=== PATIENT | female | born 1950 | race Caucasian/White ===

== ENCOUNTER 2016-07-24 12:58 | Emergency (ER) | payer MEDICARE ==
[~2016-07-24] VITALS: Ht 157.5 cm; Wt 75.3 kg
[~2016-07-24 12:58] MED LIST: ACET325T16 PO; AMLO10TA2 PO; ASPI81TA2 PO; ATOR20TA58 PO; CARI350T PO; CARV12.52 PO; CARV6.252 PO; CLOP75TA27 PO; FURO-69 PO; FURO40TA4 PO; HYDR-2666 PO; HYDR-2762 PO; HYDR-2868 PO; IBUP-1007 PO; INSU100C4 SQ; INSU100I11 SQ; INSU100I27 SQ; INSU100V13 SQ; ISOS30TA4 PO; POTA10TA10 PO; amlodipine PO; cozaar PO
[2016-07-24 13:44] LABS: BASO # 0.1 x10^3/uL (0.0-0.2); BASO % 1 % (0-3); EOS % 2 % (0-3); HEMATOCRIT 41.3 % (36.0-47.0); HEMOGLOBIN 14.1 g/dL (12.0-15.5); LYMPH # 1.6 x10^3/uL (1.0-4.8); LYMPH % 20 % (24-48); MEAN CORPUSCULAR HEMOGLOBIN 31 pg (25-35); MEAN CORPUSCULAR HGB CONC 34 g/dL (31-37); MEAN CORPUSCULAR VOLUME 92 fL (79-100); MONO % 7 % (0-9); NEUT % 71 % (31-73); PLATELET COUNT 217 x10^3/uL (140-400); RED BLOOD COUNT 4.51 x10^6/uL (3.50-5.40); RED CELL DISTRIBUTION WIDTH 13.3 % (11.5-14.5); WHITE BLOOD COUNT 8.3 x10^3/uL (4.0-11.0)
[2016-07-24 13:59] LABS: CALCIUM 9.4 mg/dL (8.5-10.1); CREATININE 1.2 mg/dL (0.6-1.0); GFR 45.1; POTASSIUM 4.3 mmol/L (3.5-5.1)
--- NOTE | 2016-07-24 14:15 | PHYS DOC ---
Past Medical History Past Medical History: CHF, CVA, Diabetes-Type II, Diverticulitis, High Cholesterol, Hypertension, TIA, Other Past Surgical History: Appendectomy, Cholecystectomy, Hysterectomy, Pacemaker, Other Additional Past Surgical Histo: exp lap, diverticulits surgery Alcohol Use: None Drug Use: None Adult General Chief Complaint Chief Complaint: OTHER COMPLAINTS [facility] HPI Patient is a 65 year old female who presents with for evaluation of atraumatic right neck pain that is constant and intermittent worsens. This pain has been present for weeks. She had an episode of worsening pain in her PCPs office associated with nausea, lightheadedness, and full body numbness. No LOC or chest pain. She had an EKG performed showing elevation in V2 and was sent to the ED for further eval. She now only has right neck pain. States it has calmed down back to her baseline pain. She denies headache, dizziness, numbness, tingling, weakness, vision changes, n/v, f/c, chest pain, dyspnea, cough, abd pain, leg pain or swelling. Review of Systems Review of Systems Constitutional: Denies fever or chills [] Eyes: Denies change in visual acuity, redness, or eye pain [] HENT: Denies nasal congestion or sore throat [] Respiratory: Denies cough or shortness of breath [] Cardiovascular: No additional information not addressed in HPI [] GI: Denies abdominal pain, nausea, vomiting, bloody stools or diarrhea [] : Denies dysuria or hematuria [] Musculoskeletal: Denies back pain or joint pain [] Integument: Denies rash or skin lesions [] Neurologic: Denies headache, focal weakness or sensory changes [] Endocrine: Denies polyuria or polydipsia [] Current Medications Current Medications Current Medications Medications (Trade) Dose Ordered Sig/Aleksandra Start Time Stop Time Status Last Admin Dose Admin Diazepam (Valium) 2 mg 1X ONCE 07/24/16 14:30 07/24/16 14:31 DC 07/24/16 14:21 2 MG Info (Do NOT chart on this entry -- for MONITORING) 1 each PRN DAILY PRN 07/24/16 14:45 07/24/16 19:13 DC Iohexol (Omnipaque 300 Mg/ml) 60 ml 1X ONCE 07/24/16 14:30 07/24/16 14:32 DC 07/24/16 14:30 60 ML Allergies Allergies Allergies Coded Allergies Type Severity Reaction Last Updated Verified morphine Allergy Intermediate SWELLING 09/16/15 Yes codeine Adverse Reaction Intermediate 07/20/16 Yes promethazine Adverse Reaction Intermediate CONFUSION 09/16/15 Yes Physical Exam Physical Exam Constitutional: Well developed, well nourished, no acute distress, non-toxic appearance. [] HENT: Normocephalic, atraumatic, bilateral external ears normal, oropharynx moist, no oral exudates, nose normal. [] Eyes: PERRLA, EOMI, conjunctiva normal, no discharge. [] Neck: Normal range of motion, no midline spinal tenderness, supple, no stridor. Has tenderness to right trapezius muscle with palpable spasm; no visual abnormality [] Cardiovascular:Heart rate regular rhythm [] Lungs & Thorax: Bilateral breath sounds clear to auscultation [] Abdomen: Bowel sounds normal, soft, no tenderness. [] Skin: Warm, dry, no erythema, no rash. [] Back: No tenderness, no CVA tenderness. [] Extremities: No tenderness, ROM intact, no edema. [] Neurologic: Alert and oriented X 3, normal motor function, normal sensory function, no focal deficits noted, cranial nerves II through XII intact. [] Psychologic: Affect normal, judgement normal, mood normal. [] Current Patient Data Vital Signs Vital Signs Date Time Temp Pulse Resp B/P Pulse Ox O2 Delivery O2 Flow Rate FiO2 07/24/16 16:22 65 15 194/83 Room Air 07/24/16 15:29 97.7 92 97.7 Lab Values Laboratory Tests Test 07/24/16 13:30 White Blood Count 8.3x10^3/uL (4.0-11.0) Red Blood Count 4.51x10^6/uL (3.50-5.40) Hemoglobin 14.1g/dL (12.0-15.5) Hematocrit 41.3% (36.0-47.0) Mean Corpuscular Volume 92fL (79-100) Mean Corpuscular Hemoglobin 31pg (25-35) Mean Corpuscular Hemoglobin Concent 34g/dL (31-37) Red Cell Distribution Width 13.3% (11.5-14.5) Platelet Count 217x10^3/uL (140-400) Neutrophils (%) (Auto) 71% (31-73) Lymphocytes (%) (Auto) 20% (24-48) L Monocytes (%) (Auto) 7% (0-9) Eosinophils (%) (Auto) 2% (0-3) Basophils (%) (Auto) 1% (0-3) Neutrophils # (Auto) 5.9x10^3uL (1.8-7.7) Lymphocytes # (Auto) 1.6x10^3/uL (1.0-4.8) Monocytes # (Auto) 0.6x10^3/uL (0.0-1.1) Eosinophils # (Auto) 0.2x10^3/uL (0.0-0.7) Basophils # (Auto) 0.1x10^3/uL (0.0-0.2) Sodium Level 146mmol/L (136-145) H Potassium Level 4.3mmol/L (3.5-5.1) Chloride Level 107mmol/L (98-107) Carbon Dioxide Level 31mmol/L (21-32) Anion Gap 8 (6-14) Blood Urea Nitrogen 26mg/dL (7-20) H Creatinine 1.2mg/dL (0.6-1.0) H Estimated GFR (Cockcroft-Gault) 45.1 Glucose Level 111mg/dL (70-99) H Calcium Level 9.4mg/dL (8.5-10.1) Troponin I Quantitative < 0.017ng/mL (0.000-0.055) PH-Jqe-N-Type Natriuretic Peptide 1207pg/mL (0-124) H Laboratory Tests 07/24/16 13:30 Laboratory Tests 07/24/16 13:30 EKG EKG Outside EKG as interpreted by me showing slight elevation in lead V2, otherwise nonacute, similar to prior EKGs EKG as interpreted by me as ventricularly paced, rate 58, no ischemic changes, similar to prior Radiology/Procedures Radiology/Procedures Head and neck CT with IV contrast IMPRESSION: 1. Mild scattered atherosclerotic changes as described above. 2. Mild calcific plaquing at both carotid bifurcations without evidence of significant stenosis. 2. No significant intracranial arterial abnormality is detected. DICTATED and SIGNED BY: VINEET BROWN MD DATE: 07/24/16 1551 Course & Med Decision Making Course & Med Decision Making Pertinent Labs and Imaging studies reviewed. (See chart for details) Workup is unremarkable. She continues to feel well. Suspect vasovagal event associated with severe muscle spasm, but offered admission for presyncopal episode for further workup. She would like to go home and follow up with her PCP. Return precautions given. She understands and agrees with plan. Dragon Disclaimer Dragon Disclaimer This electronic medical record was generated, in whole or in part, using a voice recognition dictation system. Departure Departure Impression: Primary Impression: Neck pain Disposition: HOME, SELF-CARE Condition: STABLE Referrals: LUI LUNDBERG (PCP) Patient Instructions: Musculoskeletal Pain Additional Instructions: Take cyclobenzaprine as needed for muscle spasm. Do not drink, drive or operate heavy machinery after taking cyclobenzaprine as it may make you sleepy. Follow- up with your primary care doctor. Return for any concerns. Scripts Cyclobenzaprine Hcl 5 Mg Tablet1 Tab PO TID PRN MUSCLE SPASMS #10 TAB Prov:Julisa CHILEL MD 07/24/16 Julisa CHILEL MD Jul 24, 2016 14:15
[2016-07-24] MEDS ORDERED: DIAZEPAM 10 MG/2 ML DISP.SYRIN. IV ONE (14:30)
[2016-07-24] MEDS ORDERED: IOHEXOL 300 MG/ML 75 ML VIAL IV ONE (14:30)
[2016-07-24] MEDS ORDERED: CONTRAST GIVEN MC PRN (14:45)
--- NOTE | 2016-07-24 14:57 | EKG ---
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
--- NOTE | 2016-07-24 16:05 | RAD ---
CTA of the head and neck with contrast, 07/24/2016: History: Neck pain, presyncope Multidetector CT imaging was performed following an IV bolus injection of iodinated contrast material. Multiplanar reconstructions were produced including 3-D volume rendered reconstructions of the major arteries. There is mild calcific plaquing involving the aortic arch without evidence of high-grade stenosis. The proximal, common carotid arteries are tortuous bilaterally. There is mild atherosclerotic plaquing at both carotid bifurcations with only minimal narrowing of the proximal internal carotid arteries. Both internal carotid arteries in the neck are widely patent up to the level of the inaja of [place]. There is only minimal calcific plaquing involving the cavernous segments. The anterior cerebral and middle cerebral arteries as well as their major branches are unremarkable. There is a prominent posterior communicating artery on the right. No aneurysm is evident. There is calcific plaquing at the origins of both vertebral arteries with only mild associated luminal narrowing. Both vertebral arteries in the neck are widely patent up to their junction with the basilar artery. There is minimal calcific plaquing involving the distal right vertebral artery. The basilar artery is unremarkable. The posterior cerebral arteries and their major branches show no abnormality. IMPRESSION: 1. Mild scattered atherosclerotic changes as described above. 2. Mild calcific plaquing at both carotid bifurcations without evidence of significant stenosis. 2. No significant intracranial arterial abnormality is detected. Note: Stenosis calculations for CT, MRA and conventional angiography are based upon determination of the distal ICA diameter in accordance with the NASCET methodology. Stenosis calculations for Doppler studies are derived from validated velocity criteria which are known to correlate with NASCET methodology of determining stenosis.
[2016-07-24 16:22] VITALS: BP 194/83
[2016-07-24] MEDS ORDERED: CYCL5TAB PO (16:29)
== END 2016-07-24 17:05 | disposition home or self-care (01) ==
LOC: ER 12:58
DX: M54.2 Cervicalgia (principal); M62.838 Other muscle spasm; R11.0 Nausea; R42 Dizziness and giddiness; R20.0 Anesthesia of skin; I11.0 Hypertensive heart disease with heart failure; I50.9 Heart failure, unspecified; E78.00 Pure hypercholesterolemia, unspecified; E11.9 Type 2 diabetes mellitus without complications; Z86.73 Personal history of transient ischemic attack (TIA), and cerebral infarction without residual deficits; Z88.8 Allergy status to other drugs, medicaments and biological substances; Z88.5 Allergy status to narcotic agent; Z96.89 Presence of other specified functional implants
CPT/HCPCS: 36415; 70496; 70498; 80048; 83880; 84484; 85027; 93005; 96374; 99285; J3360; Q9967

== ENCOUNTER → 2016-07-31 | Outpatient (CLI) | payer MEDICARE ==
[2016-07-24 16:22] VITALS: BP 194/83
[~2016-07-31] MED LIST changes: +CYCL5TAB PO
[2016-07-31 16:13] LABS: PROTHROMBIN TIME PATIENT 12.6 SEC (11.7-14.0)
[2016-07-31 16:47] LABS: ALBUMIN 3.4 g/dL (3.4-5.0); ALBUMIN/GLOBULIN RATIO 0.8 (1.0-1.7); CALCIUM 9.3 mg/dL (8.5-10.1); CREATININE 1.6 mg/dL (0.6-1.0); GFR 32.3; POTASSIUM 4.7 mmol/L (3.5-5.1); TOTAL BILIRUBIN 0.8 mg/dL (0.2-1.0); TOTAL PROTEIN 7.8 g/dL (6.4-8.2)
== END | disposition home or self-care (01) ==
LOC: SURGPAT 14:19
PROVIDERS: ATTEND Neurological Surgery
DX: M48.06 Spinal stenosis, lumbar region (principal); M43.16 Spondylolisthesis, lumbar region
CPT/HCPCS: 36415; 80053; 85610; 85730; 87641

== ENCOUNTER → 2017-03-06 | Outpatient (CLI) | payer MEDICARE ==
[~2017-03-06] VITALS: Ht 157.5 cm; Wt 81.6 kg
[2017-03-06] VITALS (20 sets, daily range): BP systolic 117–234; BP diastolic 65–112
[~2017-03-06] MED LIST changes: +ASPI-630 PO; -ASPI81TA2 PO; -CLOP75TA27 PO; +CLOP75TA57 PO; +CONTRAST GIVEN MC PRN; +FLUMAZENIL 0.5 MG/5 ML VIAL. IV ONE; +GELATIN SPONGE SIZE 12-7MM SPONGE. ONE; -HYDR-2666 PO; +HYDR-2758 PO; +IOHEXOL 300 MG/ML 75 ML VIAL IV ONE; +LIDOCAINE 1% / SOD BICARB 8.4% 20 ML VIAL. IJ ONE; +MIDAZOLAM HCL/PF 2 MG/2 ML VIAL. ONE; +NALOXONE 0.4 MG/ML VIAL. ONE; -POTA10TA10 PO; +POTA10TA12 PO; +fentaNYL PF VIAL 100 MCG/2 ML VIAL ONE
[2017-03-06 09:22] LABS: BASO # 0.1 x10^3/uL (0.0-0.2); BASO % 1 % (0-3); EOS % 5 % (0-3); HEMOGLOBIN 15.1 g/dL (12.0-15.5); LYMPH # 1.6 x10^3/uL (1.0-4.8); LYMPH % 24 % (24-48); MEAN CORPUSCULAR HEMOGLOBIN 30 pg (25-35); MEAN CORPUSCULAR HGB CONC 34 g/dL (31-37); MEAN CORPUSCULAR VOLUME 91 fL (79-100); MONO % 6 % (0-9); NEUT % 64 % (31-73); PLATELET COUNT 234 x10^3/uL (140-400); RED BLOOD COUNT 4.98 x10^6/uL (3.50-5.40); RED CELL DISTRIBUTION WIDTH 13.5 % (11.5-14.5); WHITE BLOOD COUNT 6.8 x10^3/uL (4.0-11.0)
[2017-03-06 09:43] LABS: INR 0.9 (0.8-1.1); PROTHROMBIN TIME PATIENT 11.8 SEC (11.7-14.0)
[2017-03-06] MEDS: amLODIPine BESYLATE 10 MG TABLET PO STA (09:52)
[2017-03-06] MEDS: LISINOPRIL 20 MG TABLET PO STA (09:52)
[2017-03-06] MEDS: CARVEDILOL 12.5 MG TABLET. PO STA (09:53)
[2017-03-06] MEDS: MIDAZOLAM HCL/PF 2 MG/2 ML VIAL. IV ONE (12:09)
[2017-03-06] MEDS: LIDOCAINE 1% / SOD BICARB 8.4% 20 ML VIAL. IJ ONE (12:09)
[2017-03-06] MEDS: fentaNYL PF VIAL 100 MCG/2 ML VIAL IV ONE (12:10)
--- NOTE | 2017-03-06 13:09 | RAD ---
CT-guided renal biopsy 03/06/2017 Indication: Nephrotic syndrome Discussion: The risks and benefits of the procedure were discussed the patient. Informed consent was obtained. The patient was brought to the CT scanner and placed in the prone position. Timeout procedure was performed. Due to inability to obtain routine AV access, a 4 Guinean vascular sheath was placed into the right brachial vein under direct ultrasound guidance. This was used for IV access during the case. CT imaging redemonstrates essentially normal renal anatomy. The inferior pole the left kidney was targeted for biopsy. 1% lidocaine without epinephrine was monitored for local anesthesia. Under intermittent CT guidance a 17-gauge guiding needle was advanced into the posterior inferior left renal cortex. 18-gauge core biopsy samples were obtained and divided amongst formalin and Leonel solution. Some bleeding was noted at the hub of the guiding needle following biopsy. Therefore Gelfoam embolization of the biopsy tract was performed. No further bleeding was identified. Repeat imaging was performed for removal of the guiding needle demonstrating no significant hematoma. Guiding needle was removed. Following a delay, repeat imaging was performed again demonstrating no significant retroperitoneal hematoma or other evidence of immediate complication. The patient remained hemodynamically stable throughout the procedure. The procedure was performed under conscious sedation including continuous cardiopulmonary monitoring via dedicated sedation nurse. Sedation time: 45 minutes. Impression: Successful CT-guided biopsy of the inferior pole, left kidney One or more of the following individualized dose reduction techniques were utilized for this examination: 1. Automated exposure control 2. Adjustment of the mA and/or kV according to patient size 3. Use of iterative reconstruction technique
--- NOTE | 2017-03-06 15:44 | RAD ---
Indication chronic renal disease. Assess for potential neoplasm. Axial images through the abdomen and pelvis were obtained. Approximately 60 cc of Omnipaque 300 was administered intravenously. No oral contrast was administered. Note is made of a biopsy to the left kidney several hours prior to this exam. No recent CT imaging of the abdomen is available. Note is made of a prior CT exam of the abdomen 07/13/2003. The lung bases are clear. The liver and spleen appear unremarkable. No pancreatic abnormality is seen. There are no adrenal masses. There is a left renal cyst measuring approximately 2 cm in greatest dimension. No solid masses seen associated with either kidney. Postbiopsy changes are noted about the left kidney. No significant central or retroperitoneal adenopathy in the abdomen is seen. In the pelvis occasional diverticula are seen associated with the large bowel. These are most numerous in the sigmoid colon. Active inflammation is not seen. There are some degenerative changes in the lumbar spine. IMPRESSION: No acute or significant finding seen in the abdomen or pelvis
--- NOTE | 2017-03-08 16:27 | PATHOLOGY ---
PATHOLOGY REPORT * * * * * * * * FINAL DIAGNOSIS: Percutaneous renal biopsy (gross examination only): - Specimen submitted to [email or web address] for evaluation. REPORT ELECTRONICALLY SIGNED BY: Munir Ray M.D. DATE/TIME: 03/08/2017 16:25 * * * * * * * * GROSS PATHOLOGY: A. Received fresh labeled Michelle Dunn and renal biopsy is a 1.2 x 0.1 cm presley tissue core, placed in formalin and forwarded to [facility] for further analysis. B. Received fresh labeled Michelle Dunn, and renal biopsy is a 1.2 x 0.1 cm red tissue core, placed in Leonel's solution and forwarded to [facility] for further analysis. (BRIANA; 03/06/2017) INITIAL CPT CODE(S): A; 69517 Professional services performed [place] [place] [address] Technical services performed by [facility] at [address] [place] [address], [place] [address]. SPECIMEN(S) RECEIVED: A.Percutaneous renal biopsy CLINICAL HISTORY: Nephrotic syndrome with morphologic changes PATIENT: VIRGIL DUNN /AGE: 4 1950 (Age: 66) PATIENT #: [id number] ALT CASE #: SPECIMEN COLLECTION DATE: 03/06/2017 SPECIMEN RECEIVED DATE: 03/06/2017 [facility] - [address] [place] [address] - PHONE: [phone] * * * END OF REPORT * * *
== END | disposition home or self-care (01) ==
LOC: CT 08:47
PROVIDERS: ATTEND Internal Medicine Nephrology
DX: I13.0 Hypertensive heart and chronic kidney disease with heart failure and stage 1 through stage 4 chronic kidney disease, or unspecified chronic kidney disease (principal); N18.9 Chronic kidney disease, unspecified; I50.9 Heart failure, unspecified; N04.9 Nephrotic syndrome with unspecified morphologic changes; E11.9 Type 2 diabetes mellitus without complications; Z95.5 Presence of coronary angioplasty implant and graft
CPT/HCPCS: 36415; 50200; 74177; 77012; 85025; 85610; J2250; J3010; Q9967; 99152; 99153; J2310; J3490

== ENCOUNTER → 2017-07-05 | Outpatient (CLI) | payer MEDICARE | END | disposition home or self-care (01) | LOC: KCIC CT 12:31 | DX: I67.82 Cerebral ischemia (principal); G31.89 Other specified degenerative diseases of nervous system; Z86.73 Personal history of transient ischemic attack (TIA), and cerebral infarction without residual deficits | CPT/HCPCS: 70450 ==

== ENCOUNTER → 2017-12-24 | Day surgery (SDC) | payer MEDICARE ==
[~2017-12-24] MED LIST changes: -ACET325T16 PO; -AMLO10TA2 PO; -ASPI-630 PO; -ATOR20TA58 PO; +BENZOCAINE ONE 20% MUCOSAL SPRAY.; -CARI350T PO; -CARV12.52 PO; -CARV6.252 PO; -CLOP75TA57 PO; -CONTRAST GIVEN MC PRN; -CYCL5TAB PO; -FLUMAZENIL 0.5 MG/5 ML VIAL. IV ONE; -FURO-69 PO; -FURO40TA4 PO; -GELATIN SPONGE SIZE 12-7MM SPONGE. ONE; -HYDR-2758 PO; -HYDR-2762 PO; -HYDR-2868 PO; -IBUP-1007 PO; -INSU100C4 SQ; -INSU100I11 SQ; -INSU100I27 SQ; -INSU100V13 SQ; -IOHEXOL 300 MG/ML 75 ML VIAL IV ONE; -ISOS30TA4 PO; -LIDOCAINE 1% / SOD BICARB 8.4% 20 ML VIAL. IJ ONE; +LIDOCAINE 1% PF 2 ML VIAL. ID; +LIDOCAINE 2% TOPICAL JELLY 5GM TUBE. TP; +LIDOCAINE 2% VISCOUS 15 ML SOLUTION.; -MIDAZOLAM HCL/PF 2 MG/2 ML VIAL. ONE; +MORPHINE SULFATE 2 MG/ML DISP.SYRIN. IV; -NALOXONE 0.4 MG/ML VIAL. ONE; +ONDANSETRON PF 4 MG/2 ML VIAL. IV; -POTA10TA12 PO; +PROCHLORPERAZINE 10 MG/2 ML VIAL. IV; +PROPOFOL 20 ML IV; -amlodipine PO; -cozaar PO; +fentaNYL PF VIAL 100 MCG/2 ML VIAL IV; -fentaNYL PF VIAL 100 MCG/2 ML VIAL ONE
[2017-12-24 11:50] LABS: POC GLUCOSE 128 mg/dL (70-99)
[2017-12-24] MEDS: IV RINGERS,LACTATED 1000ML 1,000 ML IV (12:05)
[2017-12-24] MEDS: LIDOCAINE 2% TOPICAL JELLY 5GM TUBE. TP (13:27)
[2017-12-24] MEDS: BENZOCAINE ONE 20% MUCOSAL SPRAY. MM (13:27)
[2017-12-24] MEDS: LIDOCAINE 2% VISCOUS 15 ML SOLUTION. SWSW (13:27)
== END | disposition home or self-care (01) ==
LOC: SURG 11:11
DX: I08.1 Rheumatic disorders of both mitral and tricuspid valves (principal); I13.0 Hypertensive heart and chronic kidney disease with heart failure and stage 1 through stage 4 chronic kidney disease, or unspecified chronic kidney disease; E11.22 Type 2 diabetes mellitus with diabetic chronic kidney disease; N18.3 Chronic kidney disease, stage 3 (moderate); K21.9 Gastro-esophageal reflux disease without esophagitis; E11.42 Type 2 diabetes mellitus with diabetic polyneuropathy; Z95.810 Presence of automatic (implantable) cardiac defibrillator; E78.00 Pure hypercholesterolemia, unspecified; Z79.01 Long term (current) use of anticoagulants; Z90.49 Acquired absence of other specified parts of digestive tract; E66.9 Obesity, unspecified; Z68.29 Body mass index [BMI] 29.0-29.9, adult; Z90.710 Acquired absence of both cervix and uterus; Z87.440 Personal history of urinary (tract) infections; M19.90 Unspecified osteoarthritis, unspecified site; Z98.890 Other specified postprocedural states; Z86.73 Personal history of transient ischemic attack (TIA), and cerebral infarction without residual deficits; Z86.19 Personal history of other infectious and parasitic diseases; Z80.0 Family history of malignant neoplasm of digestive organs; Z80.1 Family history of malignant neoplasm of trachea, bronchus and lung; Z83.6 Family history of other diseases of the respiratory system; Z83.3 Family history of diabetes mellitus; Z88.5 Allergy status to narcotic agent; Z88.8 Allergy status to other drugs, medicaments and biological substances; Z79.82 Long term (current) use of aspirin; Z79.899 Other long term (current) drug therapy; Z79.4 Long term (current) use of insulin; Z80.3 Family history of malignant neoplasm of breast; E44.1 Mild protein-calorie malnutrition
CPT/HCPCS: 76376; 82962; 93312; 93320; 93325; J2704

== ENCOUNTER 2018-08-24 17:50 | Inpatient (IN) | payer MEDICARE ==
[~2018-08-24] VITALS: Ht 157.5 cm; Wt 75.1 kg
[~2018-08-24 17:50] MED LIST changes: +ACET325T16 PO; +AMLO10TA8 PO; +ASPI-630 PO; +ATOR20TA58 PO; -BENZOCAINE ONE 20% MUCOSAL SPRAY.; +CARI350T PO; +CARV12.511 PO; +CARV6.2511 PO; +CLOP75TA57 PO; +CYCL5TAB PO; +FURO-69 PO; +FURO40TA4 PO; +FURO80TA72 PO; +HYDR-2761 PO; +HYDR-2765 PO; +HYDR-2868 PO; +HYDR-2869 PO; +HYDR100T24 PO; +IBUP-1007 PO; +INSU100C4 SQ; +INSU100I11 SQ; +INSU100I27 SQ; +INSU100V13 SQ; +ISOS30TA4 PO; -LIDOCAINE 1% PF 2 ML VIAL. ID; -LIDOCAINE 2% TOPICAL JELLY 5GM TUBE. TP; -LIDOCAINE 2% VISCOUS 15 ML SOLUTION.; +LISI-130 PO; -MORPHINE SULFATE 2 MG/ML DISP.SYRIN. IV; -ONDANSETRON PF 4 MG/2 ML VIAL. IV; +POTA10TA12 PO; -PROCHLORPERAZINE 10 MG/2 ML VIAL. IV; -PROPOFOL 20 ML IV; +SPIR25TA5 PO; +amlodipine PO; +cozaar PO; -fentaNYL PF VIAL 100 MCG/2 ML VIAL IV
[2018-08-24 19:42] VITALS: BP 149/80
[2018-08-24] MEDS ORDERED: FUROSEMIDE 40 MG/4 ML VIAL. IVP ONE (20:15)
[2018-08-24 20:17] LABS: BASE EXCESS ABG -7 mmol/L (-3-3); HCO3 ABG 22 mmol/L (21-28); PO2 ABG 162 mmHg (65-108); SAT O2 ABG 99 % (92-99)
[2018-08-24] MEDS ORDERED: ALBUTEROL SULFATE 2.5 MG/3 ML NEBU. NEB PRN (20:30)
[2018-08-24] MEDS ORDERED: DEXTROSE 50% 25 GM / 50ML DISP.SYRIN. IV PRN (20:30)
[2018-08-24] MEDS ORDERED: ONDANSETRON PF 4 MG/2 ML VIAL. IV PRN (20:30)
[2018-08-24] MEDS ORDERED: LORazepam 0.5 MG TABLET PO PRN (20:30)
[2018-08-24] MEDS: MILRINONE 20MG/100ML PREMIX 100 ML IV PRN (20:36)
[2018-08-24] MEDS ORDERED: cefTRIAXone IV Push 1 GM VIAL. IVP SCH (21:00)
[2018-08-24 21:02] LABS: FIO2 ABG 100; PCO2 ABG 60 mmHg (35-46)
[2018-08-24] MEDS: AZITHROMYCIN 250 MG TABLET. PO SCH (21:58)
[2018-08-24] MEDS: LACTOBACILLUS RHAMNOSUS GG 1 CAPSULE. PO SCH (21:58)
[2018-08-24] MEDS: ATORVASTATIN CALCIUM 10 MG TABLET. PO SCH (21:58)
[2018-08-24] MEDS: NYSTATIN TOPICAL POWDER 15GM BOTTLE. TP SCH (22:11)
[2018-08-24 22:32] VITALS: BP 162/71
[2018-08-25 03:02] VITALS: BP 156/70
[2018-08-25] MEDS: MILRINONE 20MG/100ML PREMIX 100 ML IV PRN ×2 (05:42→16:39)
[2018-08-25 07:35] VITALS: BP 168/68
[2018-08-25] MEDS ORDERED: CARVEDILOL 3.125 MG TABLET. PO SCH (08:00)
[2018-08-25] MEDS: IPRATRPIUM/ALBUTEROL 0.5/2.5MG 3 ML NEBU. NEB SCH ×4 (08:40→19:31)
[2018-08-25 08:55] LABS: BASO % 1 % (0-3); EOS # 0.1 x10^3/uL (0.0-0.7); EOS % 2 % (0-3); HEMATOCRIT 26.9 % (36.0-47.0); HEMOGLOBIN 8.7 g/dL (12.0-15.5); LYMPH # 0.6 x10^3/uL (1.0-4.8); LYMPH % 7 % (24-48); MEAN CORPUSCULAR HEMOGLOBIN 30 pg (25-35); MEAN CORPUSCULAR HGB CONC 33 g/dL (31-37); MEAN CORPUSCULAR VOLUME 92 fL (79-100); MONO # 0.6 x10^3/uL (0.0-1.1); MONO % 7 % (0-9); NEUT % 84 % (31-73); PLATELET COUNT 186 x10^3/uL (140-400); RED BLOOD COUNT 2.93 x10^6/uL (3.50-5.40); RED CELL DISTRIBUTION WIDTH 15.1 % (11.5-14.5); WHITE BLOOD COUNT 8.4 x10^3/uL (4.0-11.0)
[2018-08-25] MEDS ORDERED: ATOR10TA60 PO (09:12)
[2018-08-25] MEDS ORDERED: ALBU2.5V5 NEB (09:12)
[2018-08-25] MEDS ORDERED: AZIT500T PO (09:13)
[2018-08-25] MEDS ORDERED: CARV3.12 PO (09:14)
[2018-08-25] MEDS ORDERED: IPRA3AMP29 NEB (09:16)
[2018-08-25 09:21] LABS: BASE EXCESS ABG -5 mmol/L (-3-3); HCO3 ABG 21 mmol/L (21-28); PCO2 ABG 39 mmHg (35-46); PO2 ABG 69 mmHg (65-108); SAT O2 ABG 95 % (92-99)
[2018-08-25 09:22] LABS: FIO2 ABG 35%
[2018-08-25] MEDS ORDERED: AMLO10TA8 PO (09:22)
[2018-08-25] MEDS ORDERED: NYST15PO9 TP (09:22)
[2018-08-25] MEDS ORDERED: LACT1CAP19 PO (09:22)
[2018-08-25] MEDS ORDERED: LORA0.5T PO (09:22)
[2018-08-25] MEDS ORDERED: ISOS30TA4 PO (09:22)
[2018-08-25] MEDS ORDERED: HYDR100T24 PO (09:22)
[2018-08-25] MEDS ORDERED: GUAI600T47 PO (09:22)
[2018-08-25] MEDS ORDERED: SERT50TA PO (09:22)
[2018-08-25 09:35] LABS: ALBUMIN 2.4 g/dL (3.4-5.0); ALBUMIN/GLOBULIN RATIO 0.8 (1.0-1.7); CALCIUM 8.9 mg/dL (8.5-10.1); CREATININE 3.1 mg/dL (0.6-1.0); POTASSIUM 4.4 mmol/L (3.5-5.1); TOTAL BILIRUBIN 0.3 mg/dL (0.2-1.0); TOTAL PROTEIN 5.3 g/dL (6.4-8.2)
[2018-08-25] MEDS: ISOSORBIDE MONONITRATE ER 30 MG TAB.ER.24H PO SCH (09:49)
[2018-08-25] MEDS: LACTOBACILLUS RHAMNOSUS GG 1 CAPSULE. PO SCH ×2 (09:49→21:00)
[2018-08-25] MEDS: FUROSEMIDE 40 MG/4 ML VIAL. IVP SCH ×2 (09:49→14:09)
[2018-08-25] MEDS: SERTRALINE 50 MG TABLET. PO SCH (09:50)
[2018-08-25] MEDS: amLODIPine BESYLATE 10 MG TABLET PO SCH (09:50)
[2018-08-25] MEDS: CLOPIDOGREL BISULFATE 75 MG TABLET PO SCH (09:51)
--- NOTE | 2018-08-25 09:54 | PDOC ---
PROGRESS NOTES Subjective Subjective Please see recent consultation note from [facility]. Patient initially admitted for community-acquired pneumonia and acute on chronic systolic heart failure. Transfer to [facility] for progressive respiratory failure. Patient continues to complain of dyspnea and is presently on BiPAP. Objective Objective Vital Signs Date Time Temp Pulse Resp B/P (MAP) Pulse Ox O2 Delivery O2 Flow Rate FiO2 08/25/18 08:40 95 BiPAP/CPAP 08/25/18 07:35 98.7 104 24 168/68 (101) 98.7 08/24/18 19:42 6.0 Intake and Output 08/25/18 06:59 Intake Total 0 ml Output Total 200 ml Balance -200 ml Intake Oral 0 ml Output Urine Total 200 ml Physical Exam Abdomen: Soft, No tenderness Heart: Regular rate Extremities: Other (1+edema) General: mild distress, Other (on BiPAP) HEENT: Atraumatic Lungs: Other (bilateral basal crepitations) Psych/Mental Status: Mood NL Assessment Assessment 1. Acute respiratory failure secondary to combination of pneumonia and acute on chronic systolic heart failure. Patient had inadequate diuresis with intravenous Lasix. Started on milrinone infusion for inotropic support overnight. 2. NICM s/p biventricular ICD/STRATIGRAPHER-D implantation. Recent device check showed normal function. 2-D echo showed LVEF 30-35% 3. Hypertension: Blood pressure elevated. Increase Coreg dose for better control. 4. CKD stage IV: Nephrology consult 5. diabetes mellitus - per PCP Comment Review of Relevant I have reviewed the following items octavio (where applicable) has been applied. Labs Laboratory Tests Test 08/24/18 20:04 08/25/18 07:43 08/25/18 08:20 08/25/18 09:15 O2 Saturation 99 % (92-99) 95 % (92-99) Arterial Blood pH 7.18 (7.35-7.45) 7.35 (7.35-7.45) Arterial Blood pCO2 at Patient Temp 60 mmHg (35-46) 39 mmHg (35-46) Arterial Blood pO2 at Patient Temp 162 mmHg (65-108) 69 mmHg (65-108) Arterial Blood HCO3 22 mmol/L (21-28) 21 mmol/L (21-28) Arterial Blood Base Excess -7 mmol/L (-3-3) -5 mmol/L (-3-3) FiO2 100 35% Glucose (Fingerstick) 132 mg/dL (70-99) White Blood Count 8.4 x10^3/uL (4.0-11.0) Red Blood Count 2.93 x10^6/uL (3.50-5.40) Hemoglobin 8.7 g/dL (12.0-15.5) Hematocrit 26.9 % (36.0-47.0) Mean Corpuscular Volume 92 fL (79-100) Mean Corpuscular Hemoglobin 30 pg (25-35) Mean Corpuscular Hemoglobin Concent 33 g/dL (31-37) Red Cell Distribution Width 15.1 % (11.5-14.5) Platelet Count 186 x10^3/uL (140-400) Neutrophils (%) (Auto) 84 % (31-73) Lymphocytes (%) (Auto) 7 % (24-48) Monocytes (%) (Auto) 7 % (0-9) Eosinophils (%) (Auto) 2 % (0-3) Basophils (%) (Auto) 1 % (0-3) Neutrophils # (Auto) 7.0 x10^3uL (1.8-7.7) Lymphocytes # (Auto) 0.6 x10^3/uL (1.0-4.8) Monocytes # (Auto) 0.6 x10^3/uL (0.0-1.1) Eosinophils # (Auto) 0.1 x10^3/uL (0.0-0.7) Basophils # (Auto) 0.0 x10^3/uL (0.0-0.2) Sodium Level 144 mmol/L (136-145) Potassium Level 4.4 mmol/L (3.5-5.1) Chloride Level 110 mmol/L (98-107) Carbon Dioxide Level 22 mmol/L (21-32) Anion Gap 12 (6-14) Blood Urea Nitrogen 38 mg/dL (7-20) Creatinine 3.1 mg/dL (0.6-1.0) Estimated GFR (Cockcroft-Gault) 15.0 BUN/Creatinine Ratio 12 (6-20) Glucose Level 154 mg/dL (70-99) Calcium Level 8.9 mg/dL (8.5-10.1) Total Bilirubin 0.3 mg/dL (0.2-1.0) Aspartate Amino Transf (AST/SGOT) 17 U/L (15-37) Alanine Aminotransferase (ALT/SGPT) 14 U/L (14-59) Alkaline Phosphatase 127 U/L (46-116) BT-Twr-[id number]-Type Natriuretic Peptide > 18231 pg/mL (0-124) Total Protein 5.3 g/dL (6.4-8.2) Albumin 2.4 g/dL (3.4-5.0) Albumin/Globulin Ratio 0.8 (1.0-1.7) Medications Current Medications Albuterol Sulfate (Ventolin Neb Soln) 2.5 mg PRN Q4HRS PRN NEB SHORTNESS OF BREATH; Start 08/24/18 at 20:30 Albuterol/ Ipratropium (Duoneb) 3 ml RTQID NEB Last administered on 08/25/18at 08:40; Start 08/25/18 at 08:00 Amlodipine Besylate (Norvasc) 10 mg DAILY PO ; Start 08/25/18 at 09:00 Atorvastatin Calcium (Lipitor) 10 mg QHS PO Last administered on 08/24/18at 21: 58; Start 08/24/18 at 21:00 Azithromycin (Zithromax) 500 mg QHS PO Last administered on 08/24/18at 21:58; Start 08/24/18 at 21:00 Carvedilol (Coreg) 3.125 mg BIDWMEALS PO ; Start 08/25/18 at 08:00 Ceftriaxone Sodium (Rocephin) 1 gm Q24H IVP Last administered on 08/24/18at 22: 03; Start 08/24/18 at 21:00 Clopidogrel Bisulfate (Plavix) 75 mg DAILYWBKFT PO ; Start 08/25/18 at 08:00 Dextrose (Dextrose 50%-Water Syringe) 12.5 gm PRN Q15MIN PRN IV SEE COMMENTS; Start 08/24/18 at 20:30 Furosemide (Lasix) 40 mg 1X ONCE IVP Last administered on 08/24/18at 20:46; Start 08/24/18 at 20:15; Stop 08/24/18 at 20:16; Status DC Furosemide (Lasix) 40 mg BID92 IVP ; Start 08/25/18 at 09:00 Guaifenesin (Mucinex) 600 mg BID PO Last administered on 08/24/18 21:58; Start 08/24/18 at 21:00 Hydralazine HCl (Apresoline) 100 mg TID PO Last administered on 08/24/18at 22:02 ; Start 08/24/18 at 21:00 Isosorbide Mononitrate (Imdur) 30 mg DAILY PO ; Start 08/25/18 at 09:00 Lactobacillus Rhamnosus (Culturelle) 1 cap BID PO Last administered on at 21:58; Start 08/24/18 at 21:00 Lorazepam (Ativan) 0.5 mg PRN Q8HRS PRN PO ANXIETY / AGITATION; Start 08/24/18 at 20:30 Milrinone Lactate/ Dextrose 100 ml @ 0 mls/hr CONT PRN IV SEE I/O RECORD Last administered on 08/25/18at 05:42; Start 08/24/18 at 20:15 Nystatin (Nystop) 1 tejas BID TP Last administered on 08/24/18at 22:11; Start at 21:00 Ondansetron HCl (Zofran) 4 mg PRN Q4HRS PRN IV NAUSEA/VOMITING; Start 08/24/18 at 20:30 Sertraline HCl (Zoloft) 50 mg DAILY PO ; Start 08/25/18 at 09:00 Vitals/I & O Vital Sign - Last 24 Hours 08/24/18 08/24/18 08/24/18 08/24/18 19:42 20:15 22:02 22:32 Temp 98.0 97.6 98.0 97.6 Pulse 93 95 Resp 26 18 B/P (MAP) 149/80 (103) 124/59 162/71 (101) Pulse Ox 90 99 94 O2 Delivery Nasal Cannula BiPAP/CPAP BiPAP/CPAP O2 Flow Rate 6.0 08/24/18 08/24/18 08/25/18 08/25/18 23:00 23:22 01:41 03:02 Temp 97.7 97.7 Pulse 103 Resp 24 B/P (MAP) 156/70 (98) Pulse Ox 99 92 95 O2 Delivery Bi-pap BiPAP/CPAP BiPAP/CPAP BiPAP/CPAP 08/25/18 08/25/18 08/25/18 03:39 07:35 08:40 Temp 98.7 98.7 Pulse 104 Resp 24 B/P (MAP) 168/68 (101) Pulse Ox 96 94 95 O2 Delivery BiPAP/CPAP BiPAP/CPAP BiPAP/CPAP Intake and Output 08/24/18 08/24/18 08/25/18 14:59 22:59 06:59 Intake Total 0 ml Output Total 200 ml Balance -200 ml ИВАН ARTHUR MD Aug 25, 2018 09:54
[2018-08-25] MEDS: NYSTATIN TOPICAL POWDER 15GM BOTTLE. TP SCH ×2 (10:05→22:18)
--- NOTE | 2018-08-25 10:31 | RAD ---
CHEST AP ONLY Clinical Indication: WORSENING SHORTNESS OF BREATH Comparison: 01/03/2018 two-view chest x-ray exam. Findings: Triple lead left-sided ICD is present. Limited pulmonary inflation. The cardiomediastinal silhouette is normal. Retrocardiac left basilar consolidation and small pleural effusion noted. Very small right pleural effusion may present. There is no pneumothorax. No acute bone abnormality. IMPRESSION: Left basilar consolidation and pleural effusion. Small right pleural effusion. These findings are new in the interval. Electronically signed by: Ethan Anderson MD (08/25/2018 10:28 AM) [facility]
[2018-08-25 11:01] VITALS: BP 178/69
--- NOTE | 2018-08-25 11:10 | HP ---
ADMIT DATE: 08/25/2018 HISTORY OF PRESENT ILLNESS: The patient is a 67-year-old female patient who was admitted originally to [facility] on 08/21/2018 with increasing shortness of breath that has started 2 days prior to admission associated with cough that is mostly dry. She also noted that her left foot and lower leg is swollen more than the right. She denied any chest pain. She does not believe that she has any fever at home. She has no history of lung disease before. She was evaluated in the Emergency Room, has had lab work, which showed that her white cell count was normal. Her chemistry showed that she has chronic kidney disease. The BUN 38, creatinine 2.4. Her chest x-ray showed that the patient has mild cardiomegaly with bibasilar opacities, seems to have developed consolidation, although atelectasis may have similar appearance. She has small left-sided pleural effusion, but no pneumothorax and she was admitted with community-acquired pneumonia and possible congestive heart failure exacerbation. She was treated with the ceftriaxone and Zithromax and was admitted to [facility]. She was seen in consultation by Cardiology team as apparently she is well known to the Cardiology team, Dr. Angeles, he made some adjustments to her medication including starting her on Imdur and IV Lasix and he actually planned to transfer her to [facility] if the changes that she made not result in any improvement and therefore she was transferred to [facility]. She was started on milrinone drip. She did have an echocardiogram done there showed that she has left ventricular systolic function, it is moderately impaired, ejection fraction is 30-35% and there is a pacemaker lead in the right atrium and right ventricle. There is mild mitral regurgitation, trace tricuspid regurgitation. There is a trace circumferential pericardial effusion. PAST MEDICAL HISTORY: Significant for hypertension, hyperlipidemia, sick sinus syndrome, status post permanent pacemaker, type 2 diabetes mellitus, chronic kidney disease. She has history of hepatitis C that was treated 2 years ago. She has also left middle cerebral artery territory infarct with right-sided hemiplegia, aphasia and dysphagia. She has generalized osteoarthritis. PAST SURGICAL HISTORY: Significant for permanent pacemaker placement, colonoscopy, esophagogastroduodenoscopy, bilateral cataract extraction, tonsillectomy, cholecystectomy, appendectomy, total abdominal hysterectomy, and bilateral salpingo-oophorectomy. ALLERGIES: She is allergic to SULFA DRUGS, CODEINE, MORPHINE and PROMETHAZINE. MEDICATIONS: She was transferred to [facility] to continue on following medications: Flexeril 5 mg 3 times a day, Plavix 75 mg once a day, atorvastatin 20 mg at bedtime, hydralazine 50 mg in the morning and 100 mg at bedtime, carvedilol 25 mg twice a day, spironolactone 25 mg daily, aspirin 81 mg once a day, hydrocodone/APAP 5/325 one tablet every 6 hours. She is also on NovoLog insulin 10 units before meals and Levemir 26 units at bedtime. FAMILY HISTORY: She has one full sister who at age of 46 because of congestive heart failure and alcoholism. Her father at the age of 42 because of emphysema. Mother at the age of 42 because of breast cancer. SOCIAL HISTORY: She is , has 2 daughters, one of her daughters at the age of 46 because of what seemed to be over an overdose. She does not smoke, drink alcohol or recreational drugs. 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 Upon arrival, she was short of breath and her blood gases showed that her pH was 7.18, pCO2 of 60 and pO2 162. Her bicarbonate was 22 on FiO2 of 100%. She has had lab work done and the results, which were still pending at the time of this dictation. PHYSICAL EXAMINATION: GENERAL: When I examined her, she was resting, slightly propped up in bed, clearly tachypneic, pale, but no jaundice, cyanosis, or thyromegaly. No jugular venous distension. No lower limb edema. VITAL SIGNS: Her heart rate was 104, blood pressure 168/68, temperature was 98.7, respiratory rate 24, and oxygen saturation was 95% on BiPAP machine. HEAD: Showed normocephalic, atraumatic. NECK: Supple. HEART: Showed normal first and second heart sounds. No gallop, rub or murmur. CHEST: Shows central trachea, equal bilateral expansion, air entry, vesicular sounds. No crepitation or rhonchi. ABDOMEN: Distended, soft, nontender. NEUROLOGIC: She is awake, alert, responding appropriately. All cranial nerves intact. She has residual right-sided weakness. SUMMARY: In summary, this is a 67-year-old female patient who was originally admitted with community-acquired pneumonia. She has also acute on chronic systolic congestive heart failure as well as she has chronic kidney disease, hypertension, hyperlipidemia, sick sinus syndrome, status post permanent pacemaker, type 2 diabetes. She also has her left middle cerebral artery territory infarct with right-sided hemiplegia, aphasia and dysphagia. The nursing staff stated that she was choking on her medication yesterday. PLAN: My plan is to consult the Cardiology, Nephrology as well as the correctional facility nurse. We will also consult the speech therapist. I will repeat her blood gases this morning and continue with milrinone drip as recommended by the coloring room worker. RICK LUGO MD DR: MITZY/ishmael JOB#: [id number] / [id number]
[2018-08-25] MEDS ORDERED: PIP/TAZO PER PHARMACY MC PRN (13:00)
--- NOTE | 2018-08-25 13:03 | PDOC ---
PULMONARY PROGRESS NOTES Vitals Vital Signs Date Time Temp Pulse Resp B/P (MAP) Pulse Ox O2 Delivery O2 Flow Rate FiO2 08/25/18 11:53 95 Nasal Cannula 4.0 08/25/18 11:01 98.8 108 36 178/69 (105) 98.8 Lungs: Clear Labs Laboratory Tests Test 08/24/18 20:04 08/25/18 07:43 08/25/18 08:20 08/25/18 09:15 O2 Saturation 99 % (92-99) 95 % (92-99) Arterial Blood pH 7.18 (7.35-7.45) 7.35 (7.35-7.45) Arterial Blood pCO2 at Patient Temp 60 mmHg (35-46) 39 mmHg (35-46) Arterial Blood pO2 at Patient Temp 162 mmHg (65-108) 69 mmHg (65-108) Arterial Blood HCO3 22 mmol/L (21-28) 21 mmol/L (21-28) Arterial Blood Base Excess -7 mmol/L (-3-3) -5 mmol/L (-3-3) FiO2 100 35% Glucose (Fingerstick) 132 mg/dL (70-99) White Blood Count 8.4 x10^3/uL (4.0-11.0) Red Blood Count 2.93 x10^6/uL (3.50-5.40) Hemoglobin 8.7 g/dL (12.0-15.5) Hematocrit 26.9 % (36.0-47.0) Mean Corpuscular Volume 92 fL (79-100) Mean Corpuscular Hemoglobin 30 pg (25-35) Mean Corpuscular Hemoglobin Concent 33 g/dL (31-37) Red Cell Distribution Width 15.1 % (11.5-14.5) Platelet Count 186 x10^3/uL (140-400) Neutrophils (%) (Auto) 84 % (31-73) Lymphocytes (%) (Auto) 7 % (24-48) Monocytes (%) (Auto) 7 % (0-9) Eosinophils (%) (Auto) 2 % (0-3) Basophils (%) (Auto) 1 % (0-3) Neutrophils # (Auto) 7.0 x10^3uL (1.8-7.7) Lymphocytes # (Auto) 0.6 x10^3/uL (1.0-4.8) Monocytes # (Auto) 0.6 x10^3/uL (0.0-1.1) Eosinophils # (Auto) 0.1 x10^3/uL (0.0-0.7) Basophils # (Auto) 0.0 x10^3/uL (0.0-0.2) Sodium Level 144 mmol/L (136-145) Potassium Level 4.4 mmol/L (3.5-5.1) Chloride Level 110 mmol/L (98-107) Carbon Dioxide Level 22 mmol/L (21-32) Anion Gap 12 (6-14) Blood Urea Nitrogen 38 mg/dL (7-20) Creatinine 3.1 mg/dL (0.6-1.0) Estimated GFR (Cockcroft-Gault) 15.0 BUN/Creatinine Ratio 12 (6-20) Glucose Level 154 mg/dL (70-99) Calcium Level 8.9 mg/dL (8.5-10.1) Total Bilirubin 0.3 mg/dL (0.2-1.0) Aspartate Amino Transf (AST/SGOT) 17 U/L (15-37) Alanine Aminotransferase (ALT/SGPT) 14 U/L (14-59) Alkaline Phosphatase 127 U/L (46-116) GC-Gnp-F-Type Natriuretic Peptide > 44586 pg/mL (0-124) Total Protein 5.3 g/dL (6.4-8.2) Albumin 2.4 g/dL (3.4-5.0) Albumin/Globulin Ratio 0.8 (1.0-1.7) Test 08/25/18 12:12 Glucose (Fingerstick) 143 mg/dL (70-99) Laboratory Tests Test 08/24/18 20:04 08/25/18 07:43 08/25/18 08:20 08/25/18 09:15 O2 Saturation 99 % (92-99) 95 % (92-99) Arterial Blood pH 7.18 (7.35-7.45) 7.35 (7.35-7.45) Arterial Blood pCO2 at Patient Temp 60 mmHg (35-46) 39 mmHg (35-46) Arterial Blood pO2 at Patient Temp 162 mmHg (65-108) 69 mmHg (65-108) Arterial Blood HCO3 22 mmol/L (21-28) 21 mmol/L (21-28) Arterial Blood Base Excess -7 mmol/L (-3-3) -5 mmol/L (-3-3) FiO2 100 35% Glucose (Fingerstick) 132 mg/dL (70-99) White Blood Count 8.4 x10^3/uL (4.0-11.0) Red Blood Count 2.93 x10^6/uL (3.50-5.40) Hemoglobin 8.7 g/dL (12.0-15.5) Hematocrit 26.9 % (36.0-47.0) Mean Corpuscular Volume 92 fL (79-100) Mean Corpuscular Hemoglobin 30 pg (25-35) Mean Corpuscular Hemoglobin Concent 33 g/dL (31-37) Red Cell Distribution Width 15.1 % (11.5-14.5) Platelet Count 186 x10^3/uL (140-400) Neutrophils (%) (Auto) 84 % (31-73) Lymphocytes (%) (Auto) 7 % (24-48) Monocytes (%) (Auto) 7 % (0-9) Eosinophils (%) (Auto) 2 % (0-3) Basophils (%) (Auto) 1 % (0-3) Neutrophils # (Auto) 7.0 x10^3uL (1.8-7.7) Lymphocytes # (Auto) 0.6 x10^3/uL (1.0-4.8) Monocytes # (Auto) 0.6 x10^3/uL (0.0-1.1) Eosinophils # (Auto) 0.1 x10^3/uL (0.0-0.7) Basophils # (Auto) 0.0 x10^3/uL (0.0-0.2) Sodium Level 144 mmol/L (136-145) Potassium Level 4.4 mmol/L (3.5-5.1) Chloride Level 110 mmol/L (98-107) Carbon Dioxide Level 22 mmol/L (21-32) Anion Gap 12 (6-14) Blood Urea Nitrogen 38 mg/dL (7-20) Creatinine 3.1 mg/dL (0.6-1.0) Estimated GFR (Cockcroft-Gault) 15.0 BUN/Creatinine Ratio 12 (6-20) Glucose Level 154 mg/dL (70-99) Calcium Level 8.9 mg/dL (8.5-10.1) Total Bilirubin 0.3 mg/dL (0.2-1.0) Aspartate Amino Transf (AST/SGOT) 17 U/L (15-37) Alanine Aminotransferase (ALT/SGPT) 14 U/L (14-59) Alkaline Phosphatase 127 U/L (46-116) WQ-Shi-Z-Type Natriuretic Peptide > 41103 pg/mL (0-124) Total Protein 5.3 g/dL (6.4-8.2) Albumin 2.4 g/dL (3.4-5.0) Albumin/Globulin Ratio 0.8 (1.0-1.7) Test 08/25/18 12:12 Glucose (Fingerstick) 143 mg/dL (70-99) Medications Active Scripts Medications Dose Route/Sig Max Daily Dose Days Date Category Hydralazine Hcl 100 Mg Tablet 1 Tab PO TID 08/25/18 Reported Mucinex (Guaifenesin) 600 Mg Tablet.er 1 Tab PO BID 08/25/18 Reported Amlodipine Besylate 10 Mg Tablet 10 Mg PO DAILY 08/25/18 Reported Zoloft (Sertraline Hcl) 50 Mg Tablet 1 Tab PO DAILY 08/25/18 Reported Nystatin 15 Gm Powder 1 Betzy TP BID 08/25/18 Reported Lorazepam 0.5 Mg Tablet 1 Tab PO TID PRN PRN 08/25/18 Reported Culturelle (Lactobacillus Rhamnosus Gg) 1 Each Cap.sprink 1 Each PO BID 08/25/18 Reported Isosorbide Mononitrate Er (Isosorbide Mononitrate) 30 Mg Tab.er.24h 1 Tab PO DAILY 08/25/18 Reported Duoneb 0.5-3(2.5) Mg/3 Ml (Albuterol/Ipratropium) 3 Ml Ampul.neb 3 Ml NEB QID 08/25/18 Reported Coreg (Carvedilol) 3.125 Mg Tablet 3.125 Mg PO BIDWMEALS 08/25/18 Reported Zithromax (Azithromycin) 500 Mg Tablet 1 Tab PO DAILY 08/25/18 Reported Atorvastatin Calcium 10 Mg Tablet 10 Mg PO HS 08/25/18 Reported Albuterol Sulfate Neb Soln (Albuterol Sulfate) 2.5 Mg/3 Ml Vial.neb 1 Vial NEB PRN Q4HRS 08/25/18 Reported Levemir (Insulin Detemir) 100 Unit/1 Ml Vial 26 Unit SQ HS 07/20/16 Reported Novolog (Insulin Aspart) 100 Unit/1 Ml Cartridge 10 Unit SQ TIDAC 07/20/16 Reported Plavix (Clopidogrel Bisulfate) 75 Mg Tablet 75 Mg PO DAILY 09/15/15 Reported Impression . NOTE DICTATED ACUTE HYPERCAPNIA RESP FAILURE AGREE WITH CURRENT RX CHANGE ANTIBX TO ZOSYN ABG NOTED SPOKE WITH COLLEEN BANEGAS MD Aug 25, 2018 13:03
[2018-08-25] MEDS: CARVEDILOL 6.25 MG TABLET. PO SCH (13:09)
[2018-08-25] MEDS: METOPROLOL TARTRATE 5 MG/5 ML VIAL. IVP SCH ×2 (14:09→17:59)
[2018-08-25] MEDS: PIPERACILLIN/TAZOBACTAM 2.25 GM in IV NORMAL SALINE 50ML 50 ML IV SCH ×2 (14:10→17:59)
[2018-08-25] MEDS: HEPARIN for SUB-Q USE 5,000 UNIT/ML VIAL. SQ SCH ×2 (14:17→22:20)
[2018-08-25 15:14] VITALS: BP 154/67
[2018-08-25 19:40] VITALS: BP 151/67
[2018-08-25] MEDS: ATORVASTATIN CALCIUM 10 MG TABLET. PO SCH (21:00)
[2018-08-25] MEDS: AZITHROMYCIN 250 MG TABLET. PO SCH (21:00)
[2018-08-25 23:10] VITALS: BP 139/63
[2018-08-26] VITALS (42 sets, daily range): BP systolic 98–217; BP diastolic 53–94
[2018-08-26] MEDS: PIPERACILLIN/TAZOBACTAM 2.25 GM in IV NORMAL SALINE 50ML 50 ML IV SCH ×4 (02:29→18:11)
[2018-08-26] MEDS: METOPROLOL TARTRATE 5 MG/5 ML VIAL. IVP SCH ×4 (02:30→18:14)
[2018-08-26 04:54] LABS: HEMATOCRIT 27.1 % (36.0-47.0); HEMOGLOBIN 8.8 g/dL (12.0-15.5); RED BLOOD COUNT 2.96 x10^6/uL (3.50-5.40); RED CELL DISTRIBUTION WIDTH 15.3 % (11.5-14.5); WHITE BLOOD COUNT 8.5 x10^3/uL (4.0-11.0)
[2018-08-26 05:48] LABS: ALBUMIN 2.5 g/dL (3.4-5.0); ALBUMIN/GLOBULIN RATIO 0.7 (1.0-1.7); CALCIUM 9.3 mg/dL (8.5-10.1); CREATININE 3.5 mg/dL (0.6-1.0); POTASSIUM 4.1 mmol/L (3.5-5.1); TOTAL BILIRUBIN 0.4 mg/dL (0.2-1.0)
[2018-08-26] MEDS: HEPARIN for SUB-Q USE 5,000 UNIT/ML VIAL. SQ SCH ×2 (05:59→14:23)
[2018-08-26] MEDS: MILRINONE 20MG/100ML PREMIX 100 ML IV PRN (06:15)
[2018-08-26] MEDS: IPRATRPIUM/ALBUTEROL 0.5/2.5MG 3 ML NEBU. NEB SCH ×4 (07:33→19:21)
[2018-08-26] MEDS: CLOPIDOGREL BISULFATE 75 MG TABLET PO SCH (08:00)
[2018-08-26] MEDS: CARVEDILOL 6.25 MG TABLET. PO SCH ×2 (08:00→17:00)
--- NOTE | 2018-08-26 08:20 | CONS ---
DATE OF CONSULTATION: 08/25/2018 ATTENDING PHYSICIAN: Dr. Ramachandran. REASON FOR CONSULTATION: The patient is seen in pulmonary consultation at the request of Dr. Ramachandran for hypercapnic respiratory failure. HISTORY OF PRESENT ILLNESS: The patient is a 67-year-old that never smoked, no history of asthma, presented to the Emergency Department on 08/21/2018 at [facility] with increasing shortness of breath, left lower extremity edema. No chest pain. No pressure. The patient was ultimately transferred to [facility]. Yesterday, she had an arterial blood gas of pH of 7.18, paCO2 of 60, pO2 of 162. She was placed on BiPAP. Repeat arterial blood gas, pH of 7.32, paCO2 of 39, paO2 of 69. The patient has multiple comorbidities including cardiomyopathy with ejection fraction 30-35%. She has had previous biventricular ICD implantation. She is currently being treated with milrinone for inotropic support. She has been seen by Cardiology and treated for both acute on chronic systolic heart failure. She has had a chest x-ray, which revealed consolidation of the left lower lobe. I was asked to see her in consultation. The patient is also having some difficulty swallowing. She failed her dysphagia study. She is currently on Zithromax and ceftriaxone. She denies hemoptysis. No nausea, vomiting or diarrhea. PAST MEDICAL HISTORY: 1. Cardiomyopathy with ejection fraction of 30-35%, previous biventricular ICD placement. 2. Hyperlipidemia. 3. Type 2 diabetes. 4. Chronic kidney disease. 5. Hepatitis C. She was treated 2 years ago. 6. Previous infarct of left middle cerebral artery with right-sided hemiplegia, aphasia and dysphagia. 7. Generalized osteoarthritis. PAST SURGICAL HISTORY: Status post pacemaker implantation. She has had previous EGD, bilateral cataract extraction, tonsillectomy, cholecystectomy, appendectomy, total abdominal oophorectomy. ALLERGIES: LISTED TO CODEINE, MORPHINE AND PROMETHAZINE. REVIEW OF SYSTEMS: As indicated above, otherwise, a 10-point system was reviewed and negative. CURRENT MEDICATIONS: List was reviewed. PHYSICAL EXAMINATION: VITAL SIGNS: The patient was in no significant respiratory distress, currently on noninvasive ventilation with BiPAP. O2 saturation greater than 92%. HEENT: Eyes, the sclerae were nonicteric. NECK: Jugular venous distention was not elevated. No lymphadenopathy. CHEST: Full expansion. LUNGS: Adequate airflow with diminished breath sounds in the left base. CARDIOVASCULAR: Regular rate and rhythm with S1, S2. No S3. ABDOMEN: Soft, nontender, nondistended. EXTREMITIES: No clubbing, cyanosis, 1+ edema. NEUROLOGIC: The patient was awake, alert, following commands. A detailed neuro exam was not performed. LABORATORY DATA: Reviewed as indicated above. Chest x-ray as indicated above. IMPRESSION: 1. Acute hypercapnic hypoxemic respiratory failure. 2. Abnormal x-ray compatible with pneumonia, left lower lobe consolidation. 3. Acute on chronic systolic heart failure. 4. Previous history of cerebrovascular accident with dysphagia with right-sided hemiplegia and aphasia, improved. 5. Type 2 diabetes. 6. Obesity. 7. Hepatitis C, treated 2 years ago. PLAN: 1. Continue diuresis. 2. Continue BiPAP. 3. N.p.o. 4. May need nutritional support with Dobhoff tube placement. 5. Diurese. 6. Monitor BUN and creatinine. 7. Continue Rocephin and Zithromax. I do appreciate the privilege in sharing in the patient's care. COLLEEN QUIROS MD DR: VITO/ishmael JOB#: [id number] / [id number]
[2018-08-26] MEDS: LACTOBACILLUS RHAMNOSUS GG 1 CAPSULE. PO SCH ×2 (08:54→21:00)
[2018-08-26] MEDS: ISOSORBIDE MONONITRATE ER 30 MG TAB.ER.24H PO SCH (08:55)
[2018-08-26] MEDS: SERTRALINE 50 MG TABLET. PO SCH (08:55)
[2018-08-26] MEDS: amLODIPine BESYLATE 10 MG TABLET PO SCH (08:55)
--- NOTE | 2018-08-26 09:00 | PDOC ---
PULMONARY PROGRESS NOTES Subjective PT ON BIPAP NOT BETTER Vitals Vital Signs Date Time Temp Pulse Resp B/P (MAP) Pulse Ox O2 Delivery O2 Flow Rate FiO2 08/26/18 07:32 96 BiPAP/CPAP 08/26/18 07:19 98.5 101 22 158/69 (98) 98.5 08/25/18 11:53 4.0 ROS: No Nausea, No Chest Pain, No Abdominal Pain, No Increase Cough General: Alert Lungs: Crackles Cardiovascular: S1, S2 Abdomen: Soft Neuro Exam: Alert Extremities: Other (EDEMA) Skin: Warm Labs Laboratory Tests Test 08/24/18 20:04 08/25/18 07:43 08/25/18 08:20 08/25/18 09:15 O2 Saturation 99 % (92-99) 95 % (92-99) Arterial Blood pH 7.18 (7.35-7.45) 7.35 (7.35-7.45) Arterial Blood pCO2 at Patient Temp 60 mmHg (35-46) 39 mmHg (35-46) Arterial Blood pO2 at Patient Temp 162 mmHg (65-108) 69 mmHg (65-108) Arterial Blood HCO3 22 mmol/L (21-28) 21 mmol/L (21-28) Arterial Blood Base Excess -7 mmol/L (-3-3) -5 mmol/L (-3-3) FiO2 100 35% Glucose (Fingerstick) 132 mg/dL (70-99) White Blood Count 8.4 x10^3/uL (4.0-11.0) Red Blood Count 2.93 x10^6/uL (3.50-5.40) Hemoglobin 8.7 g/dL (12.0-15.5) Hematocrit 26.9 % (36.0-47.0) Mean Corpuscular Volume 92 fL (79-100) Mean Corpuscular Hemoglobin 30 pg (25-35) Mean Corpuscular Hemoglobin Concent 33 g/dL (31-37) Red Cell Distribution Width 15.1 % (11.5-14.5) Platelet Count 186 x10^3/uL (140-400) Neutrophils (%) (Auto) 84 % (31-73) Lymphocytes (%) (Auto) 7 % (24-48) Monocytes (%) (Auto) 7 % (0-9) Eosinophils (%) (Auto) 2 % (0-3) Basophils (%) (Auto) 1 % (0-3) Neutrophils # (Auto) 7.0 x10^3uL (1.8-7.7) Lymphocytes # (Auto) 0.6 x10^3/uL (1.0-4.8) Monocytes # (Auto) 0.6 x10^3/uL (0.0-1.1) Eosinophils # (Auto) 0.1 x10^3/uL (0.0-0.7) Basophils # (Auto) 0.0 x10^3/uL (0.0-0.2) Sodium Level 144 mmol/L (136-145) Potassium Level 4.4 mmol/L (3.5-5.1) Chloride Level 110 mmol/L (98-107) Carbon Dioxide Level 22 mmol/L (21-32) Anion Gap 12 (6-14) Blood Urea Nitrogen 38 mg/dL (7-20) Creatinine 3.1 mg/dL (0.6-1.0) Estimated GFR (Cockcroft-Gault) 15.0 BUN/Creatinine Ratio 12 (6-20) Glucose Level 154 mg/dL (70-99) Calcium Level 8.9 mg/dL (8.5-10.1) Total Bilirubin 0.3 mg/dL (0.2-1.0) Aspartate Amino Transf (AST/SGOT) 17 U/L (15-37) Alanine Aminotransferase (ALT/SGPT) 14 U/L (14-59) Alkaline Phosphatase 127 U/L (46-116) GI-Bvo-N-Type Natriuretic Peptide > 89622 pg/mL (0-124) Total Protein 5.3 g/dL (6.4-8.2) Albumin 2.4 g/dL (3.4-5.0) Albumin/Globulin Ratio 0.8 (1.0-1.7) Test 08/25/18 12:12 08/25/18 20:50 08/26/18 03:50 Glucose (Fingerstick) 143 mg/dL (70-99) 119 mg/dL (70-99) White Blood Count 8.5 x10^3/uL (4.0-11.0) Red Blood Count 2.96 x10^6/uL (3.50-5.40) Hemoglobin 8.8 g/dL (12.0-15.5) Hematocrit 27.1 % (36.0-47.0) Mean Corpuscular Volume 92 fL (79-100) Mean Corpuscular Hemoglobin 30 pg (25-35) Mean Corpuscular Hemoglobin Concent 33 g/dL (31-37) Red Cell Distribution Width 15.3 % (11.5-14.5) Platelet Count 198 x10^3/uL (140-400) Sodium Level 144 mmol/L (136-145) Potassium Level 4.1 mmol/L (3.5-5.1) Chloride Level 110 mmol/L (98-107) Carbon Dioxide Level 21 mmol/L (21-32) Anion Gap 13 (6-14) Blood Urea Nitrogen 42 mg/dL (7-20) Creatinine 3.5 mg/dL (0.6-1.0) Estimated GFR (Cockcroft-Gault) 13.0 BUN/Creatinine Ratio 12 (6-20) Glucose Level 136 mg/dL (70-99) Calcium Level 9.3 mg/dL (8.5-10.1) Total Bilirubin 0.4 mg/dL (0.2-1.0) Aspartate Amino Transf (AST/SGOT) 20 U/L (15-37) Alanine Aminotransferase (ALT/SGPT) 17 U/L (14-59) Alkaline Phosphatase 120 U/L (46-116) Total Protein 6.0 g/dL (6.4-8.2) Albumin 2.5 g/dL (3.4-5.0) Albumin/Globulin Ratio 0.7 (1.0-1.7) Laboratory Tests Test 08/25/18 09:15 08/25/18 12:12 08/25/18 20:50 08/26/18 03:50 O2 Saturation 95 % (92-99) Arterial Blood pH 7.35 (7.35-7.45) Arterial Blood pCO2 at Patient Temp 39 mmHg (35-46) Arterial Blood pO2 at Patient Temp 69 mmHg (65-108) Arterial Blood HCO3 21 mmol/L (21-28) Arterial Blood Base Excess -5 mmol/L (-3-3) FiO2 35% Glucose (Fingerstick) 143 mg/dL (70-99) 119 mg/dL (70-99) White Blood Count 8.5 x10^3/uL (4.0-11.0) Red Blood Count 2.96 x10^6/uL (3.50-5.40) Hemoglobin 8.8 g/dL (12.0-15.5) Hematocrit 27.1 % (36.0-47.0) Mean Corpuscular Volume 92 fL (79-100) Mean Corpuscular Hemoglobin 30 pg (25-35) Mean Corpuscular Hemoglobin Concent 33 g/dL (31-37) Red Cell Distribution Width 15.3 % (11.5-14.5) Platelet Count 198 x10^3/uL (140-400) Sodium Level 144 mmol/L (136-145) Potassium Level 4.1 mmol/L (3.5-5.1) Chloride Level 110 mmol/L (98-107) Carbon Dioxide Level 21 mmol/L (21-32) Anion Gap 13 (6-14) Blood Urea Nitrogen 42 mg/dL (7-20) Creatinine 3.5 mg/dL (0.6-1.0) Estimated GFR (Cockcroft-Gault) 13.0 BUN/Creatinine Ratio 12 (6-20) Glucose Level 136 mg/dL (70-99) Calcium Level 9.3 mg/dL (8.5-10.1) Total Bilirubin 0.4 mg/dL (0.2-1.0) Aspartate Amino Transf (AST/SGOT) 20 U/L (15-37) Alanine Aminotransferase (ALT/SGPT) 17 U/L (14-59) Alkaline Phosphatase 120 U/L (46-116) Total Protein 6.0 g/dL (6.4-8.2) Albumin 2.5 g/dL (3.4-5.0) Albumin/Globulin Ratio 0.7 (1.0-1.7) Medications Active Scripts Medications Dose Route/Sig Max Daily Dose Days Date Category Hydralazine Hcl 100 Mg Tablet 1 Tab PO TID 08/25/18 Reported Mucinex (Guaifenesin) 600 Mg Tablet.er 1 Tab PO BID 08/25/18 Reported Amlodipine Besylate 10 Mg Tablet 10 Mg PO DAILY 08/25/18 Reported Zoloft (Sertraline Hcl) 50 Mg Tablet 1 Tab PO DAILY 08/25/18 Reported Nystatin 15 Gm Powder 1 Betzy TP BID 08/25/18 Reported Lorazepam 0.5 Mg Tablet 1 Tab PO TID PRN PRN 08/25/18 Reported Culturelle (Lactobacillus Rhamnosus Gg) 1 Each Cap.sprink 1 Each PO BID 08/25/18 Reported Isosorbide Mononitrate Er (Isosorbide Mononitrate) 30 Mg Tab.er.24h 1 Tab PO DAILY 08/25/18 Reported Duoneb 0.5-3(2.5) Mg/3 Ml (Albuterol/Ipratropium) 3 Ml Ampul.neb 3 Ml NEB QID 08/25/18 Reported Coreg (Carvedilol) 3.125 Mg Tablet 3.125 Mg PO BIDWMEALS 08/25/18 Reported Zithromax (Azithromycin) 500 Mg Tablet 1 Tab PO DAILY 08/25/18 Reported Atorvastatin Calcium 10 Mg Tablet 10 Mg PO HS 08/25/18 Reported Albuterol Sulfate Neb Soln (Albuterol Sulfate) 2.5 Mg/3 Ml Vial.neb 1 Vial NEB PRN Q4HRS 08/25/18 Reported Levemir (Insulin Detemir) 100 Unit/1 Ml Vial 26 Unit SQ HS 07/20/16 Reported Novolog (Insulin Aspart) 100 Unit/1 Ml Cartridge 10 Unit SQ TIDAC 07/20/16 Reported Plavix (Clopidogrel Bisulfate) 75 Mg Tablet 75 Mg PO DAILY 09/15/15 Reported Impression . IMPRESSION: 1. Acute hypercapnic hypoxemic respiratory failure. 2. Abnormal x-ray compatible with pneumonia, left lower lobe consolidation. 3. Acute on chronic systolic heart failure. 4. Previous history of cerebrovascular accident with dysphagia with right- sided hemiplegia and aphasia, improved. 5. Type 2 diabetes. 6. Obesity. 7. Hepatitis C, treated 2 years ago. Plan . BIPAP NPO FOR NOW MAY NEED DOBHOFF CONTINUE ANTIBX COLLEEN QUIROS MD Aug 26, 2018 09:00
[2018-08-26] MEDS: FUROSEMIDE 40 MG/4 ML VIAL. IVP SCH (09:14)
--- NOTE | 2018-08-26 09:41 | PDOC ---
[facility] OFFICE COORDINATOR 08/26/18 0941: CARDIO Progress Notes Date and Time Date of Service 08/26/18 Time of Evaluation 0926 Subjective Subjective: Other (dyspneic- requiring BiPAP) Vitals Vitals Vital Signs Date Time Temp Pulse Resp B/P (MAP) Pulse Ox O2 Delivery O2 Flow Rate FiO2 08/26/18 09:24 95 BiPAP/CPAP 08/26/18 07:19 98.5 101 22 158/69 (98) 98.5 08/25/18 11:53 4.0 Weight Weight [ ] Input and Output Intake and Output Intake and Output 08/26/18 06:59 Intake Total 0 ml Output Total 450 ml Balance -450 ml Intake Oral 0 ml Output Urine Total 450 ml Laboratory Labs Laboratory Tests Test 08/25/18 12:12 08/25/18 17:10 08/25/18 20:50 08/26/18 03:50 Glucose (Fingerstick) 143 mg/dL (70-99) 150 mg/dL (70-99) 119 mg/dL (70-99) White Blood Count 8.5 x10^3/uL (4.0-11.0) Red Blood Count 2.96 x10^6/uL (3.50-5.40) Hemoglobin 8.8 g/dL (12.0-15.5) Hematocrit 27.1 % (36.0-47.0) Mean Corpuscular Volume 92 fL (79-100) Mean Corpuscular Hemoglobin 30 pg (25-35) Mean Corpuscular Hemoglobin Concent 33 g/dL (31-37) Red Cell Distribution Width 15.3 % (11.5-14.5) Platelet Count 198 x10^3/uL (140-400) Sodium Level 144 mmol/L (136-145) Potassium Level 4.1 mmol/L (3.5-5.1) Chloride Level 110 mmol/L (98-107) Carbon Dioxide Level 21 mmol/L (21-32) Anion Gap 13 (6-14) Blood Urea Nitrogen 42 mg/dL (7-20) Creatinine 3.5 mg/dL (0.6-1.0) Estimated GFR (Cockcroft-Gault) 13.0 BUN/Creatinine Ratio 12 (6-20) Glucose Level 136 mg/dL (70-99) Calcium Level 9.3 mg/dL (8.5-10.1) Total Bilirubin 0.4 mg/dL (0.2-1.0) Aspartate Amino Transf (AST/SGOT) 20 U/L (15-37) Alanine Aminotransferase (ALT/SGPT) 17 U/L (14-59) Alkaline Phosphatase 120 U/L (46-116) Total Protein 6.0 g/dL (6.4-8.2) Albumin 2.5 g/dL (3.4-5.0) Albumin/Globulin Ratio 0.7 (1.0-1.7) Test 08/26/18 07:00 Glucose (Fingerstick) 133 mg/dL (70-99) Physical Exam HEENT: Neck Supple W Full Motion LUNGS: Other (diminished bases) Heart: S1S2, RRR (v-paced) Extremities: Other (1+ bilateral LE edema ) Neurology: alert, follow commands Assessment Assessment 1. Acute respiratory failure. multifactorial in the setting of PNA and a/c HF. requiring BiPAP 2. Acute on chronic systolic heart failure; on milrinone. UOP marginal. CR continue to trend ^. Now 3.5- baseline near 2.0 2. NICM s/p Bi-V ICD/PRIVATE INQUIRY AGENT-D; LVEF 30-35% 3. Hypertension; labile. Oral pills held as patient on BiPAP 4. OLMAN on CKD; nephrology consulted 5. DM, II Recommendations Hold lasix with worsening RF No TRAE/ARB with OLMAN Hydralazine IV while unable to take PO. Follow renal recs Ongoing treatment on PNA EDWARDO PEARSON MD 08/27/18 0821: CARDIO Progress Notes Plan Plan Late entry for 08/26/2018. Patient seen and examined. Agree with above nurse practitioner note. Continues to have respiratory distress. Aggressive diuresis and milrinone support has not improved her respiratory status. Continues to have worsening renal function. We'll plan for a right heart catheterization on 08/27/2018 to determine her volume status. MARY BETH KINGSTON APRN Aug 26, 2018 09:41 EDWARDO PEARSON MD Aug 27, 2018 08:21
--- NOTE | 2018-08-26 10:07 | CONS ---
DATE OF CONSULTATION: REQUESTING PHYSICIAN: Hospitalist. REASON FOR CONSULTATION: Renal failure. HISTORY OF PRESENT ILLNESS: This is a 67-year-old female transferred to [facility]. She is admitted with a community-acquired infectious pneumonitis. The patient's history is also known for type 2 diabetes mellitus, hypertension, and chronic kidney disease. Due to increased level of azotemia, Nephrology evaluation was requested. 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 ALLERGIES: SULFA, CODEINE, MORPHINE and PROMETHAZINE. MEDICATIONS: Reviewed per medication list. FAMILY HISTORY: Noncontributory for renal disease. SOCIAL HISTORY: The patient is , has 2 daughters. Does not smoke, does not drink. REVIEW OF SYSTEMS: No headaches. The patient is unable to provide information. PHYSICAL EXAMINATION: GENERAL: The patient is somnolent, awakens, moans. HEENT: Face mask in place, sallow complexion. NECK: No increased JVD. No thyromegaly, mass, or adenopathy. LUNGS: Have decreased breath sound at bases. CARDIAC: Without S3 or rub. ABDOMEN: Obese. Bowel sounds are present. Nontender. EXTREMITIES: A 1+ bilateral lower extremity edema. NEUROLOGIC: Somnolent. LABORATORY DATA: White count of 8.4, hemoglobin 8.7, and hematocrit 26.9. Sodium 144, potassium 4.4, chloride 110, CO2 22, BUN 38, creatinine 3.1, and GFR is 15. IMPRESSION: 1. Chronic kidney disease, stage IV, now with acute exacerbation in setting of infectious pneumonitis. 2. Diabetes mellitus. RECOMMENDATIONS: 1. Treatment of pneumonia. 2. Fluid balance. 3. We will follow with you. BINDU IRELAND MD DR: PURA/ishmael JOB#: [id number] / [id number]
[2018-08-26] MEDS ORDERED: IV 1/2 NORMAL SALINE 1,000 ML IV SCH (10:30)
--- NOTE | 2018-08-26 12:25 | NUR ---
SS following for discharge planning. SS reviewed pt chart. Pt is from home with spouse and is currently requiring BIPAP. SS requested PT/OT orders. No discharge needs noted at this time. SS will await PT/OT evaluations and recommendations and will continue to follow for discharge planning.
[2018-08-26] MEDS ORDERED: NITROGLYCERIN PREMIX 250 ML IV ONE (12:30)
[2018-08-26] MEDS: NYSTATIN TOPICAL POWDER 15GM BOTTLE. TP SCH ×2 (12:54→21:00)
--- NOTE | 2018-08-26 14:03 | PDOC ---
Renal-Progress Notes Subjective Notes Notes SOB AND NEEDING BIPAP History of Present Illness Hx of present illness NOT ANY BETTER Vitals Vitals Vital Signs Date Time Temp Pulse Resp B/P (MAP) Pulse Ox O2 Delivery O2 Flow Rate FiO2 08/26/18 12:25 98 183/72 08/26/18 11:22 94 BiPAP/CPAP 08/26/18 10:51 98.2 22 98.2 08/25/18 11:53 4.0 Weight Weight [ ] I.O. Intake and Output Intake and Output 08/26/18 07:00 Intake Total 0 ml Output Total 450 ml Balance -450 ml Intake Oral 0 ml Output Urine Total 450 ml Labs Labs Laboratory Tests Test 08/25/18 17:10 08/25/18 20:50 08/26/18 03:50 08/26/18 07:00 Glucose (Fingerstick) 150 mg/dL (70-99) 119 mg/dL (70-99) 133 mg/dL (70-99) White Blood Count 8.5 x10^3/uL (4.0-11.0) Red Blood Count 2.96 x10^6/uL (3.50-5.40) Hemoglobin 8.8 g/dL (12.0-15.5) Hematocrit 27.1 % (36.0-47.0) Mean Corpuscular Volume 92 fL (79-100) Mean Corpuscular Hemoglobin 30 pg (25-35) Mean Corpuscular Hemoglobin Concent 33 g/dL (31-37) Red Cell Distribution Width 15.3 % (11.5-14.5) Platelet Count 198 x10^3/uL (140-400) Sodium Level 144 mmol/L (136-145) Potassium Level 4.1 mmol/L (3.5-5.1) Chloride Level 110 mmol/L (98-107) Carbon Dioxide Level 21 mmol/L (21-32) Anion Gap 13 (6-14) Blood Urea Nitrogen 42 mg/dL (7-20) Creatinine 3.5 mg/dL (0.6-1.0) Estimated GFR (Cockcroft-Gault) 13.0 BUN/Creatinine Ratio 12 (6-20) Glucose Level 136 mg/dL (70-99) Calcium Level 9.3 mg/dL (8.5-10.1) Total Bilirubin 0.4 mg/dL (0.2-1.0) Aspartate Amino Transf (AST/SGOT) 20 U/L (15-37) Alanine Aminotransferase (ALT/SGPT) 17 U/L (14-59) Alkaline Phosphatase 120 U/L (46-116) Total Protein 6.0 g/dL (6.4-8.2) Albumin 2.5 g/dL (3.4-5.0) Albumin/Globulin Ratio 0.7 (1.0-1.7) Test 08/26/18 11:47 Glucose (Fingerstick) 122 mg/dL (70-99) Review of Systems Constitutional: yes: weakness, alert, oriented Ears/Nose/Throat: Yes: no symptom reported Eyes: Yes: no symptom reported Cardiovascular: Yes no symptom reported Gastrointestional: Yes: no symptom reported Genitourinary: Yes: no symptom reported Musculoskeletal: Yes: muscle stiffness Skin: Yes no symptom reported Psychiatric/Neurological: Yes: no symptom reported Endocrine: Yes: no symptom reported Physical Exam General Appearance: mild distress Skin: warm Respiratory: decreased breath sounds Heart: S1S2 Abdomen: soft, bowel sounds present Genitourinary: bladder flat Neurology: alert, oriented Musculoskeletal: Osteoarthritis Assessment Assessment IMP OLMAN WITH CR UP TO 3.5 CKD STAGE 4 WITH CR OF ABOUT 2.0 AT BASELINE ACUTE HYPERCAPNIC HYPOXIC RESP FAILURE CM WITH AN EF OF ABOUT 30%-SYSTOLIC COMPONENT CHF ANEMIA OF CKD DM II HX ?PNEUMONIA PLAN DIURESE WHEN ABLE HOLD IVF'S MAY NEED INOTROPES CHECK IRON AND IF NEEDED EPOGEN UPDATED D/W CARDIOLOGY SAMIRA LYLES MD Aug 26, 2018 14:03
[2018-08-26] MEDS ORDERED: hydrALAZINE 20 MG/ML VIAL. IVP PRN (17:30)
[2018-08-26] MEDS: AZITHROMYCIN 250 MG TABLET. PO SCH (21:00)
[2018-08-26] MEDS: ATORVASTATIN CALCIUM 10 MG TABLET. PO SCH (21:00)
[2018-08-27] VITALS (45 sets, daily range): BP systolic 148–203; BP diastolic 66–140
[2018-08-27] MEDS: PIPERACILLIN/TAZOBACTAM 2.25 GM in IV NORMAL SALINE 50ML 50 ML IV SCH ×4 (00:56→17:40)
[2018-08-27] MEDS: METOPROLOL TARTRATE 5 MG/5 ML VIAL. IVP SCH ×5 (01:05→22:54)
[2018-08-27] MEDS: HEPARIN for SUB-Q USE 5,000 UNIT/ML VIAL. SQ SCH ×4 (01:09→22:53)
--- NOTE | 2018-08-27 01:11 | PN ---
DATE: 08/26/2018 SUBJECTIVE: The patient is resting flat in bed, on BiPAP machine, maintaining adequate saturations at 97% on FiO2 of 35%. She is n.p.o. as she has failed her video swallowing evaluation yesterday. She continued to be on milrinone. OBJECTIVE: GENERAL: When I examined her, she was pale, but not jaundiced or cyanosed from thyromegaly. No jugular venous distention. No lower limb edema. VITAL SIGNS: Her heart rate was 101, blood pressure was 158/69, temperature was 98.5, respiratory rate was 22 and oxygen saturation was 96% on BiPAP machine with an FiO2 of 35%. HEENT: Examination of the head, eyes, ears, nose and throat showed normocephalic, atraumatic. NECK: Supple. HEART: Showed normal first and second heart sounds. No gallop, rub or murmur. CHEST: Shows central trachea, equal bilateral expansion, air entry, vesicular sounds. I cannot really appreciate any crepitation or rhonchi anteriorly. ABDOMEN: Soft, nontender. NEUROLOGIC: She was sleepy, but arousable. All cranial nerves intact. She did have residual right-sided hemiplegia. Her intake was incompletely recorded, output was 200. LABORATORY DATA: Her lab work as of this morning showed her white cell count to be 8500, hemoglobin 8.8, hematocrit 27, MCV 92 and platelet count of 198,000. Her chemistry showed a serum sodium 144, potassium 4.1, chloride 110, bicarbonate 21, anion gap of 13, BUN 42, creatinine 3.5, estimated GFR was 13 mL per minute, her glucose was 136 and calcium was 9.3. Total bilirubin, AST and ALT were normal. Alkaline phosphatase slightly elevated. Her total protein was 6. Albumin 2.5. ASSESSMENT: 1. Acute respiratory failure secondary to combination of community-acquired pneumonia and tumcn-hj-ddwzzca systolic congestive heart failure. The patient was treated with IV Rocephin and Zithromax as well as IV Lasix. She continued to be short of breath. 2. The patient is known to have nonischemic cardiomyopathy, status post biventricular ICD implantation. Apparently, the device is functioning well. Her most recent echocardiogram showed left ventricular ejection fraction of 35%. 3. Hypertension, seems to be suboptimally controlled. She is on IV hydralazine, IV furosemide twice a day. 4. Nzahj-qi-deasuis kidney injury. Creatinine has risen from 3.1 to 3.5. 5. Type 2 diabetes mellitus, seems to be reasonably controlled. 6. She has obviously left middle cerebral artery territory infarct, right-sided hemiplegia, aphasia and dysphagia. The patient failed her video swallowing evaluation. She is now n.p.o. 7. She has severe protein-calorie malnutrition. Her serum albumin is only 2.5 g/dL. 8. Normochromic normocytic anemia. PLAN: Plan is to continue to keep the patient n.p.o., continue with IV antibiotic. Continue with nebulized treatment, IV hydralazine to control the blood pressure. I have already consulted the pile driver operator, wireline operator and sterile technician. The patient might obviously have a discussion with her regarding feeding tube placement and also hemodialysis as her kidney function is worsening. RICK LUGO MD DR: MITZY/ishmael JOB#: [id number] / [id number]
[2018-08-27 04:08] LABS: HEMATOCRIT 27.6 % (36.0-47.0); RED CELL DISTRIBUTION WIDTH 15.2 % (11.5-14.5); WHITE BLOOD COUNT 5.7 x10^3/uL (4.0-11.0)
[2018-08-27 04:22] LABS: CALCIUM 9.2 mg/dL (8.5-10.1); CREATININE 3.8 mg/dL (0.6-1.0); GFR 11.8; POTASSIUM 4.1 mmol/L (3.5-5.1)
[2018-08-27] MEDS: IPRATRPIUM/ALBUTEROL 0.5/2.5MG 3 ML NEBU. NEB SCH ×4 (07:30→20:00)
[2018-08-27] MEDS: NYSTATIN TOPICAL POWDER 15GM BOTTLE. TP SCH (08:00)
[2018-08-27] MEDS: CLOPIDOGREL BISULFATE 75 MG TABLET PO SCH (08:00)
[2018-08-27] MEDS: CARVEDILOL 6.25 MG TABLET. PO SCH ×2 (08:00→17:00)
[2018-08-27] MEDS: SERTRALINE 50 MG TABLET. PO SCH (09:00)
[2018-08-27] MEDS: LACTOBACILLUS RHAMNOSUS GG 1 CAPSULE. PO SCH ×2 (09:00→21:00)
[2018-08-27] MEDS: amLODIPine BESYLATE 10 MG TABLET PO SCH (09:00)
[2018-08-27] MEDS: ISOSORBIDE MONONITRATE ER 30 MG TAB.ER.24H PO SCH (09:00)
[2018-08-27] MEDS: fentaNYL PF VIAL 100 MCG/2 ML VIAL IV PRN ×2 (09:37→17:42)
--- NOTE | 2018-08-27 09:43 | PDOC ---
PULMONARY PROGRESS NOTES Subjective less soa/ using bipap qhs Vitals Vital Signs Date Time Temp Pulse Resp B/P (MAP) Pulse Ox O2 Delivery O2 Flow Rate FiO2 08/27/18 07:33 97 BiPAP/CPAP 08/27/18 06:40 81 167/78 (107) 08/27/18 03:30 98.6 22 98.6 ROS: No Nausea, No Chest Pain, No Abdominal Pain, No Increase Cough General: Alert, No acute distress Lungs: Other (decrease bs) Cardiovascular: S1, S2 Abdomen: Soft Neuro Exam: Alert Extremities: No Edema Skin: Warm Labs Laboratory Tests Test 08/25/18 12:12 08/25/18 17:10 08/25/18 20:50 08/26/18 03:50 Glucose (Fingerstick) 143 mg/dL (70-99) 150 mg/dL (70-99) 119 mg/dL (70-99) White Blood Count 8.5 x10^3/uL (4.0-11.0) Red Blood Count 2.96 x10^6/uL (3.50-5.40) Hemoglobin 8.8 g/dL (12.0-15.5) Hematocrit 27.1 % (36.0-47.0) Mean Corpuscular Volume 92 fL (79-100) Mean Corpuscular Hemoglobin 30 pg (25-35) Mean Corpuscular Hemoglobin Concent 33 g/dL (31-37) Red Cell Distribution Width 15.3 % (11.5-14.5) Platelet Count 198 x10^3/uL (140-400) Sodium Level 144 mmol/L (136-145) Potassium Level 4.1 mmol/L (3.5-5.1) Chloride Level 110 mmol/L (98-107) Carbon Dioxide Level 21 mmol/L (21-32) Anion Gap 13 (6-14) Blood Urea Nitrogen 42 mg/dL (7-20) Creatinine 3.5 mg/dL (0.6-1.0) Estimated GFR (Cockcroft-Gault) 13.0 BUN/Creatinine Ratio 12 (6-20) Glucose Level 136 mg/dL (70-99) Calcium Level 9.3 mg/dL (8.5-10.1) Total Bilirubin 0.4 mg/dL (0.2-1.0) Aspartate Amino Transf (AST/SGOT) 20 U/L (15-37) Alanine Aminotransferase (ALT/SGPT) 17 U/L (14-59) Alkaline Phosphatase 120 U/L (46-116) Total Protein 6.0 g/dL (6.4-8.2) Albumin 2.5 g/dL (3.4-5.0) Albumin/Globulin Ratio 0.7 (1.0-1.7) Test 08/26/18 07:00 08/26/18 11:47 08/26/18 17:06 08/26/18 20:54 Glucose (Fingerstick) 133 mg/dL (70-99) 122 mg/dL (70-99) 106 mg/dL (70-99) 87 mg/dL (70-99) Test 08/27/18 03:30 08/27/18 07:44 White Blood Count 5.7 x10^3/uL (4.0-11.0) Red Blood Count 3.00 x10^6/uL (3.50-5.40) Hemoglobin 9.0 g/dL (12.0-15.5) Hematocrit 27.6 % (36.0-47.0) Mean Corpuscular Volume 92 fL (79-100) Mean Corpuscular Hemoglobin 30 pg (25-35) Mean Corpuscular Hemoglobin Concent 33 g/dL (31-37) Red Cell Distribution Width 15.2 % (11.5-14.5) Platelet Count 164 x10^3/uL (140-400) Sodium Level 147 mmol/L (136-145) Potassium Level 4.1 mmol/L (3.5-5.1) Chloride Level 112 mmol/L (98-107) Carbon Dioxide Level 20 mmol/L (21-32) Anion Gap 15 (6-14) Blood Urea Nitrogen 42 mg/dL (7-20) Creatinine 3.8 mg/dL (0.6-1.0) Estimated GFR (Cockcroft-Gault) 11.8 Glucose Level 106 mg/dL (70-99) Calcium Level 9.2 mg/dL (8.5-10.1) Iron Level 18 ug/dL (50-170) Total Iron Binding Capacity 152 ug/dL (250-450) Iron Saturation 12 % (15-34) Glucose (Fingerstick) 100 mg/dL (70-99) Laboratory Tests Test 08/26/18 11:47 08/26/18 17:06 08/26/18 20:54 08/27/18 03:30 Glucose (Fingerstick) 122 mg/dL (70-99) 106 mg/dL (70-99) 87 mg/dL (70-99) White Blood Count 5.7 x10^3/uL (4.0-11.0) Red Blood Count 3.00 x10^6/uL (3.50-5.40) Hemoglobin 9.0 g/dL (12.0-15.5) Hematocrit 27.6 % (36.0-47.0) Mean Corpuscular Volume 92 fL (79-100) Mean Corpuscular Hemoglobin 30 pg (25-35) Mean Corpuscular Hemoglobin Concent 33 g/dL (31-37) Red Cell Distribution Width 15.2 % (11.5-14.5) Platelet Count 164 x10^3/uL (140-400) Sodium Level 147 mmol/L (136-145) Potassium Level 4.1 mmol/L (3.5-5.1) Chloride Level 112 mmol/L (98-107) Carbon Dioxide Level 20 mmol/L (21-32) Anion Gap 15 (6-14) Blood Urea Nitrogen 42 mg/dL (7-20) Creatinine 3.8 mg/dL (0.6-1.0) Estimated GFR (Cockcroft-Gault) 11.8 Glucose Level 106 mg/dL (70-99) Calcium Level 9.2 mg/dL (8.5-10.1) Iron Level 18 ug/dL (50-170) Total Iron Binding Capacity 152 ug/dL (250-450) Iron Saturation 12 % (15-34) Test 08/27/18 07:44 Glucose (Fingerstick) 100 mg/dL (70-99) Medications Active Scripts Medications Dose Route/Sig Max Daily Dose Days Date Category Hydralazine Hcl 100 Mg Tablet 1 Tab PO TID 08/25/18 Reported Mucinex (Guaifenesin) 600 Mg Tablet.er 1 Tab PO BID 08/25/18 Reported Amlodipine Besylate 10 Mg Tablet 10 Mg PO DAILY 08/25/18 Reported Zoloft (Sertraline Hcl) 50 Mg Tablet 1 Tab PO DAILY 08/25/18 Reported Nystatin 15 Gm Powder 1 Betzy TP BID 08/25/18 Reported Lorazepam 0.5 Mg Tablet 1 Tab PO TID PRN PRN 08/25/18 Reported Culturelle (Lactobacillus Rhamnosus Gg) 1 Each Cap.sprink 1 Each PO BID 08/25/18 Reported Isosorbide Mononitrate Er (Isosorbide Mononitrate) 30 Mg Tab.er.24h 1 Tab PO DAILY 08/25/18 Reported Duoneb 0.5-3(2.5) Mg/3 Ml (Albuterol/Ipratropium) 3 Ml Ampul.neb 3 Ml NEB QID 08/25/18 Reported Coreg (Carvedilol) 3.125 Mg Tablet 3.125 Mg PO BIDWMEALS 08/25/18 Reported Zithromax (Azithromycin) 500 Mg Tablet 1 Tab PO DAILY 08/25/18 Reported Atorvastatin Calcium 10 Mg Tablet 10 Mg PO HS 08/25/18 Reported Albuterol Sulfate Neb Soln (Albuterol Sulfate) 2.5 Mg/3 Ml Vial.neb 1 Vial NEB PRN Q4HRS 08/25/18 Reported Levemir (Insulin Detemir) 100 Unit/1 Ml Vial 26 Unit SQ HS 07/20/16 Reported Novolog (Insulin Aspart) 100 Unit/1 Ml Cartridge 10 Unit SQ TIDAC 07/20/16 Reported Plavix (Clopidogrel Bisulfate) 75 Mg Tablet 75 Mg PO DAILY 09/15/15 Reported Comments CXR CHF Impression . I 1. Acute hypercapnic/ hypoxemic respiratory failure due to CHF 2. Abnormal x-ray compatible with CHF/ cannot exclude pneumonia 3. Acute on chronic systolic heart failure. EF 30% 4. Previous history of cerebrovascular accident with dysphagia with right- sided hemiplegia and aphasia, improved. 5. Type 2 diabetes. 6. Obesity. 7. Hepatitis C, treated 2 years ago. 8. CKD Plan . BIPAP QHS RIGHT HEART CATH TODAY TO ASSESS VOLUME STATUS NPO FOR NOW MAY NEED DOBHOFF CONTINUE ANTIBX NON SMOKER/ NEBS MONITOR RENAL FUNCTION TD ANDRES MD Aug 27, 2018 09:43
--- NOTE | 2018-08-27 12:09 | PDOC ---
IRAJ CHOI SENIOR BOOKKEEPER 08/27/18 1209: CARDIO Progress Notes Date and Time Date of Service 08/27/2018 Time of Evaluation 1130 Subjective Subjective: No Chest Pain, No Palpitations, Other (still has SOA. ) Vitals Vitals Vital Signs Date Time Temp Pulse Resp B/P (MAP) Pulse Ox O2 Delivery O2 Flow Rate FiO2 08/27/18 11:36 Nasal Cannula 5.0 08/27/18 11:00 98.0 97 18 192/82 (118) 90 98.0 Weight Weight [ ] Input and Output Intake and Output Intake and Output 08/27/18 06:59 Intake Total 50 ml Output Total 900 ml Balance -850 ml Intake Oral 0 ml IV Total 50 ml Output Urine Total 900 ml # Bowel Movements 1 Laboratory Labs Laboratory Tests Test 08/26/18 17:06 08/26/18 20:54 08/27/18 03:30 08/27/18 07:44 Glucose (Fingerstick) 106 mg/dL (70-99) 87 mg/dL (70-99) 100 mg/dL (70-99) White Blood Count 5.7 x10^3/uL (4.0-11.0) Red Blood Count 3.00 x10^6/uL (3.50-5.40) Hemoglobin 9.0 g/dL (12.0-15.5) Hematocrit 27.6 % (36.0-47.0) Mean Corpuscular Volume 92 fL (79-100) Mean Corpuscular Hemoglobin 30 pg (25-35) Mean Corpuscular Hemoglobin Concent 33 g/dL (31-37) Red Cell Distribution Width 15.2 % (11.5-14.5) Platelet Count 164 x10^3/uL (140-400) Sodium Level 147 mmol/L (136-145) Potassium Level 4.1 mmol/L (3.5-5.1) Chloride Level 112 mmol/L (98-107) Carbon Dioxide Level 20 mmol/L (21-32) Anion Gap 15 (6-14) Blood Urea Nitrogen 42 mg/dL (7-20) Creatinine 3.8 mg/dL (0.6-1.0) Estimated GFR (Cockcroft-Gault) 11.8 Glucose Level 106 mg/dL (70-99) Calcium Level 9.2 mg/dL (8.5-10.1) Iron Level 18 ug/dL (50-170) Total Iron Binding Capacity 152 ug/dL (250-450) Iron Saturation 12 % (15-34) Test 08/27/18 11:57 Glucose (Fingerstick) 99 mg/dL (70-99) Review of Systems Constitutional: yes: weakness, alert, oriented Ears/Nose/Throat: Yes: no symptom reported Eyes: Yes: no symptom reported Cardiovascular: Yes no symptom reported Gastrointestional: Yes: no symptom reported Genitourinary: Yes: no symptom reported Musculoskeletal: Yes: muscle stiffness Skin: Yes no symptom reported Psychiatric/Neurological: Yes: no symptom reported Endocrine: Yes: no symptom reported Physical Exam HEENT: Neck Supple W Full Motion LUNGS: Other (basilar crackles) Heart: S1S2, RRR (v-paced) Abdomen: Soft N/T Extremities: Other (Trace bilateral LE edema ) Neurology: alert, oriented, follow commands Assessment Assessment 1. Acute respiratory failure. multifactorial in the setting of PNA, CHF. renal failure 2. Acute on chronic systolic heart failure; on milrinone. UOP marginal. CR continue to trend ^. Now 3.5- baseline near 2.0 2. 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 Hypertension; labile 4. OLMAN on CKD4; renal function worsening, nephrology following 5. DM, II Recommendations 1. Temporary HD due today for HD 2. Will note BP post HD and reeval needs. Meantime will DC NTG drip. Start on NTG paste. IV lopressor as pt failed swallow study. 3. Hold TRAE/ARB 4. Hydralazine IV PRN 5. Bipap PRN. 6. RHC on hold. EDWARDO PEARSON MD 08/27/18 1335: CARDIO Progress Notes Plan Plan Pt. seen and examined. Agree with above. Discussed with Dr. Granado. Plan for HD today. Cancel RHC. Supportive care. Will follow along IRAJ CHOI SENIOR BOOKKEEPER Aug 27, 2018 12:09 EDWARDO PEARSON MD Aug 27, 2018 13:35
[2018-08-27] MEDS: NITROGLYCERIN OINT 1 GM PACKET. TP SCH ×2 (12:27→17:41)
--- NOTE | 2018-08-27 12:56 | PDOC ---
Renal-Progress Notes Subjective Notes Notes STILL HAS SOB AND NOW SOME ANXIETY WELL History of Present Illness Hx of present illness OVERALL NOT GETTING ANY BETTER Vitals Vitals Vital Signs Date Time Temp Pulse Resp B/P (MAP) Pulse Ox O2 Delivery O2 Flow Rate FiO2 08/27/18 12:31 91 180/81 08/27/18 11:36 Nasal Cannula 5.0 08/27/18 11:00 98.0 18 90 98.0 Weight Weight [ ] I.O. Intake and Output Intake and Output 08/27/18 07:00 Intake Total 50 ml Output Total 900 ml Balance -850 ml Intake Oral 0 ml IV Total 50 ml Output Urine Total 900 ml # Bowel Movements 1 Labs Labs Laboratory Tests Test 08/26/18 17:06 08/26/18 20:54 08/27/18 03:30 08/27/18 07:44 Glucose (Fingerstick) 106 mg/dL (70-99) 87 mg/dL (70-99) 100 mg/dL (70-99) White Blood Count 5.7 x10^3/uL (4.0-11.0) Red Blood Count 3.00 x10^6/uL (3.50-5.40) Hemoglobin 9.0 g/dL (12.0-15.5) Hematocrit 27.6 % (36.0-47.0) Mean Corpuscular Volume 92 fL (79-100) Mean Corpuscular Hemoglobin 30 pg (25-35) Mean Corpuscular Hemoglobin Concent 33 g/dL (31-37) Red Cell Distribution Width 15.2 % (11.5-14.5) Platelet Count 164 x10^3/uL (140-400) Sodium Level 147 mmol/L (136-145) Potassium Level 4.1 mmol/L (3.5-5.1) Chloride Level 112 mmol/L (98-107) Carbon Dioxide Level 20 mmol/L (21-32) Anion Gap 15 (6-14) Blood Urea Nitrogen 42 mg/dL (7-20) Creatinine 3.8 mg/dL (0.6-1.0) Estimated GFR (Cockcroft-Gault) 11.8 Glucose Level 106 mg/dL (70-99) Calcium Level 9.2 mg/dL (8.5-10.1) Iron Level 18 ug/dL (50-170) Total Iron Binding Capacity 152 ug/dL (250-450) Iron Saturation 12 % (15-34) Test 08/27/18 11:57 Glucose (Fingerstick) 99 mg/dL (70-99) Review of Systems Constitutional: yes: weakness, alert, oriented Ears/Nose/Throat: Yes: no symptom reported Eyes: Yes: no symptom reported Pulmonary: Yes dyspnea Cardiovascular: Yes no symptom reported Gastrointestional: Yes: no symptom reported Genitourinary: Yes: no symptom reported Musculoskeletal: Yes: muscle stiffness Skin: Yes no symptom reported Psychiatric/Neurological: Yes: depressed, anxiety Endocrine: Yes: no symptom reported Physical Exam General Appearance: mild distress Skin: warm, dry, no edema Respiratory: decreased breath sounds Heart: S1S2, RRR Abdomen: soft, bowel sounds present Genitourinary: bladder flat Extremities: pulses present, no edema, atrophy Neurology: alert, oriented, follow commands Musculoskeletal: Osteoarthritis Assessment Assessment IMP OLMAN WITH CR UP TO 3.8-ATN AND POSSIBLE ESRD CKD STAGE 4 WITH CR OF ABOUT 2.0 AT BASELINE ACUTE HYPERCAPNIC HYPOXIC RESP FAILURE CM WITH AN EF OF ABOUT 30%-SYSTOLIC COMPONENT CHF ANEMIA OF CKD FE DEFICIENCY DM II HX ?PNEUMONIA PLAN RENAL FXN WORSE - NOT DIURESING WELL AND NOT TOLERATING IVF'S AT THIS POINT WILL NEED TO START HD AND REDUCE AFTER LOAD WILL HAVE IR PLACE TEMP HD CATHETER AND INITIATE HD MAY NEED INOTROPES START VENOFER AND ARANESP CHECK PO4 UPDATED PT AND FAMILY AGREEABLE TO STARTING HD D/W CARDIOLOGY SAMIRA LYLES MD Aug 27, 2018 12:56
--- NOTE | 2018-08-27 12:58 | NUR ---
SS following up with discharge planning. PT/OT recommending assisted unit. SS met with pt and discussed assisted unit and discharge planning. Pt reported that she has been to [facility] in [place] in the past. Pt reported that she had a stroke approximately one year ago and spent time in [facility] and [facility]. SS discussed rehab options in [place] with pt. Pt reported that she has a friend that works at [facility] in [place] and would prefer to go there for rehab. demand planner, Irma Rose, phoned and faxed referral to [facility] in [place], ; fax [phone]. SS notified pt's spouse and pt's RN.
[2018-08-27] MEDS ORDERED: IRON SUCROSE COMPLEX 500 MG in IV NORMAL SALINE 250ML 250 ML IV ONE (13:00)
[2018-08-27] MEDS ORDERED: LIDOCAINE WITH 8.4% SOD BICARB 3 ML DISP.SYRIN. ONE (15:08)
[2018-08-27] MEDS ORDERED: LIDOCAINE WITH 8.4% SOD BICARB 3 ML DISP.SYRIN. INJ ONE (15:30)
[2018-08-27] MEDS: hydrALAZINE 20 MG/ML VIAL. IVP PRN ×2 (15:32→20:31)
--- NOTE | 2018-08-27 15:40 | NUR ---
Patient went to have temporary dialysis catheter placed around 1540 & was back at around 1620. Per MARYCHUY Hancock in IR patient tolerated procedure well.
[2018-08-27] MEDS ORDERED: LIDOCAINE WITH 8.4% SOD BICARB 3 ML DISP.SYRIN. IJ ONE (16:00)
--- NOTE | 2018-08-27 16:09 | NUR ---
Pt tolerated procedure well. Pt rested well while on bipap. Report called to Petty on 2N.
--- NOTE | 2018-08-27 20:32 | NUR ---
Early this morning around 0800 patient taken off bipap & placed on 5L NC O2. Patient O2 sat running in low 90's with 5L NC. However, around 1530 while changing patient, she got worked up & desated to low 80's so bipap was put back on. Patient's O2 came back up to 90's once bipap was back on.
[2018-08-27] MEDS: ATORVASTATIN CALCIUM 10 MG TABLET. PO SCH (21:00)
[2018-08-27] MEDS ORDERED: DARBEPOETIN ALFA 60 MCG/0.3 ML DISP.SYRIN. SQ SCH (21:00)
[2018-08-27] MEDS: AZITHROMYCIN 250 MG TABLET. PO SCH (21:00)
[2018-08-27] MEDS ORDERED: NITROGLYCERIN PREMIX 250 ML IV ONE (22:00)
[2018-08-27] MEDS ORDERED: NITROGLYCERIN OINT 1 GM PACKET. TP ONE (23:30)
[2018-08-28] VITALS (8 sets, daily range): BP systolic 128–189; BP diastolic 67–97
--- NOTE | 2018-08-28 00:15 | PN ---
DATE: 08/27/2018 SUBJECTIVE: The patient is resting, slightly propped up in bed, in no apparent respiratory distress. She is awake, alert, complaining of dry mouth. Her blood pressure is high. She is now maintaining her oxygen saturation at 95% on 3 liters oxygen by nasal cannula. She denied any chest pain, feeling generally better. PHYSICAL EXAMINATION: GENERAL: When I examined her, she was pale. No jaundice, cyanosis or thyromegaly. No jugular venous distention. No limb edema. VITAL SIGNS: Her heart rate was 81, blood pressure was 167/78, temperature was 98.6 and respiratory rate was 22 and oxygen saturation was 96%. HEAD, EYES, EARS, NOSE AND THROAT: Normocephalic and atraumatic. NECK: Supple. HEART: Showed normal first and second heart sounds. No gallop, rub or murmur. CHEST: Clear to auscultation. No crepitation or rhonchi. ABDOMEN: Distended, soft and nontender. NEUROLOGICAL: She is definitely more awake, alert, responding appropriately. All cranial nerves intact. She has right-sided hemiparesis. Her intake was incompletely recorded, output was 450. LABORATORY DATA: Lab work showed a white cell count 5700; hemoglobin 9; hematocrit 27; MCV of 92 and platelet count of 164,000. Her serum sodium is up to 147, potassium 4.1, chloride 119, bicarbonate 20, anion gap of 15, BUN 42, creatinine 3.8. Estimated GFR was 11.8. Blood sugar was 106. Calcium was 9.2. Serum iron, TIBC, iron saturation. ASSESSMENT: 1. Acute respiratory failure secondary to combination of community-acquired pneumonia and [id number] systolic congestive heart failure. She is on IV Rocephin and Zithromax. 2. The patient is known to have nonischemic cardiomyopathy, status post biventricular implantable cardioverter-defibrillator implantation device is functioning well. Her most recent echocardiogram showed ejection fraction 35%. She is currently on milrinone drip. 3. Hypertension, seems to be suboptimally controlled. She is on IV hydralazine and IV furosemide twice a day. 4. [id number] kidney injury. Creatinine has risen further to 3.8. 5. Type 2 diabetes mellitus, seems to be easily controlled, left middle cerebral artery territory infarct, right-sided hemiplegia, aphasia and dysphagia. The patient has failed her speech and swallowing evaluation. She is now n.p.o. 6. Severe protein-calorie malnutrition with serum albumin is only 2.5 g/dL. 7. Normochromic normocytic anemia. PLAN: To apparently the patient is scheduled for right-sided catheterization. I will consult the physical and occupational therapist as well as speech therapist to evaluate her again. RICK LUGO MD DR: MITZY/ishmael JOB#: [id number] / [id number]
[2018-08-28] MEDS: hydrALAZINE 20 MG/ML VIAL. IVP PRN ×3 (01:01→21:04)
[2018-08-28] MEDS: PIPERACILLIN/TAZOBACTAM 2.25 GM in IV NORMAL SALINE 50ML 50 ML IV SCH ×4 (01:03→21:03)
[2018-08-28] MEDS: NITROGLYCERIN OINT 1 GM PACKET. TP SCH ×5 (01:03→23:32)
[2018-08-28] MEDS: NYSTATIN TOPICAL POWDER 15GM BOTTLE. TP SCH ×3 (01:04→21:04)
[2018-08-28] MEDS: fentaNYL PF VIAL 100 MCG/2 ML VIAL IV PRN ×3 (04:01→23:33)
[2018-08-28] MEDS: METOPROLOL TARTRATE 5 MG/5 ML VIAL. IVP SCH ×4 (05:37→23:33)
[2018-08-28] MEDS: HEPARIN for SUB-Q USE 5,000 UNIT/ML VIAL. SQ SCH ×3 (05:39→21:05)
[2018-08-28 07:59] LABS: HEMOGLOBIN 9.7 g/dL (12.0-15.5); RED BLOOD COUNT 3.26 x10^6/uL (3.50-5.40); RED CELL DISTRIBUTION WIDTH 15.3 % (11.5-14.5); WHITE BLOOD COUNT 5.9 x10^3/uL (4.0-11.0)
[2018-08-28] MEDS: CARVEDILOL 6.25 MG TABLET. PO SCH ×2 (08:00→16:35)
[2018-08-28] MEDS: CLOPIDOGREL BISULFATE 75 MG TABLET PO SCH (08:00)
[2018-08-28 08:16] LABS: CALCIUM 9.4 mg/dL (8.5-10.1); CREATININE 3.7 mg/dL (0.6-1.0); GFR 12.2; POTASSIUM 3.9 mmol/L (3.5-5.1)
[2018-08-28] MEDS: IPRATRPIUM/ALBUTEROL 0.5/2.5MG 3 ML NEBU. NEB SCH ×4 (08:25→20:24)
[2018-08-28] MEDS: ISOSORBIDE MONONITRATE ER 30 MG TAB.ER.24H PO SCH (09:00)
[2018-08-28] MEDS: SERTRALINE 50 MG TABLET. PO SCH (09:00)
[2018-08-28] MEDS: amLODIPine BESYLATE 10 MG TABLET PO SCH (09:00)
[2018-08-28] MEDS: LACTOBACILLUS RHAMNOSUS GG 1 CAPSULE. PO SCH ×2 (09:00→21:00)
--- NOTE | 2018-08-28 11:01 | PDOC ---
PULMONARY PROGRESS NOTES Subjective less soa/ using bipap qhs dysphagia persist Vitals Vital Signs Date Time Temp Pulse Resp B/P (MAP) Pulse Ox O2 Delivery O2 Flow Rate FiO2 08/28/18 09:00 91 189/81 08/28/18 08:25 94 BiPAP/CPAP 08/28/18 08:00 5.0 08/28/18 07:00 97.9 18 97.9 ROS: No Nausea, No Chest Pain, No Abdominal Pain, No Increase Cough General: Alert, No acute distress Lungs: Other (decrease bs) Cardiovascular: S1, S2 Abdomen: Soft Neuro Exam: Alert Extremities: No Edema Skin: Warm Labs Laboratory Tests Test 08/26/18 11:47 08/26/18 17:06 08/26/18 20:54 08/27/18 03:30 Glucose (Fingerstick) 122 mg/dL (70-99) 106 mg/dL (70-99) 87 mg/dL (70-99) White Blood Count 5.7 x10^3/uL (4.0-11.0) Red Blood Count 3.00 x10^6/uL (3.50-5.40) Hemoglobin 9.0 g/dL (12.0-15.5) Hematocrit 27.6 % (36.0-47.0) Mean Corpuscular Volume 92 fL (79-100) Mean Corpuscular Hemoglobin 30 pg (25-35) Mean Corpuscular Hemoglobin Concent 33 g/dL (31-37) Red Cell Distribution Width 15.2 % (11.5-14.5) Platelet Count 164 x10^3/uL (140-400) Sodium Level 147 mmol/L (136-145) Potassium Level 4.1 mmol/L (3.5-5.1) Chloride Level 112 mmol/L (98-107) Carbon Dioxide Level 20 mmol/L (21-32) Anion Gap 15 (6-14) Blood Urea Nitrogen 42 mg/dL (7-20) Creatinine 3.8 mg/dL (0.6-1.0) Estimated GFR (Cockcroft-Gault) 11.8 Glucose Level 106 mg/dL (70-99) Calcium Level 9.2 mg/dL (8.5-10.1) Iron Level 18 ug/dL (50-170) Total Iron Binding Capacity 152 ug/dL (250-450) Iron Saturation 12 % (15-34) Test 08/27/18 07:44 08/27/18 11:57 08/27/18 16:46 08/27/18 21:29 Glucose (Fingerstick) 100 mg/dL (70-99) 99 mg/dL (70-99) 97 mg/dL (70-99) 93 mg/dL (70-99) Test 08/28/18 07:50 08/28/18 07:53 White Blood Count 5.9 x10^3/uL (4.0-11.0) Red Blood Count 3.26 x10^6/uL (3.50-5.40) Hemoglobin 9.7 g/dL (12.0-15.5) Hematocrit 30.0 % (36.0-47.0) Mean Corpuscular Volume 92 fL (79-100) Mean Corpuscular Hemoglobin 30 pg (25-35) Mean Corpuscular Hemoglobin Concent 32 g/dL (31-37) Red Cell Distribution Width 15.3 % (11.5-14.5) Platelet Count 168 x10^3/uL (140-400) Sodium Level 150 mmol/L (136-145) Potassium Level 3.9 mmol/L (3.5-5.1) Chloride Level 115 mmol/L (98-107) Carbon Dioxide Level 19 mmol/L (21-32) Anion Gap 16 (6-14) Blood Urea Nitrogen 46 mg/dL (7-20) Creatinine 3.7 mg/dL (0.6-1.0) Estimated GFR (Cockcroft-Gault) 12.2 Glucose Level 97 mg/dL (70-99) Calcium Level 9.4 mg/dL (8.5-10.1) Glucose (Fingerstick) 76 mg/dL (70-99) Laboratory Tests Test 08/27/18 11:57 08/27/18 16:46 08/27/18 21:29 08/28/18 07:50 Glucose (Fingerstick) 99 mg/dL (70-99) 97 mg/dL (70-99) 93 mg/dL (70-99) White Blood Count 5.9 x10^3/uL (4.0-11.0) Red Blood Count 3.26 x10^6/uL (3.50-5.40) Hemoglobin 9.7 g/dL (12.0-15.5) Hematocrit 30.0 % (36.0-47.0) Mean Corpuscular Volume 92 fL (79-100) Mean Corpuscular Hemoglobin 30 pg (25-35) Mean Corpuscular Hemoglobin Concent 32 g/dL (31-37) Red Cell Distribution Width 15.3 % (11.5-14.5) Platelet Count 168 x10^3/uL (140-400) Sodium Level 150 mmol/L (136-145) Potassium Level 3.9 mmol/L (3.5-5.1) Chloride Level 115 mmol/L (98-107) Carbon Dioxide Level 19 mmol/L (21-32) Anion Gap 16 (6-14) Blood Urea Nitrogen 46 mg/dL (7-20) Creatinine 3.7 mg/dL (0.6-1.0) Estimated GFR (Cockcroft-Gault) 12.2 Glucose Level 97 mg/dL (70-99) Calcium Level 9.4 mg/dL (8.5-10.1) Test 08/28/18 07:53 Glucose (Fingerstick) 76 mg/dL (70-99) Medications Active Scripts Medications Dose Route/Sig Max Daily Dose Days Date Category Hydralazine Hcl 100 Mg Tablet 1 Tab PO TID 08/25/18 Reported Mucinex (Guaifenesin) 600 Mg Tablet.er 1 Tab PO BID 08/25/18 Reported Amlodipine Besylate 10 Mg Tablet 10 Mg PO DAILY 08/25/18 Reported Zoloft (Sertraline Hcl) 50 Mg Tablet 1 Tab PO DAILY 08/25/18 Reported Nystatin 15 Gm Powder 1 Betzy TP BID 08/25/18 Reported Lorazepam 0.5 Mg Tablet 1 Tab PO TID PRN PRN 08/25/18 Reported Culturelle (Lactobacillus Rhamnosus Gg) 1 Each Cap.sprink 1 Each PO BID 08/25/18 Reported Isosorbide Mononitrate Er (Isosorbide Mononitrate) 30 Mg Tab.er.24h 1 Tab PO DAILY 08/25/18 Reported Duoneb 0.5-3(2.5) Mg/3 Ml (Albuterol/Ipratropium) 3 Ml Ampul.neb 3 Ml NEB QID 08/25/18 Reported Coreg (Carvedilol) 3.125 Mg Tablet 3.125 Mg PO BIDWMEALS 08/25/18 Reported Zithromax (Azithromycin) 500 Mg Tablet 1 Tab PO DAILY 08/25/18 Reported Atorvastatin Calcium 10 Mg Tablet 10 Mg PO HS 08/25/18 Reported Albuterol Sulfate Neb Soln (Albuterol Sulfate) 2.5 Mg/3 Ml Vial.neb 1 Vial NEB PRN Q4HRS 08/25/18 Reported Levemir (Insulin Detemir) 100 Unit/1 Ml Vial 26 Unit SQ HS 07/20/16 Reported Novolog (Insulin Aspart) 100 Unit/1 Ml Cartridge 10 Unit SQ TIDAC 07/20/16 Reported Plavix (Clopidogrel Bisulfate) 75 Mg Tablet 75 Mg PO DAILY 09/15/15 Reported Comments CXR CHF Impression . I 1. Acute hypercapnic/ hypoxemic respiratory failure due to CHF 2. Abnormal x-ray compatible with CHF/ cannot exclude pneumonia 3. Acute on chronic systolic heart failure. EF 30% 4. Previous history of cerebrovascular accident with dysphagia with right- sided hemiplegia and aphasia, improved. 5. Type 2 diabetes. 6. Obesity. 7. Hepatitis C, treated 2 years ago. 8. CKD Plan . BIPAP QHS RIGHT HEART CATH CANCELLED HD INITIATED NPO FOR NOW/ VS IN AM CONTINUE ANTIBX NON SMOKER/ NEBS MONITOR RENAL FUNCTION REPEAT CXR POST UF TD ANDRES MD Aug 28, 2018 11:01
[2018-08-28] MEDS ORDERED: IV NORMAL SALINE 1000ML BAG 1,000 ML IV PRN ×2 (12:02)
--- NOTE | 2018-08-28 12:06 | PDOC ---
IRAJ CHOI BASEBALL HAND SEWER 08/28/18 1206: CARDIO Progress Notes Date and Time Date of Service 08/28/2018 Time of Evaluation 1205 Subjective Subjective: No Chest Pain, No Palpitations, Other (still has SOA but better than yesterday ) Vitals Vitals Vital Signs Date Time Temp Pulse Resp B/P (MAP) Pulse Ox O2 Delivery O2 Flow Rate FiO2 08/28/18 12:01 91 189/81 08/28/18 08:25 94 BiPAP/CPAP 08/28/18 08:00 5.0 08/28/18 07:00 97.9 18 97.9 Weight Weight [ ] Input and Output Intake and Output Intake and Output 08/28/18 06:59 Intake Total 0 ml Output Total 950 ml Balance -950 ml Intake Oral 0 ml Output Urine Total 950 ml # Bowel Movements 3 Laboratory Labs Laboratory Tests Test 08/27/18 16:46 08/27/18 21:29 08/28/18 07:50 08/28/18 07:53 Glucose (Fingerstick) 97 mg/dL (70-99) 93 mg/dL (70-99) 76 mg/dL (70-99) White Blood Count 5.9 x10^3/uL (4.0-11.0) Red Blood Count 3.26 x10^6/uL (3.50-5.40) Hemoglobin 9.7 g/dL (12.0-15.5) Hematocrit 30.0 % (36.0-47.0) Mean Corpuscular Volume 92 fL (79-100) Mean Corpuscular Hemoglobin 30 pg (25-35) Mean Corpuscular Hemoglobin Concent 32 g/dL (31-37) Red Cell Distribution Width 15.3 % (11.5-14.5) Platelet Count 168 x10^3/uL (140-400) Sodium Level 150 mmol/L (136-145) Potassium Level 3.9 mmol/L (3.5-5.1) Chloride Level 115 mmol/L (98-107) Carbon Dioxide Level 19 mmol/L (21-32) Anion Gap 16 (6-14) Blood Urea Nitrogen 46 mg/dL (7-20) Creatinine 3.7 mg/dL (0.6-1.0) Estimated GFR (Cockcroft-Gault) 12.2 Glucose Level 97 mg/dL (70-99) Calcium Level 9.4 mg/dL (8.5-10.1) Review of Systems Constitutional: yes: weakness, alert, oriented Ears/Nose/Throat: Yes: no symptom reported Eyes: Yes: no symptom reported Pulmonary: Yes dyspnea Cardiovascular: Yes no symptom reported Gastrointestional: Yes: no symptom reported Genitourinary: Yes: no symptom reported Musculoskeletal: Yes: muscle stiffness Skin: Yes no symptom reported Psychiatric/Neurological: Yes: depressed, anxiety Endocrine: Yes: no symptom reported Physical Exam HEENT: Neck Supple W Full Motion Chest: Symmetric LUNGS: Other (basilar crackles) Heart: S1S2, RRR (v-paced) Abdomen: Soft N/T Extremities: Other (Trace bilateral LE edema ) Neurology: alert, oriented, follow commands Assessment Assessment 1. Acute respiratory failure. multifactorial in the setting of PNA, CHF. renal failure 2. Acute on chronic systolic heart failure; on milrinone. UOP marginal. CR continue to trend ^. Now 3.5- baseline near 2.0 2. NICM s/p Bi-V ICD/DIGITAL ADVERTISING ANALYST-D; LVEF 30-35% 3. Hypertension; remains labile 4. OLMAN on CKD4 5. DM, II/HLP Recommendations 1. HD repeat today 2. Will note BP post HD . remains NPO. continue with NTG paste and place on clonidine TTS2 for now.Poor response to hydralazineIV. Labetolol IV PRN. 3. Hold TRAE/ARB 4. Bipap PRN. 5. supportive care. EDWARDO PEARSON MD 08/28/18 1816: CARDIO Progress Notes Plan Plan Pt. seen and examined. Agree with above. No improvement in BP. Has had HD. Able to remove fluid. Supportive care. Needs continued diuresis. Will plan for initiation of nicardipine. Thanks. IRAJ CHOI BASEBALL HAND SEWER Aug 28, 2018 12:06 EDWARDO PEARSON MD Aug 28, 2018 18:16
[2018-08-28] MEDS ORDERED: DIALYSIS PATIENT. MC PRN ×2 (12:15)
[2018-08-28] MEDS ORDERED: ALBUMIN HUMAN 25% 200 ML IV PRN (12:15)
[2018-08-28] MEDS ORDERED: 0.9 % SODIUM CHLORIDE 10 ML DISP.SYRIN. IV PRN ×2 (12:15)
[2018-08-28] MEDS ORDERED: cloNIDine TTS-2 1 PATCH PATCH TD ONE (12:15)
--- NOTE | 2018-08-28 12:22 | PDOC ---
Renal-Progress Notes Subjective Notes Notes STILL HAS SOME SOB History of Present Illness Hx of present illness STABLE OVERALL BUT NOT MUCH IMPROVED Vitals Vitals Vital Signs Date Time Temp Pulse Resp B/P (MAP) Pulse Ox O2 Delivery O2 Flow Rate FiO2 08/28/18 12:01 91 189/81 08/28/18 11:00 98.9 22 93 Nasal Cannula 5.0 98.9 Weight Weight [ ] I.O. Intake and Output Intake and Output 08/28/18 07:00 Intake Total 0 ml Output Total 950 ml Balance -950 ml Intake Oral 0 ml Output Urine Total 950 ml # Bowel Movements 3 Labs Labs Laboratory Tests Test 08/27/18 16:46 08/27/18 21:29 08/28/18 07:50 08/28/18 07:53 Glucose (Fingerstick) 97 mg/dL (70-99) 93 mg/dL (70-99) 76 mg/dL (70-99) White Blood Count 5.9 x10^3/uL (4.0-11.0) Red Blood Count 3.26 x10^6/uL (3.50-5.40) Hemoglobin 9.7 g/dL (12.0-15.5) Hematocrit 30.0 % (36.0-47.0) Mean Corpuscular Volume 92 fL (79-100) Mean Corpuscular Hemoglobin 30 pg (25-35) Mean Corpuscular Hemoglobin Concent 32 g/dL (31-37) Red Cell Distribution Width 15.3 % (11.5-14.5) Platelet Count 168 x10^3/uL (140-400) Sodium Level 150 mmol/L (136-145) Potassium Level 3.9 mmol/L (3.5-5.1) Chloride Level 115 mmol/L (98-107) Carbon Dioxide Level 19 mmol/L (21-32) Anion Gap 16 (6-14) Blood Urea Nitrogen 46 mg/dL (7-20) Creatinine 3.7 mg/dL (0.6-1.0) Estimated GFR (Cockcroft-Gault) 12.2 Glucose Level 97 mg/dL (70-99) Calcium Level 9.4 mg/dL (8.5-10.1) Test 08/28/18 10:46 Glucose (Fingerstick) 102 mg/dL (70-99) Review of Systems Constitutional: yes: weakness, alert, oriented Ears/Nose/Throat: Yes: no symptom reported Eyes: Yes: no symptom reported Pulmonary: Yes dyspnea Cardiovascular: Yes no symptom reported Gastrointestional: Yes: no symptom reported Genitourinary: Yes: no symptom reported Musculoskeletal: Yes: muscle stiffness Skin: Yes no symptom reported Psychiatric/Neurological: Yes: depressed, anxiety Endocrine: Yes: no symptom reported Physical Exam General Appearance: mild distress Skin: warm, dry, no edema Respiratory: decreased breath sounds Heart: S1S2, RRR Abdomen: soft, bowel sounds present Genitourinary: bladder flat Extremities: pulses present, no edema, atrophy Neurology: alert, oriented, follow commands Musculoskeletal: Osteoarthritis Assessment Assessment IMP OLMAN WITH CR UP TO 3.8-ATN AND POSSIBLE ESRD CKD STAGE 4 WITH CR OF ABOUT 2.0 AT BASELINE ACUTE HYPERCAPNIC HYPOXIC RESP FAILURE CM WITH AN EF OF ABOUT 30%-SYSTOLIC COMPONENT CHF ANEMIA OF CKD FE DEFICIENCY DM II HX [id number] VOLUME DEPENDENT ?PNEUMONIA S/P TEMP HD CATHETER PLAN RENAL FXN WORSE - NOT DIURESING WELL AND NOT TOLERATING IVF'S AT THIS POINT WILL NEED TO START HD AND REDUCE AFTER LOAD WILL HAVE IR PLACE TEMP HD CATHETER AND INITIATE HD MAY NEED INOTROPES STARTED VENAKHIL AND CHARLY CHECK PO4 TRIAL OF TRAE-I UPDATED HD TODAY UF ABOUT 2.0 LITERS D/W CARDIOLOGY SAMIRA LYLES MD Aug 28, 2018 12:22
--- NOTE | 2018-08-28 13:14 | RAD ---
Procedure: Ultrasound and fluoro guided placement of right internal jugular temporary dialysis catheter 08/28/2018 1:09 PM Clinical Indication: Renal failure, place temp hd catheter Discussion: The risks and benefits of the procedure were discussed the patient and/or their sales representative meats. Informed consent was obtained. A timeout procedure was performed. All elements of maximal sterile barrier technique including the use of a cap, mask, sterile gown, sterile gloves, large sterile sheet, appropriate hand hygiene, and 2% chlorhexidine for cutaneous antisepsis (or acceptable alternative antiseptic per current guidelines) were followed for this procedure. The patient was prepped and draped in the usual sterile fashion. Ultrasound interrogation of the right neck revealed patency and compressibility of the right internal jugular vein. A 21-gauge micropuncture was then used to gain access to this vein under ultrasound guidance. A hard copy ultrasound image was recorded. A guidewire was advanced centrally. 5 [place] sheath was placed. Over a wire following dilatation, temporary dialysis catheter was advanced centrally. Fluro eval demonstrates the catheter to be at the cavoatrial junction. Catheter was found to flush and aspirate normally Catheter secured in place and a sterile dressing was applied. No immediate complications were identified. Total fluoroscopy time: 1.4 MINS Dose area product: [id number] Impression: Successful ultrasound-guided placement of right internal temporary dialysis catheter
--- NOTE | 2018-08-28 13:59 | NUR ---
SS following up with discharge planning. Pt discussed with pt's RN. Referral to [facility] was discussed due to pt's medical condition. SS discussed with physician and pt's spouse. Pt's spouse agreeable to referral to [facility] for continued care. SS phoned and faxed referral to [facility], ; fax [phone]. SS awaiting acceptance decision and will proceed accordingly. Pt's RN notified.
[2018-08-28] MEDS: LABETALOL 20 MG/4 ML DISP.SYRIN. IVP PRN ×2 (18:18→21:04)
[2018-08-28] MEDS: ATORVASTATIN CALCIUM 10 MG TABLET. PO SCH (21:00)
[2018-08-28] MEDS: AZITHROMYCIN 250 MG TABLET. PO SCH (21:00)
--- NOTE | 2018-08-28 23:34 | PN ---
DATE: 08/28/2018 SUBJECTIVE: The patient is resting slightly propped up in bed, continued to complain of shortness of breath, cough. She apparently has had temporary hemodialysis catheter placed successfully yesterday and the decision made to start her on hemodialysis via right heart catheterization was canceled. PHYSICAL EXAMINATION: GENERAL: When I examined her this morning, she was resting slightly propped up in bed, in no apparent respiratory distress, somewhat pale, not jaundiced. No cyanosis or thyromegaly. No jugular venous distension. No lower limb edema. VITAL SIGNS: Her heart rate was 91, blood pressure was 189/81, temperature was 97.9, respiratory rate was 18 and oxygen saturation was 94% on 5 liters oxygen by nasal cannula. HEAD, EYES, EARS, NOSE AND THROAT: Showed normocephalic, atraumatic. NECK: Supple. HEART: Showed normal first and second sounds. No gallop, rub or murmur. CHEST: Clear to auscultation. No crepitation or rhonchi. ABDOMEN: Distended, soft, nontender. No guarding or rigidity. No organomegaly. All hernial orifices were intact. Bowel sounds normal. NEUROLOGIC: She was awake, alert, responding appropriately. All cranial nerves intact. She has dysarthria and right-sided hemiplegia. Apparently, she was seen by the speech therapist and she failed her bedside evaluation and she is scheduled for video swallowing evaluation tomorrow. Her intake over the last 24 hours was incompletely recorded, output was 900. LABORATORY DATA: Showed a white cell count of 5900, hemoglobin 9.7, hematocrit 30, MCV 92 and platelet count of 168,000. Serum sodium was 140, potassium 3.9, chloride 115, bicarbonate 19, anion gap of 16, BUN 46, creatinine 3.7, estimated GFR was 12 mL per minute. Her glucose was 97, calcium was 9.4. ASSESSMENT: 1. Acute hypoxic hypercapnic respiratory failure for which she was on BiPAP. She is now on 5 liters of oxygen, maintaining her oxygen saturation at 94%. 2. Acute on chronic systolic congestive heart failure due to nonischemic cardiomyopathy, status post biventricular implantable cardioverter defibrillator implantation, the device is functioning well. Her most recent echocardiogram showed ejection fraction of 35%. She is currently on milrinone drip. 3. Acute on chronic kidney injury. Creatinine is steadily rising and she has had a hemodialysis catheter placed and she is scheduled for hemodialysis. 4. Hypertension, is suboptimally controlled. 5. Type 2 diabetes mellitus, seems to be reasonably controlled. 6. Left middle cerebral artery territory infarct with right-sided hemiplegia, aphasia and dysphagia. The patient has failed again her swallowing evaluation. She is n.p.o. and she is scheduled for video swallowing evaluation tomorrow. 7. Severe protein calorie malnutrition, serum albumin 2.5 g/dL. 8. Normochromic normocytic anemia. PLAN: Is to discuss with the metallurgical engineer whether we can start her on TPN as she has not eaten for few days now. RICK LUGO MD DR: MITZY/ishmael JOB#: [id number] / [id number]
[2018-08-29 03:39] VITALS: BP 187/76
[2018-08-29] MEDS: PIPERACILLIN/TAZOBACTAM 2.25 GM in IV NORMAL SALINE 50ML 50 ML IV SCH ×2 (04:33→15:05)
[2018-08-29] MEDS: METOPROLOL TARTRATE 5 MG/5 ML VIAL. IVP SCH ×2 (04:33→12:31)
[2018-08-29] MEDS: hydrALAZINE 20 MG/ML VIAL. IVP PRN (04:33)
[2018-08-29] MEDS: NITROGLYCERIN OINT 1 GM PACKET. TP SCH ×2 (04:35→12:33)
[2018-08-29] MEDS: LABETALOL 20 MG/4 ML DISP.SYRIN. IVP PRN ×2 (05:12→17:30)
[2018-08-29] MEDS: HEPARIN for SUB-Q USE 5,000 UNIT/ML VIAL. SQ SCH ×2 (06:04→15:10)
[2018-08-29] MEDS ORDERED: 0.9 % SODIUM CHLORIDE 10 ML DISP.SYRIN. IV PRN ×2 (06:30)
[2018-08-29] MEDS ORDERED: IV NORMAL SALINE 1000ML BAG 1,000 ML IV PRN ×2 (06:30)
[2018-08-29] MEDS: CLOPIDOGREL BISULFATE 75 MG TABLET PO SCH (08:00)
[2018-08-29] MEDS: CARVEDILOL 6.25 MG TABLET. PO SCH ×2 (08:00→17:29)
[2018-08-29] MEDS: fentaNYL PF VIAL 100 MCG/2 ML VIAL IV PRN ×2 (08:23→15:17)
[2018-08-29] MEDS: IPRATRPIUM/ALBUTEROL 0.5/2.5MG 3 ML NEBU. NEB SCH ×3 (08:56→16:10)
[2018-08-29] MEDS: ISOSORBIDE MONONITRATE ER 30 MG TAB.ER.24H PO SCH (09:00)
[2018-08-29] MEDS: LACTOBACILLUS RHAMNOSUS GG 1 CAPSULE. PO SCH (09:00)
[2018-08-29] MEDS: amLODIPine BESYLATE 10 MG TABLET PO SCH (09:00)
[2018-08-29] MEDS: NYSTATIN TOPICAL POWDER 15GM BOTTLE. TP SCH (09:00)
[2018-08-29] MEDS: SERTRALINE 50 MG TABLET. PO SCH (09:00)
[2018-08-29] MEDS ORDERED: DIALYSIS PATIENT. MC PRN ×2 (09:45)
--- NOTE | 2018-08-29 09:56 | PDOC ---
IRAJ CHOI YARD WORKER 08/29/18 0956: CARDIO Progress Notes Date and Time Date of Service 08/29/2018 Time of Evaluation 0930 Subjective Subjective: No Chest Pain, No shortness of breath, No Palpitations, Other ( complains of ZALDIVAR) Vitals Vitals Vital Signs Date Time Temp Pulse Resp B/P (MAP) Pulse Ox O2 Delivery O2 Flow Rate FiO2 08/29/18 08:58 93 Nasal Cannula 2.0 08/29/18 08:23 25 08/29/18 05:12 76 168/74 08/29/18 03:39 99.0 99.0 Weight Weight [ ] Input and Output Intake and Output Intake and Output 08/29/18 06:59 Intake Total 50 ml Output Total 100 ml Balance -50 ml Intake Oral 0 ml IV Total 50 ml Output Urine Total 100 ml # Voids 2 Laboratory Labs Laboratory Tests Test 08/28/18 10:46 Glucose (Fingerstick) 102 mg/dL (70-99) Review of Systems Constitutional: yes: weakness, alert, oriented Ears/Nose/Throat: Yes: no symptom reported Eyes: Yes: no symptom reported Pulmonary: Yes dyspnea Cardiovascular: Yes no symptom reported Gastrointestional: Yes: no symptom reported Genitourinary: Yes: no symptom reported Musculoskeletal: Yes: muscle stiffness Skin: Yes no symptom reported Psychiatric/Neurological: Yes: depressed, anxiety Endocrine: Yes: no symptom reported Physical Exam HEENT: Neck Supple W Full Motion Chest: Symmetric LUNGS: Other (basilar crackles) Heart: S1S2, RRR (v-paced) Abdomen: Soft N/T Extremities: Other (Trace bilateral LE edema ) Neurology: alert, oriented, follow commands Assessment Assessment 1. Acute respiratory failure. multifactorial in the setting of PNA, CHF. renal failure 2. Acute on chronic systolic heart failure; SOA better 2. NICM s/p Bi-V ICD/COMPUTER EQUIPMENT REPAIRER-D; LVEF 30-35% 3. Hypertension; labile with generalized pain contributing, actually a little better with lorazepam and fentanyl per staff. 4. Possibly new ESRD 5. DM2/HLP 6. Arrhythmia overnight: NSVT x1, possible PAFIB Recommendations 1. HD repeat today. Remains NPO 2. Will note BP post HD Continue current Metoprolol IV, NTG paste and clonidine TTS 2. 3. Hold TRAE/ARB. Secondary prevention measures to be reevaluated once able to take PO. 4. Bipap PRN. 5. Monitor rhythm/lytes. supportive care. 6. No cardene started overnight, may need to if BP remains high.Discussed with RN. Labetolol IV PRN. EDWARDO PEARSON MD 08/29/18 1710: CARDIO Progress Notes Plan Plan Pt. seen and examined. Agree with above SHOVELER note. No acute events overnight. Resp status improved. Sleeping comfortably. Meds reviewed with RN. Able to take p.o meds. Continue coreg, hydralazine, imdur, amlodipine and prn labetelol. IRAJ CHOI YARD WORKER Aug 29, 2018 09:56 EDWARDO PEARSON MD Aug 29, 2018 17:10
[2018-08-29] MEDS ORDERED: BARIUM SULFATE 40% (APPLE) 148 GM PWD. PO ONE (10:45)
[2018-08-29 11:00] VITALS: BP 183/80
--- NOTE | 2018-08-29 11:48 | NUR ---
SS following up with discharge planning. Pt accepted at [facility]. Bed available at 1900 today. Pt getting swallow study at 1300 to determine diet. SS will await discharge orders for [facility] and will proceed accordingly. Pt's RN and physician notified. Pt's spouse agreeable to transfer.
--- NOTE | 2018-08-29 11:59 | PDOC ---
SUBJECTIVE ROS Stable, seen on HD OBJECTIVE Vital Signs Vital Signs Date Time Temp Pulse Resp B/P (MAP) Pulse Ox O2 Delivery O2 Flow Rate FiO2 08/29/18 11:00 98.6 22 183/80 (114) 94 Room Air 98.6 08/29/18 09:00 76 08/29/18 08:58 2.0 I & 0 Intake and Output 08/29/18 07:00 Intake Total 50 ml Output Total 100 ml Balance -50 ml Intake Oral 0 ml IV Total 50 ml Output Urine Total 100 ml # Voids 2 PHYSICAL EXAM Physical Exam General Appearance: NAD Skin: No rash Respiratory: decreased breath sounds, No accessory Muscle use Heart: S1S2, RRR Abdomen: soft, bowel sounds present Extremities: no edema, Neurology: alert, oriented, DIAGNOSIS/ASSESSMENT Assessment & Plan OLMAN - Cr peaked to 3.8-ATN and possible ESRD seen on HD, tolerating well Continue as Ordered , 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 Temp HD catheter , 2 nd Tx today Hypernatremia - as per yest Repeat in am CKD stage 4 - baseline 2.0 Acute Hypercapnic Resp failure CM - EF 30% Anemia- Fe Def On Venofer and Aranesp DM II HX HTN-Uncontrolled COMMENT/RELEVANT DATA Meds Current Medications Medications (Trade) Dose Ordered Sig/Aleksandra Start Time Stop Time Status Last Admin Dose Admin Albumin Human 200 ml @ 200 mls/hr 1X PRN PRN 08/28/18 12:15 08/28/18 18:14 DC Albuterol Sulfate (Ventolin Neb Soln) 2.5 mg PRN Q4HRS PRN 08/24/18 20:30 08/26/18 04:12 2.5 MG Albuterol/ Ipratropium (Duoneb) 3 ml RTQID 08/25/18 08:00 08/29/18 08:56 3 ML Amlodipine Besylate (Norvasc) 10 mg DAILY 08/25/18 09:00 08/25/18 09:50 10 MG Atorvastatin Calcium (Lipitor) 10 mg QHS 08/24/18 21:00 08/24/18 21:58 10 MG Azithromycin (Zithromax) 500 mg QHS 08/24/18 21:00 08/24/18 21:58 500 MG Barium Sulfate (Varibar Thin Liquid Apple) 148 gm 1X ONCE 08/29/18 10:45 08/29/18 10:46 DC Carvedilol (Coreg) 6.25 mg BIDWMEALS 08/25/18 17:00 Ceftriaxone Sodium (Rocephin) 1 gm Q24H 08/24/18 21:00 08/25/18 13:04 DC 08/24/18 22:03 1 GM Clonidine HCl (Catapres Tts-2) 1 patch 1X ONCE 08/28/18 12:15 08/28/18 12:16 DC 08/28/18 18:17 1 PATCH Clopidogrel Bisulfate (Plavix) 75 mg DAILYWBKFT 08/25/18 08:00 08/28/18 08:00 75 MG Darbepoetin Denis (Aranesp) 60 mcg Tu 08/27/18 21:00 08/27/18 22:00 60 MCG Dextrose (Dextrose 50%-Water Syringe) 12.5 gm PRN Q15MIN PRN 08/24/18 20:30 Fentanyl Citrate (Fentanyl 2ml Vial) 25 mcg PRN Q4HRS PRN 08/25/18 13:00 08/29/18 08:23 25 MCG Furosemide (Lasix) 40 mg 1X ONCE 08/24/18 20:15 08/24/18 20:16 DC 08/24/18 20:46 40 MG Guaifenesin (Mucinex) 600 mg BID 08/24/18 21:00 08/25/18 09:51 600 MG Heparin Sodium (Porcine) (Heparin Sodium) 5,000 unit Q8HRS 08/25/18 14:00 08/29/18 06:04 5,000 UNIT Hydralazine HCl (Apresoline Inj) 10 mg PRN Q4HRS PRN 08/26/18 17:30 08/26/18 17:30 DC Hydralazine HCl (Apresoline) 100 mg TID 08/24/18 21:00 08/25/18 09:50 100 MG Info (PHARMACY MONITORING -- do not chart) 1 each PRN DAILY PRN 08/29/18 09:45 Iron Sucrose 500 mg/Sodium Chloride 275 ml @ 78.571 mls/ hr 1X ONCE 08/27/18 13:00 08/27/18 16:29 DC 08/27/18 13:57 78.571 MLS/HR Isosorbide Mononitrate (Imdur) 30 mg DAILY 08/25/18 09:00 08/25/18 09:49 30 MG Labetalol HCl (Normodyne Iv Push) 20 mg PRN Q2HR PRN 08/28/18 12:15 08/29/18 05:12 20 MG Lactobacillus Rhamnosus (Culturelle) 1 cap BID 08/24/18 21:00 08/25/18 09:49 1 CAP Lidocaine/Sodium Bicarbonate (Buffered Lidocaine 1%) 4 ml 1X ONCE 08/27/18 16:00 08/27/18 16:16 DC 08/27/18 16:00 4 ML Lorazepam (Ativan) 0.5 mg PRN Q8HRS PRN 08/25/18 12:45 08/27/18 20:27 0.5 MG Metoprolol Tartrate (Lopressor Vial) 5 mg Q6HRS 08/25/18 13:00 08/29/18 04:33 5 MG Milrinone Lactate/ Dextrose 100 ml @ 0 mls/hr CONT PRN 08/24/18 20:15 08/26/18 12:18 DC 08/26/18 06:15 9 MLS/HR Nicardipine HCl 50 mg/Sodium Chloride 250 ml @ 25 mls/hr CONT PRN 08/28/18 18:15 Nitroglycerin (Nitro-Bid Oint) 1 inch Q6HRS 08/28/18 00:00 08/29/18 04:35 1 INCH Nitroglycerin/ Dextrose 250 ml @ 0 mls/hr 1X ONCE 08/27/18 22:00 08/27/18 22:01 DC Nystatin (Nystop) 1 tejas BID 08/24/18 21:00 08/28/18 21:04 1 TEJAS Ondansetron HCl (Zofran) 4 mg PRN Q4HRS PRN 08/24/18 20:30 08/25/18 11:30 4 MG Piperacillin Sod/ Tazobactam Sod (Zosyn Per Pharmacy) 1 each PRN DAILY PRN 08/25/18 13:00 Piperacillin Sod/ Tazobactam Sod 2.25 gm/Sodium Chloride 50 ml @ 100 mls/hr Q8HRS 08/28/18 21:00 08/29/18 04:33 100 MLS/HR Sertraline HCl (Zoloft) 50 mg DAILY 08/25/18 09:00 08/25/18 09:50 50 MG Sodium Chloride 1,000 ml @ 400 mls/hr Q2H30M PRN 08/29/18 06:30 08/29/18 18:29 Sodium Chloride (Normal Saline Flush) 10 ml 1X PRN PRN 08/29/18 06:30 08/30/18 06:29 Results All relevant outside records, renal labs, imaging studies, telemetry/EKG's were reviewed. MARIA ALEJANDRA PETTIT MD Aug 29, 2018 11:59
--- NOTE | 2018-08-29 13:59 | RAD ---
Video dysphasia study, 08/29/2018: History: Dysphasia The swallowing mechanism was examined fluoroscopically in the lateral projection with the patient just a variety of food materials mixed with barium. 3.0 minutes of fluoroscopy time was utilized. One video fluoroscopic loop was recorded by a member of the speech Department. When ingesting the thin liquids there was intermittent laryngeal penetration down to the level of the vocal cords. This also occurred with the nectar consistency material. When the honey thickened material was utilized the laryngeal penetration abated. No marita aspiration was observed. The patient ingested the thicker materials and barium coated solids without difficulty. IMPRESSION: Intermittent deep laryngeal penetration of the thin liquids which abated when the thicker materials were utilized.
--- NOTE | 2018-08-29 14:18 | PDOC ---
PULMONARY PROGRESS NOTES Subjective no soa dysphagia persist Vitals Vital Signs Date Time Temp Pulse Resp B/P (MAP) Pulse Ox O2 Delivery O2 Flow Rate FiO2 08/29/18 12:33 76 183/80 08/29/18 12:16 96 Nasal Cannula 2.0 08/29/18 11:00 98.6 22 98.6 ROS: No Nausea, No Chest Pain, No Abdominal Pain, No Increase Cough General: Alert, No acute distress Lungs: Other (decrease bs) Cardiovascular: S1, S2 Abdomen: Soft Neuro Exam: Alert Extremities: No Edema Skin: Warm Labs Laboratory Tests Test 08/27/18 16:46 08/27/18 21:29 08/28/18 07:50 08/28/18 07:53 Glucose (Fingerstick) 97 mg/dL (70-99) 93 mg/dL (70-99) 76 mg/dL (70-99) White Blood Count 5.9 x10^3/uL (4.0-11.0) Red Blood Count 3.26 x10^6/uL (3.50-5.40) Hemoglobin 9.7 g/dL (12.0-15.5) Hematocrit 30.0 % (36.0-47.0) Mean Corpuscular Volume 92 fL (79-100) Mean Corpuscular Hemoglobin 30 pg (25-35) Mean Corpuscular Hemoglobin Concent 32 g/dL (31-37) Red Cell Distribution Width 15.3 % (11.5-14.5) Platelet Count 168 x10^3/uL (140-400) Sodium Level 150 mmol/L (136-145) Potassium Level 3.9 mmol/L (3.5-5.1) Chloride Level 115 mmol/L (98-107) Carbon Dioxide Level 19 mmol/L (21-32) Anion Gap 16 (6-14) Blood Urea Nitrogen 46 mg/dL (7-20) Creatinine 3.7 mg/dL (0.6-1.0) Estimated GFR (Cockcroft-Gault) 12.2 Glucose Level 97 mg/dL (70-99) Calcium Level 9.4 mg/dL (8.5-10.1) Hepatitis B Surface Antigen Nonreactive (Nonreactive) Hepatitis B Surface Antibody Nonreactive Test 08/28/18 10:46 08/29/18 12:10 Glucose (Fingerstick) 102 mg/dL (70-99) 58 mg/dL (70-99) Laboratory Tests Test 08/29/18 12:10 Glucose (Fingerstick) 58 mg/dL (70-99) Medications Active Scripts Medications Dose Route/Sig Max Daily Dose Days Date Category Hydralazine Hcl 100 Mg Tablet 1 Tab PO TID 08/25/18 Reported Mucinex (Guaifenesin) 600 Mg Tablet.er 1 Tab PO BID 08/25/18 Reported Amlodipine Besylate 10 Mg Tablet 10 Mg PO DAILY 08/25/18 Reported Zoloft (Sertraline Hcl) 50 Mg Tablet 1 Tab PO DAILY 08/25/18 Reported Nystatin 15 Gm Powder 1 Betzy TP BID 08/25/18 Reported Lorazepam 0.5 Mg Tablet 1 Tab PO TID PRN PRN 08/25/18 Reported Culturelle (Lactobacillus Rhamnosus Gg) 1 Each Cap.sprink 1 Each PO BID 08/25/18 Reported Isosorbide Mononitrate Er (Isosorbide Mononitrate) 30 Mg Tab.er.24h 1 Tab PO DAILY 08/25/18 Reported Duoneb 0.5-3(2.5) Mg/3 Ml (Albuterol/Ipratropium) 3 Ml Ampul.neb 3 Ml NEB QID 08/25/18 Reported Coreg (Carvedilol) 3.125 Mg Tablet 3.125 Mg PO BIDWMEALS 08/25/18 Reported Zithromax (Azithromycin) 500 Mg Tablet 1 Tab PO DAILY 08/25/18 Reported Atorvastatin Calcium 10 Mg Tablet 10 Mg PO HS 08/25/18 Reported Albuterol Sulfate Neb Soln (Albuterol Sulfate) 2.5 Mg/3 Ml Vial.neb 1 Vial NEB PRN Q4HRS 08/25/18 Reported Levemir (Insulin Detemir) 100 Unit/1 Ml Vial 26 Unit SQ HS 07/20/16 Reported Novolog (Insulin Aspart) 100 Unit/1 Ml Cartridge 10 Unit SQ TIDAC 07/20/16 Reported Plavix (Clopidogrel Bisulfate) 75 Mg Tablet 75 Mg PO DAILY 09/15/15 Reported Comments CXR CHF VIDEO SWALLOW IMPRESSION: Intermittent deep laryngeal penetration of the thin liquids which abated when the thicker materials were utilized. Impression . I 1. Acute hypercapnic/ hypoxemic respiratory failure due to CHF 2. Abnormal x-ray compatible with CHF/ cannot exclude pneumonia 3. Acute on chronic systolic heart failure. EF 30% 4. 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 Type 2 diabetes. 6. Obesity. 7. Hepatitis C, treated 2 years ago. 8. CKD Plan . BIPAP PRN RIGHT HEART CATH CANCELLED HD INITIATED VS WITH DEEP LARYNGEAL PENETRATION WITH THIN LIQUIDS/ OK WITH THICK CONTINUE ANTIBX NON SMOKER/ NEBS MONITOR RENAL FUNCTION REPEAT CXR PRN TD ANDRES MD Aug 29, 2018 14:18
[2018-08-29 15:00] VITALS: BP 188/80
--- NOTE | 2018-08-29 16:08 | NUR ---
SS following up with discharge planning. Discharge orders for [facility] received. SS phoned and faxed discharge orders to [facility], ; fax [phone]. Pt will discharge today and go to [facility] at 1900 via [facility] ambulance, . Pt, pt's spouse, and pt's RN notified.
[2018-08-29 17:30] VITALS: BP 183/80
--- NOTE | 2018-08-29 19:30 | NUR ---
CHANGED PT GOWN, CHANGED HER BRIEF, HAD A BOWEL MOVEMENT. SLAVERED CALAZIME OINTMENT ON BUTTUCKS. CLEANING OF MORROW. HAS PERIPHERIAL IN RIGHT FA AND RIGHT CHEST TEMP DIALYSIS CATH. AND A MORROW IN PLACE. PAPERWORK GIVEN TO EMS.SENT CLOTHES, DENTURES AND HER PURSE LCRN
--- NOTE | 2018-08-29 20:45 | NUR ---
PT LEFT BY EMS TO [facility]. LCRN
--- NOTE | 2018-09-26 19:51 | DS ---
DATE OF DISCHARGE: 08/29/2018 HOSPITAL COURSE: The patient is a 68-year-old female patient who was originally admitted to [facility] with increasing shortness of breath and was found to have community-acquired pneumonia as well as bszhp-ki-izluitc congestive heart failure. She was seen in consultation by the Cardiology team and although multiple adjustments were made to her medication, the patient continued to do poorly and therefore, she was transferred to [facility] and was started on milrinone drip. An echocardiogram showed that her left ventricular systolic function is moderately impaired with an ejection fraction of 30-35% and there is a pacemaker lead in the right atrium and right ventricle. She was seen in consultation by the travograph operator and unfortunately, her kidney function has steadily worsened and eventually decision was made to place a temporary hemodialysis and eventually a permanent tunneled hemodialysis catheter and the patient was transferred to [facility] to continue with hemodialysis, continue with physical and occupational therapy. PHYSICAL EXAMINATION ON DISCHARGE: GENERAL: The patient looked well and was clearly in no apparent respiratory distress. She was pale, but no jaundice, cyanosis or thyromegaly. No jugular venous distention. No lower limb edema. VITAL SIGNS: Her heart rate was 76, blood pressure was 183/80, temperature was 98, respiratory rate was 14, and oxygen saturation was 96% on 2 liters of oxygen. HEAD, EYES, EARS, NOSE AND THROAT: Showed normocephalic, atraumatic. NECK: Supple. HEART: Showed normal first and second sounds. No gallop, rub or murmur. CHEST: Clear to auscultation. No crepitation or rhonchi. ABDOMEN: Distended, soft, nontender. NEUROLOGIC: She is awake, alert, responding appropriately. She has mild dysarthria and residual right-sided hemiparesis. She did actually very well on her video swallowing evaluation and was started on a pureed diet with honey thickened liquid and her procalamine was discontinued. LABORATORY DATA: On the day of discharge showed that her serum sodium was 150, potassium 3.9, chloride was 115, bicarbonate 19, anion gap of 16, BUN 46, creatinine 3.7, estimated GFR was 12 mL per minute and calcium was 9.4. Her white cell count was 5900, hemoglobin 9.7, hematocrit 30, MCV 92, and platelet count of 168. DISCHARGE MEDICATIONS: She was discharged to [facility] to continue on following medications: Continue on DuoNeb 0.5/2.5 mg 3 mL by nebulizer 4 times a day, albuterol sulfate by nebulizer every 4 hours, Plavix 75 mg once a day, atorvastatin calcium 10 mg at bedtime, hydralazine 100 mg 2 times a day, isosorbide mononitrate 30 mg once a day, carvedilol 6.25 mg twice a day, amlodipine 10 mg once a day, Zoloft 50 mg daily and lorazepam 0.5 mg 2 times a day as needed, Lactobacillus rhamnosus 1 capsule twice a day. She was also on NovoLog insulin 10 units before meals and Levemir insulin 26 units at bedtime. Nystatin powder applied topically twice a day. FINAL DISCHARGE DIAGNOSES: 1. Acute hypoxic hypercapnic respiratory failure for which she was on BiPAP machine. She is now on 5 liters of oxygen, maintaining her oxygen saturation at 94%. 2. Bcloy-tc-seqvexj systolic congestive heart failure due to nonischemic cardiomyopathy, status post biventricular implantable cardioverter defibrillator implantation. The device is functioning well. Her most recent echocardiogram showed that her ejection fraction was 35%. 3. Iticg-zl-fzyzqwv kidney injury. Her creatinine was steadily rising and she has had a hemodialysis catheter placed and she is scheduled for hemodialysis. 4. Hypertension is suboptimally controlled. 5. Type 2 diabetes mellitus, seems to be reasonably controlled. 6. Left middle cerebral artery territory infarct with right-sided hemiplegia, aphasia and dysphagia. 7. Severe protein-calorie malnutrition with serum albumin only 2.5 g/dL. 8. Normochromic normocytic anemia. RICK LUGO MD DR: MITZY/ishmael JOB#: [id number] / [id number]
== END 2018-08-29 20:45 | DRG 871 ==
LOC: 2 NORTH 19:58
PROVIDERS: ADMIT Internal Medicine; ATTEND Internal Medicine
PROC: 5A09357 Assistance with Respiratory Ventilation, Less than 24 Consecutive Hours, Continuous Positive Airway Pressure (ICD-10-PCS; 2018-08-24)
PROC: 5A09457 Assistance with Respiratory Ventilation, 24-96 Consecutive Hours, Continuous Positive Airway Pressure (ICD-10-PCS; 2018-08-25)
PROC: 02HV33Z Insertion of Infusion Device into Superior Vena Cava, Percutaneous Approach (ICD-10-PCS; principal; 2018-08-28)
PROC: B548ZZA Ultrasonography of Superior Vena Cava, Guidance (ICD-10-PCS; 2018-08-28)
PROC: B5181ZA Fluoroscopy of Superior Vena Cava using Low Osmolar Contrast, Guidance (ICD-10-PCS; 2018-08-28)
DX: A41.9 Sepsis, unspecified organism (principal); I50.23 Acute on chronic systolic (congestive) heart failure; J18.9 Pneumonia, unspecified organism; J96.01 Acute respiratory failure with hypoxia; J96.02 Acute respiratory failure with hypercapnia; E43 Unspecified severe protein-calorie malnutrition; N17.0 Acute kidney failure with tubular necrosis; I13.0 Hypertensive heart and chronic kidney disease with heart failure and stage 1 through stage 4 chronic kidney disease, or unspecified chronic kidney disease; I42.9 Cardiomyopathy, unspecified; I47.2 Ventricular tachycardia; N18.4 Chronic kidney disease, stage 4 (severe); I69.851 Hemiplegia and hemiparesis following other cerebrovascular disease affecting right dominant side; D63.1 Anemia in chronic kidney disease; E11.22 Type 2 diabetes mellitus with diabetic chronic kidney disease; E61.1 Iron deficiency; E66.9 Obesity, unspecified; E78.5 Hyperlipidemia, unspecified; I69.320 Aphasia following cerebral infarction; M15.9 Polyosteoarthritis, unspecified; R13.10 Dysphagia, unspecified; Z80.3 Family history of malignant neoplasm of breast; Z82.49 Family history of ischemic heart disease and other diseases of the circulatory system; Z82.5 Family history of asthma and other chronic lower respiratory diseases; Z90.710 Acquired absence of both cervix and uterus; Z95.0 Presence of cardiac pacemaker; Z95.810 Presence of automatic (implantable) cardiac defibrillator; Z98.41 Cataract extraction status, right eye; Z98.42 Cataract extraction status, left eye; Z88.8 Allergy status to other drugs, medicaments and biological substances; Z68.30 Body mass index [BMI] 30.0-30.9, adult; I69.891 Dysphagia following other cerebrovascular disease
CPT/HCPCS: 36415; 36556; 36600; 71045; 74230; 76937; 77001; 80048; 80053; 82805; 82962; 83540; 83550; 83880; 85025; 85027; 86706; 87340; 94640; 94660; 94760; C1750; C1769; C1892; J0360; J0696; J0881; J1644; J1756; J1940; J2060; J2260; J2405; J2543; J3010; J3490; J7042; J7050; J7613; J7620; Q0144; 92526; 92610; 92611; 97110; 97530; 97535; J7030

== ENCOUNTER 2018-10-12 18:55 | Inpatient (IN) | payer MEDICARE ==
[~2018-10-12] VITALS: Ht 157.5 cm; Wt 62.6 kg
[~2018-10-12 18:55] MED LIST changes: +ALBU2.5V5 NEB; +ATOR10TA60 PO; +AZIT500T PO; +CARV3.12 PO; +GUAI600T47 PO; +IPRA3AMP29 NEB; +LACT1CAP19 PO; +LORA0.5T PO; +NYST15PO9 TP; +SERT50TA PO
--- NOTE | 2018-10-12 20:32 | RAD ---
Examination: CT head and cervical spine without contrast CT HEAD INDICATION: Slurred speech COMPARISON: 07/05/2017 Exposure: One or more of the following individualized dose reduction techniques were utilized for this examination: 1. Automated exposure control 2. Adjustment of the mA and/or kV according to patient size 3. Use of iterative reconstruction technique TECHNIQUE: 5 mm contiguous axial images were obtained from the skull base to the vertex in both bone and soft tissue algorithm. FINDINGS: Mild bilateral periventricular white matter hypodensities likely chronic small vessel ischemic disease. There is moderate size hypodensity identified in the right cerebellum which was not seen on prior exam of 2018 could be subacute or chronic infarct. No evidence of acute intracranial hemorrhage. No extra-axial fluid collections. No midline shift. Ventricular size is appropriate. Basal cisterns are patent. No fractures identified..Globes and orbits are within normal limits. Paranasal sinuses and mastoid air cells are clear. CT CERVICAL SPINE COMPARISON: None Available. Technique: 2.5 mm contiguous axial images were obtained from the skull base through the cervicothoracic junction in both bone and soft tissue algorithm. Additional sagittal and coronal reconstructions were also performed. FINDINGS: Vertebral body height and alignment are maintained. Cervical lordosis is preserved. The lateral masses of C1 are aligned upon C2. No fractures identified. The bony canal is patent throughout. Moderate intervertebral disc height loss identified in cervical spine most at C5-C6, C6-C7 vertebral levels with the bilateral facets are well aligned The paraspinous soft tissues are unremarkable. Visualized intracranial contents are unremarkable. Lung apices are clear. IMPRESSION: 1. Moderate size hypodensity identified in the right cerebellum is new since 2018 could be subacute or chronic infarct. Correlate clinically. Follow-up MRI can be considered. 2. No acute fracture of the cervical spine. Correlate clinically. 3. Multilevel moderate degenerative changes cervical spine. Electronically signed by: Tawanda Carroll MD (10/12/2018 8:28 PM) [facility]
[2018-10-12 20:33] LABS: BASO # 0.1 x10^3/uL (0.0-0.2); BASO % 1 % (0-3); EOS # 0.2 x10^3/uL (0.0-0.7); EOS % 2 % (0-3); HEMATOCRIT 43.7 % (36.0-47.0); HEMOGLOBIN 14.8 g/dL (12.0-15.5); LYMPH # 0.9 x10^3/uL (1.0-4.8); LYMPH % 9 % (24-48); MEAN CORPUSCULAR HEMOGLOBIN 32 pg (25-35); MEAN CORPUSCULAR HGB CONC 34 g/dL (31-37); MEAN CORPUSCULAR VOLUME 95 fL (79-100); MONO # 0.7 x10^3/uL (0.0-1.1); MONO % 8 % (0-9); NEUT # 7.8 x10^3uL (1.8-7.7); NEUT % 81 % (31-73); PLATELET COUNT 145 x10^3/uL (140-400); RED BLOOD COUNT 4.61 x10^6/uL (3.50-5.40); RED CELL DISTRIBUTION WIDTH 17.3 % (11.5-14.5); WHITE BLOOD COUNT 9.7 x10^3/uL (4.0-11.0)
[2018-10-12 20:50] LABS: CLARITY,URINE CLOUDY; COLOR,URINE RED; NITRITE,URINE NEGATIVE (NEG); PROTEIN,URINE >=300 mg/dL (NEG-TRACE); UROBILINOGEN,URINE 0.2 mg/dL (0.2 mg/dL)
[2018-10-12 20:58] LABS: BILIRUBIN,URINE NEGATIVE (NEG)
[2018-10-12 21:08] LABS: BACTERIA,URINE MANY /HPF (0-FEW); RBC,URINE OCC /HPF (0-2); SQUAMOUS EPITHELIAL CELL,UR MANY /LPF
[2018-10-12 21:23] LABS: CALCIUM 9.2 mg/dL (8.5-10.1); CREATININE 2.1 mg/dL (0.6-1.0); GFR 23.4; POTASSIUM 3.9 mmol/L (3.5-5.1)
[2018-10-12 21:29] LABS: ALBUMIN 3.1 g/dL (3.4-5.0); MAGNESIUM 1.8 mg/dL (1.8-2.4); TOTAL BILIRUBIN 5.2 mg/dL (0.2-1.0); TOTAL PROTEIN 6.1 g/dL (6.4-8.2)
[2018-10-12 21:37] LABS: CREATINE KINASE 53 U/L (26-192)
[2018-10-12] MEDS ORDERED: ASPIRIN 325 MG TABLET PO ONE (22:30)
--- NOTE | 2018-10-12 22:31 | PHYS DOC ---
Past Medical History Past Medical History: CHF, CVA, Diabetes-Type II, Diverticulitis, High Cholesterol, Hypertension, TIA, Other Additional Past Medical Histor: Rt hemiparesis, slurred speech from CVA Past Surgical History: Appendectomy, Cholecystectomy, Hysterectomy, Pacemaker, Other Additional Past Surgical Histo: exp lap, diverticulits surgery Alcohol Use: None Drug Use: None Adult General Chief Complaint Chief Complaint: OTHER COMPLAINTS HPI HPI Patient is a 68 year old [f__sex] who presents with [] Review of Systems Review of Systems Constitutional: Denies fever or chills [] Eyes: Denies change in visual acuity, redness, or eye pain [] HENT: Denies nasal congestion or sore throat [] Respiratory: Denies cough or shortness of breath [] Cardiovascular: No additional information not addressed in HPI [] GI: Denies abdominal pain, nausea, vomiting, bloody stools or diarrhea [] : Denies dysuria or hematuria [] Musculoskeletal: Denies back pain or joint pain [] Integument: Denies rash or skin lesions [] Neurologic: Denies headache, focal weakness or sensory changes [] Endocrine: Denies polyuria or polydipsia [] All other systems were reviewed and found to be within normal limits, except as documented in this note. Allergies Allergies Allergies Coded Allergies Type Severity Reaction Last Updated Verified morphine Allergy Intermediate SWELLING 12/24/17 Yes codeine Adverse Reaction Intermediate 12/24/17 Yes promethazine Adverse Reaction Intermediate CONFUSION 12/24/17 Yes Physical Exam Physical Exam Constitutional: Well developed, well nourished, no acute distress, non-toxic appearance. [] HENT: Normocephalic, atraumatic, bilateral external ears normal, oropharynx moist, no oral exudates, nose normal. [] Eyes: PERRLA, EOMI, conjunctiva normal, no discharge. [] Neck: Normal range of motion, no tenderness, supple, no stridor. [] Cardiovascular:Heart rate regular rhythm, no murmur [] Lungs & Thorax: Bilateral breath sounds clear to auscultation [] Abdomen: Bowel sounds normal, soft, no tenderness, no masses, no pulsatile m asses. [] Skin: Warm, dry, no erythema, no rash. [] Back: No tenderness, no CVA tenderness. [] Extremities: No tenderness, no cyanosis, no clubbing, ROM intact, no edema. [] Neurologic: Alert and oriented X 3, normal motor function, normal sensory function, no focal deficits noted. [] Psychologic: Affect normal, judgement normal, mood normal. [] Current Patient Data Vital Signs Vital Signs Date Time Temp Pulse Resp B/P (MAP) Pulse Ox O2 Delivery O2 Flow Rate FiO2 10/12/18 21:00 64 17 156/80 (105) 96 Room Air 10/12/18 19:58 97.8 97.8 Lab Values Laboratory Tests Test 10/12/18 20:20 10/12/18 20:35 10/12/18 21:00 White Blood Count 9.7 x10^3/uL (4.0-11.0) Red Blood Count 4.61 x10^6/uL (3.50-5.40) Hemoglobin 14.8 g/dL (12.0-15.5) Hematocrit 43.7 % (36.0-47.0) Mean Corpuscular Volume 95 fL (79-100) Mean Corpuscular Hemoglobin 32 pg (25-35) Mean Corpuscular Hemoglobin Concent 34 g/dL (31-37) Red Cell Distribution Width 17.3 % (11.5-14.5) H Platelet Count 145 x10^3/uL (140-400) Neutrophils (%) (Auto) 81 % (31-73) H Lymphocytes (%) (Auto) 9 % (24-48) L Monocytes (%) (Auto) 8 % (0-9) Eosinophils (%) (Auto) 2 % (0-3) Basophils (%) (Auto) 1 % (0-3) Neutrophils # (Auto) 7.8 x10^3uL (1.8-7.7) H Lymphocytes # (Auto) 0.9 x10^3/uL (1.0-4.8) L Monocytes # (Auto) 0.7 x10^3/uL (0.0-1.1) Eosinophils # (Auto) 0.2 x10^3/uL (0.0-0.7) Basophils # (Auto) 0.1 x10^3/uL (0.0-0.2) Urine Collection Type Unknown Urine Color Red Urine Clarity Cloudy Urine pH 8.0 Urine Specific [place] 1.010 Urine Protein >=300 mg/dL (NEG-TRACE) Urine Glucose (UA) Negative mg/dL (NEG) Urine Ketones (Stick) Negative mg/dL (NEG) Urine Blood Large (NEG) Urine Nitrite Negative (NEG) Urine Bilirubin Negative (NEG) Urine Urobilinogen Dipstick 0.2 mg/dL (0.2 mg/dL) Urine Leukocyte Esterase Small (NEG) Urine RBC Occ /HPF (0-2) Urine WBC 11-20 /HPF (0-4) Urine Squamous Epithelial Cells Many /LPF Urine Bacteria Many /HPF (0-FEW) Urine Mucus Mod /LPF Sodium Level 138 mmol/L (136-145) Potassium Level 3.9 mmol/L (3.5-5.1) Chloride Level 102 mmol/L (98-107) Carbon Dioxide Level 26 mmol/L (21-32) Anion Gap 10 (6-14) Blood Urea Nitrogen 18 mg/dL (7-20) Creatinine 2.1 mg/dL (0.6-1.0) H Estimated GFR (Cockcroft-Gault) 23.4 BUN/Creatinine Ratio 9 (6-20) Glucose Level 180 mg/dL (70-99) H Lactic Acid Level 1.3 mmol/L (0.4-2.0) Calcium Level 9.2 mg/dL (8.5-10.1) Magnesium Level 1.8 mg/dL (1.8-2.4) Total Bilirubin 5.2 mg/dL (0.2-1.0) H Aspartate Amino Transferase (AST) 336 U/L (15-37) H Alanine Aminotransferase (ALT) 98 U/L (14-59) H Alkaline Phosphatase 383 U/L (46-116) H Creatine Kinase 53 U/L (26-192) Creatine Kinase MB (Mass) 0.9 ng/mL (0.0-3.6) Creatine Kinase MB Relative Index % (0-4) Troponin I Quantitative 0.064 ng/mL (0.000-0.055) Total Protein 6.1 g/dL (6.4-8.2) L Albumin 3.1 g/dL (3.4-5.0) L Albumin/Globulin Ratio 1.0 (1.0-1.7) Lipase 3436 U/L (73-393) H Laboratory Tests 10/12/18 20:20 Laboratory Tests 10/12/18 21:00 EKG EKG @2010 Paced rhythm at 65bpm, occasional PVC Radiology/Procedures Radiology/Procedures [] Course & Med Decision Making Course & Med Decision Making Pertinent Labs and Imaging studies reviewed. (See chart for details) [] Dragon Disclaimer Dragon Disclaimer This electronic medical record was generated, in whole or in part, using a voice recognition dictation system. Departure Departure Impression: Primary Impression: Acute pancreatitis Additional Impressions: ESRD (end stage renal disease) on dialysis Elevated troponin Disposition: ADMITTED INPATIENT Admitting Physician: Deangelo Shaw Condition: GUARDED Referrals: LUI LUNDBERG (PCP) Critical Care Time Critical care time was 30 minutes which includes time at bedside, spent in discussion of patient's care with specialists and/or family members, with interpretation of laboratory and/or radiological studies and is exclusive of procedures. Problem Qualifiers Primary Impression: Acute pancreatitis Pancreatitis type: unspecified pancreatitis type Acute pancreatitis complication: unspecified Qualified Codes: K85.90 - Acute pancreatitis without necrosis or infection, unspecified BINDU ANTUNEZ DO October 12, 2018 22:31
[2018-10-12] MEDS ORDERED: ONDANSETRON PF 4 MG/2 ML VIAL. IV PRN (22:45)
[2018-10-12] MEDS ORDERED: DEXTROSE 50% 25 GM / 50ML DISP.SYRIN. IV PRN (22:45)
[2018-10-12] MEDS ORDERED: fentaNYL PF VIAL 100 MCG/2 ML VIAL IV PRN (22:45)
[2018-10-12 23:45] VITALS: BP 157/84
[2018-10-13] MEDS ORDERED: B CO1TAB30 PO (02:01)
[2018-10-13] MEDS ORDERED: FERR325T14 PO (02:04)
[2018-10-13] MEDS ORDERED: FLUT9.9S NS (02:04)
[2018-10-13 02:58] VITALS: BP 147/67
--- NOTE | 2018-10-13 03:10 | RAD ---
AP chest. HISTORY: Weakness AP view was taken of the chest. Heart is normal in size. There is no pleural effusion. There is a dialysis catheter on the right good position. There is a left pacemaker with 3 pacing leads without change. There are no confluent infiltrates. IMPRESSION: 1. Dialysis catheter in good position. 2. No acute infiltrates. Electronically signed by: Rodney Morales MD (10/13/2018 3:07 AM) [id number]
[2018-10-13 07:05] VITALS: BP 115/54
[2018-10-13] MEDS: INSULIN LISPRO 300 UNITS/3 ML INSULN.PEN. SQ SCH ×3 (08:00→17:00)
--- NOTE | 2018-10-13 09:06 | PDOC2 ---
CONSULT Date of Consult Date of Consult DATE: 10/13/18 TIME: 09:06 Reason for Consult Reason for Consult: Slightly elevated troponin level Referring Physician Referring Physician: Dr. 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 Cardiology has been consulted secondary to slightly elevated troponin level. She denied any chest pain as such. She also denied any orthopnea/PND, palpitations or syncope. Past Medical History Cardiovascular: CHF, HTN, Other Pulmonary: No pertinent hx CENTRAL NERVOUS SYSTEM: TIA GI: No pertinent hx Heme/Onc: No pertinent hx Hepatobiliary: No pertinent hx Psych: No pertinent hx Musculoskeletal: Osteoarthritis Rheumatologic: No pertinent hx Infectious disease: No pertinent hx Renal/: Chronic renal insuff Endocrine: Diabetes Past Surgical History Past Surgical History: Pacemaker, Appendectomy, Cholecystectomy, Hysterectomy, Other Family History Family History: Diabetes Social History ALCOHOL: none Drugs: None Lives: with Family Current Problem List Problem List Problems Medical Problems: (1) Acute pancreatitis Status: Acute (2) Elevated troponin Status: Acute (3) ESRD (end stage renal disease) on dialysis Status: Acute Current Medications Current Medications Current Medications Aspirin (Rose Aspirin) 325 mg 1X ONCE PO Last administered on 10/12/18at 23:19; Start 10/12/18 at 22:30; Stop 10/12/18 at 22:31; Status DC Ondansetron HCl (Zofran) 4 mg PRN Q8HRS PRN IV NAUSEA/VOMITING Last administere d on 10/12/18at 23:19; Start 10/12/18 at 22:45; Stop 10/13/18 at 22:44 Fentanyl Citrate (Fentanyl 2ml Vial) 50 mcg PRN Q2HR PRN IV PAIN; Start 10/12/18 at 22:45 Insulin Human Lispro (HumaLOG) 0-5 UNITS TIDWMEALS SQ ; Start 10/13/18 at 08:00 Dextrose (Dextrose 50%-Water Syringe) 12.5 gm PRN Q15MIN PRN IV SEE COMMENTS; Start 10/12/18 at 22:45 Active Scripts Active Reported Flonase Allergy Relief (Fluticasone Propionate) 9.9 Ml [place].susp 2 Sprays NS DAILY Ferrous Sulfate 325 Mg Tablet 1 Tab PO TID B-Complex with C (B Complex with Vitamin C) 1 Each Tablet 1 Each PO DAILY Hydralazine Hcl 100 Mg Tablet 1 Tab PO TID Mucinex (Guaifenesin) 600 Mg Tablet.er 1 Tab PO BID Amlodipine Besylate 10 Mg Tablet 10 Mg PO DAILY Zoloft (Sertraline Hcl) 50 Mg Tablet 1 Tab PO DAILY Nystatin 15 Gm Powder 1 Betzy TP BID Lorazepam 0.5 Mg Tablet 1 Tab PO TID PRN PRN Culturelle (Lactobacillus Rhamnosus Gg) 1 Each Cap.sprink 1 Each PO BID Isosorbide Mononitrate Er (Isosorbide Mononitrate) 30 Mg Tab.er.24h 1 Tab PO DAILY Duoneb 0.5-3(2.5) Mg/3 Ml (Albuterol/Ipratropium) 3 Ml Ampul.neb 3 Ml NEB QID Coreg (Carvedilol) 3.125 Mg Tablet 6.25 Mg PO BIDWMEALS Atorvastatin Calcium 10 Mg Tablet 10 Mg PO HS Albuterol Sulfate Neb Soln (Albuterol Sulfate) 2.5 Mg/3 Ml Vial.neb 1 Vial NEB PRN Q4HRS Levemir (Insulin Detemir) 100 Unit/1 Ml Vial 26 Unit SQ HS Novolog (Insulin Aspart) 100 Unit/1 Ml Cartridge 10 Unit SQ TIDAC Plavix (Clopidogrel Bisulfate) 75 Mg Tablet 75 Mg PO DAILY Allergies Allergies: Coded Allergies: morphine (Verified Allergy, Intermediate, SWELLING, 12/24/17) codeine (Verified Adverse Reaction, Intermediate, 12/24/17) STOMACH PAIN promethazine (Verified Adverse Reaction, Intermediate, CONFUSION, 12/24/17) ROS General: YES: Fatigue, Malaise PSYCHOLOGICAL ROS: No: Hallucinations Eyes: No Loss of vision HEENT: No: Epistaxis Respiratory: No: Hemoptysis, Shortness of breath Cardiovascular: No Chest Pain, No Palpitations Gastrointestinal: Yes Nausea, Yes Abdominal Pain Genitourinary: No Hematuria Neurological: No Seizures Skin: No Rash Physical Exam General: Alert, Oriented X3 HEENT: Atraumatic, PERRLA Lungs: Clear to auscultation Heart: Regular rate Abdomen: Other (mild diffuse tenderness) Extremities: No edema Psych/Mental Status: Mood NL Vitals VITALS Vital Signs Date Time Temp Pulse Resp B/P (MAP) Pulse Ox O2 Delivery O2 Flow Rate FiO2 10/13/18 07:05 98.2 63 18 115/54 (74) 95 Room Air 98.2 Labs Labs Laboratory Tests Test 10/12/18 20:20 10/12/18 20:35 10/12/18 21:00 10/13/18 01:05 White Blood Count 9.7 x10^3/uL (4.0-11.0) Red Blood Count 4.61 x10^6/uL (3.50-5.40) Hemoglobin 14.8 g/dL (12.0-15.5) Hematocrit 43.7 % (36.0-47.0) Mean Corpuscular Volume 95 fL (79-100) Mean Corpuscular Hemoglobin 32 pg (25-35) Mean Corpuscular Hemoglobin Concent 34 g/dL (31-37) Red Cell Distribution Width 17.3 % (11.5-14.5) Platelet Count 145 x10^3/uL (140-400) Neutrophils (%) (Auto) 81 % (31-73) Lymphocytes (%) (Auto) 9 % (24-48) Monocytes (%) (Auto) 8 % (0-9) Eosinophils (%) (Auto) 2 % (0-3) Basophils (%) (Auto) 1 % (0-3) Neutrophils # (Auto) 7.8 x10^3uL (1.8-7.7) Lymphocytes # (Auto) 0.9 x10^3/uL (1.0-4.8) Monocytes # (Auto) 0.7 x10^3/uL (0.0-1.1) Eosinophils # (Auto) 0.2 x10^3/uL (0.0-0.7) Basophils # (Auto) 0.1 x10^3/uL (0.0-0.2) Urine Collection Type Unknown Urine Color Red Urine Clarity Cloudy Urine pH 8.0 Urine Specific [place] 1.010 Urine Protein >=300 mg/dL (NEG-TRACE) Urine Glucose (UA) Negative mg/dL (NEG) Urine Ketones (Stick) Negative mg/dL (NEG) Urine Blood Large (NEG) Urine Nitrite Negative (NEG) Urine Bilirubin Negative (NEG) Urine Urobilinogen Dipstick 0.2 mg/dL (0.2 mg/dL) Urine Leukocyte Esterase Small (NEG) Urine RBC Occ /HPF (0-2) Urine WBC 11-20 /HPF (0-4) Urine Squamous Epithelial Cells Many /LPF Urine Bacteria Many /HPF (0-FEW) Urine Mucus Mod /LPF Sodium Level 138 mmol/L (136-145) Potassium Level 3.9 mmol/L (3.5-5.1) Chloride Level 102 mmol/L (98-107) Carbon Dioxide Level 26 mmol/L (21-32) Anion Gap 10 (6-14) Blood Urea Nitrogen 18 mg/dL (7-20) Creatinine 2.1 mg/dL (0.6-1.0) Estimated GFR (Cockcroft-Gault) 23.4 BUN/Creatinine Ratio 9 (6-20) Glucose Level 180 mg/dL (70-99) Lactic Acid Level 1.3 mmol/L (0.4-2.0) Calcium Level 9.2 mg/dL (8.5-10.1) Magnesium Level 1.8 mg/dL (1.8-2.4) Total Bilirubin 5.2 mg/dL (0.2-1.0) Aspartate Amino Transf (AST/SGOT) 336 U/L (15-37) Alanine Aminotransferase (ALT/SGPT) 98 U/L (14-59) Alkaline Phosphatase 383 U/L (46-116) Creatine Kinase 53 U/L (26-192) Creatine Kinase MB (Mass) 0.9 ng/mL (0.0-3.6) Creatine Kinase MB Relative Index % (0-4) Troponin I Quantitative 0.064 ng/mL (0.000-0.055) 0.088 ng/mL (0.000-0.055) Total Protein 6.1 g/dL (6.4-8.2) Albumin 3.1 g/dL (3.4-5.0) Albumin/Globulin Ratio 1.0 (1.0-1.7) Lipase 3436 U/L (73-393) Test 10/13/18 03:30 10/13/18 07:14 Troponin I Quantitative 0.083 ng/mL (0.000-0.055) Glucose (Fingerstick) 102 mg/dL (70-99) Laboratory Tests Test 10/12/18 20:20 10/12/18 20:35 10/12/18 21:00 10/13/18 01:05 White Blood Count 9.7 x10^3/uL (4.0-11.0) Red Blood Count 4.61 x10^6/uL (3.50-5.40) Hemoglobin 14.8 g/dL (12.0-15.5) Hematocrit 43.7 % (36.0-47.0) Mean Corpuscular Volume 95 fL (79-100) Mean Corpuscular Hemoglobin 32 pg (25-35) Mean Corpuscular Hemoglobin Concent 34 g/dL (31-37) Red Cell Distribution Width 17.3 % (11.5-14.5) Platelet Count 145 x10^3/uL (140-400) Neutrophils (%) (Auto) 81 % (31-73) Lymphocytes (%) (Auto) 9 % (24-48) Monocytes (%) (Auto) 8 % (0-9) Eosinophils (%) (Auto) 2 % (0-3) Basophils (%) (Auto) 1 % (0-3) Neutrophils # (Auto) 7.8 x10^3uL (1.8-7.7) Lymphocytes # (Auto) 0.9 x10^3/uL (1.0-4.8) Monocytes # (Auto) 0.7 x10^3/uL (0.0-1.1) Eosinophils # (Auto) 0.2 x10^3/uL (0.0-0.7) Basophils # (Auto) 0.1 x10^3/uL (0.0-0.2) Urine Collection Type Unknown Urine Color Red Urine Clarity Cloudy Urine pH 8.0 Urine Specific [place] 1.010 Urine Protein >=300 mg/dL (NEG-TRACE) Urine Glucose (UA) Negative mg/dL (NEG) Urine Ketones (Stick) Negative mg/dL (NEG) Urine Blood Large (NEG) Urine Nitrite Negative (NEG) Urine Bilirubin Negative (NEG) Urine Urobilinogen Dipstick 0.2 mg/dL (0.2 mg/dL) Urine Leukocyte Esterase Small (NEG) Urine RBC Occ /HPF (0-2) Urine WBC 11-20 /HPF (0-4) Urine Squamous Epithelial Cells Many /LPF Urine Bacteria Many /HPF (0-FEW) Urine Mucus Mod /LPF Sodium Level 138 mmol/L (136-145) Potassium Level 3.9 mmol/L (3.5-5.1) Chloride Level 102 mmol/L (98-107) Carbon Dioxide Level 26 mmol/L (21-32) Anion Gap 10 (6-14) Blood Urea Nitrogen 18 mg/dL (7-20) Creatinine 2.1 mg/dL (0.6-1.0) Estimated GFR (Cockcroft-Gault) 23.4 BUN/Creatinine Ratio 9 (6-20) Glucose Level 180 mg/dL (70-99) Lactic Acid Level 1.3 mmol/L (0.4-2.0) Calcium Level 9.2 mg/dL (8.5-10.1) Magnesium Level 1.8 mg/dL (1.8-2.4) Total Bilirubin 5.2 mg/dL (0.2-1.0) Aspartate Amino Transf (AST/SGOT) 336 U/L (15-37) Alanine Aminotransferase (ALT/SGPT) 98 U/L (14-59) Alkaline Phosphatase 383 U/L (46-116) Creatine Kinase 53 U/L (26-192) Creatine Kinase MB (Mass) 0.9 ng/mL (0.0-3.6) Creatine Kinase MB Relative Index % (0-4) Troponin I Quantitative 0.064 ng/mL (0.000-0.055) 0.088 ng/mL (0.000-0.055) Total Protein 6.1 g/dL (6.4-8.2) Albumin 3.1 g/dL (3.4-5.0) Albumin/Globulin Ratio 1.0 (1.0-1.7) Lipase 3436 U/L (73-393) Test 10/13/18 03:30 10/13/18 07:14 Troponin I Quantitative 0.083 ng/mL (0.000-0.055) Glucose (Fingerstick) 102 mg/dL (70-99) Assessment/Plan Assessment/Plan 1. Acute pancreatitis: Treat per gastroenterology team 2. Chronic systolic heart failure, LVEF 40% on recent 2-D echo from August 2018, clinically well compensated. Continue current medical regimen. 3. Slightly elevated troponin level most probably demand ischemia. Doubt ACS. No further cardiac workup is indicated at this time. 4. NICM s/p Bi-V ICD/DIGITAL ASSOCIATE MEDIA DIRECTOR-D; recent device check showed normal function. 5. Hypertension: Controlled 6. ESRD: Hemodialysis per nephrology team 7. DM2/HLP: Per IM Thank you for your consultation ИВАН ARTHUR MD October 13, 2018 09:06
--- NOTE | 2018-10-13 11:00 | EKG ---
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
[2018-10-13 11:08] VITALS: BP 145/89
--- NOTE | 2018-10-13 13:30 | PDOC1 ---
History and Physical Date of Admission Date of Admission 10/13/2018 Identification/Chief Complaint Chief Complaint Was not feeling good Source Source: Chart review, Patient History of Present Illness History of Present Illness Patient is a [id number] female with past history of end-stage renal disease on hemodialysis who is on a Sunday schedule. Patient was in her usual dialysis therapy when she started complaining of epigastric pain uncontrolled that she describes as a Crampy sensation with no radiation to the back no radiation to the groin patient denies dietary transgressions she denies any sick contacts. The patient denies nausea vomiting or diarrhea. The patient does complain of constipation for about 5 days prior to her visit. Associated with her symptoms was dyspnea on exertion but she denies paroxysmal nocturnal dyspnea nor orthopnea no peripheral edema was reported. The patient has a history off chronic systolic dysfunction with an ejection fraction of 40% on an echo done in August. I Dr. Garcia he has seen the patient in consultation before and we will request a consult. The patient had elevated troponins but most likely this is related to demand ischemia type II non-STEMI. She is asymptomatic denies chest pain no angina-type of symptoms she was evaluated in the emergency department and found to have an acute elevation of lipase and with her symptoms was given the diagnosis of pancreatitis. We will continue with nothing by mouth status at the present time nephrology has been consulted for dialysis management. Past Medical History Cardiovascular: CHF, HTN, Other Pulmonary: No pertinent hx CENTRAL NERVOUS SYSTEM: TIA GI: No pertinent hx Heme/Onc: No pertinent hx Hepatobiliary: No pertinent hx Psych: No pertinent hx Rheumatologic: No pertinent hx Infectious disease: No pertinent hx Renal/: Chronic renal insuff Endocrine: Diabetes Past Surgical History Past Surgical History: Pacemaker, Appendectomy, Cholecystectomy, Hysterectomy, Other Family History Family History: Diabetes Social History ALCOHOL: none Drugs: None Current Problem List Problem List Problems Medical Problems: (1) Acute pancreatitis Status: Acute (2) Elevated troponin Status: Acute (3) ESRD (end stage renal disease) on dialysis Status: Acute Current Medications Current Medications Current Medications Medications (Trade) Dose Ordered Sig/Aleksandra Start Time Stop Time Status Last Admin Dose Admin Aspirin (Rose Aspirin) 325 mg 1X ONCE 10/12/18 22:30 10/12/18 22:31 DC 10/12/18 23:19 325 MG Dextrose (Dextrose 50%-Water Syringe) 12.5 gm PRN Q15MIN PRN 10/12/18 22:45 Fentanyl Citrate (Fentanyl 2ml Vial) 50 mcg PRN Q2HR PRN 10/12/18 22:45 Insulin Human Lispro (HumaLOG) 0-5 UNITS TIDWMEALS 10/13/18 08:00 Ondansetron HCl (Zofran) 4 mg PRN Q8HRS PRN 10/12/18 22:45 10/13/18 22:44 10/12/18 23:19 4 MG Allergies Allergies Allergies Coded Allergies Type Severity Reaction Last Updated Verified morphine Allergy Intermediate SWELLING 12/24/17 Yes codeine Adverse Reaction Intermediate 12/24/17 Yes promethazine Adverse Reaction Intermediate CONFUSION 12/24/17 Yes ROS Review of System CONSTITUTIONAL: No fever or chills EYES: No recent changes SKIN: No rash or itching CARDIOVASCULAR: No chest pain, syncope, palpitations, or edema RESPIRATORY: No SOB or cough GASTROINTESTINAL: No nausea, vomiting or abdominal pain NEUROLOGICAL: No headaches or weakness ENDOCRINE: No cold or heat intolerance GENITOURINARY: No urgency or frequency of urination MUSCULOSKELETAL: No back pain or joint pain LYMPHATICS: No enlarged lymph nodes PSYCHIATRIC: No anxiety or depression Physical Exam Physical Exam GEN.: No apparent distress. Alert and oriented. HEENT: Head is normocephalic, atraumatic NECK: Supple. LUNGS: Clear to auscultation. HEART: RRR, S1, S2 present. Peripheral pulses intact ABDOMEN: Soft, nontender. Positive bowel sounds. EXTREMITIES: Without any cyanosis. NEUROLOGIC: Normal speech, normal tone PSYCHIATRIC: Normal affect, normal mood. SKIN: No ulcerations Vitals Vitals Vital Signs Date Time Temp Pulse Resp B/P (MAP) Pulse Ox O2 Delivery O2 Flow Rate FiO2 10/13/18 11:08 98.9 72 18 145/89 (107) 96 Room Air 98.9 Labs Labs Laboratory Tests Test 10/12/18 20:20 10/12/18 20:35 10/12/18 21:00 10/13/18 01:05 White Blood Count 9.7 x10^3/uL (4.0-11.0) Red Blood Count 4.61 x10^6/uL (3.50-5.40) Hemoglobin 14.8 g/dL (12.0-15.5) Hematocrit 43.7 % (36.0-47.0) Mean Corpuscular Volume 95 fL (79-100) Mean Corpuscular Hemoglobin 32 pg (25-35) Mean Corpuscular Hemoglobin Concent 34 g/dL (31-37) Red Cell Distribution Width 17.3 % (11.5-14.5) Platelet Count 145 x10^3/uL (140-400) Neutrophils (%) (Auto) 81 % (31-73) Lymphocytes (%) (Auto) 9 % (24-48) Monocytes (%) (Auto) 8 % (0-9) Eosinophils (%) (Auto) 2 % (0-3) Basophils (%) (Auto) 1 % (0-3) Neutrophils # (Auto) 7.8 x10^3uL (1.8-7.7) Lymphocytes # (Auto) 0.9 x10^3/uL (1.0-4.8) Monocytes # (Auto) 0.7 x10^3/uL (0.0-1.1) Eosinophils # (Auto) 0.2 x10^3/uL (0.0-0.7) Basophils # (Auto) 0.1 x10^3/uL (0.0-0.2) Urine Collection Type Unknown Urine Color Red Urine Clarity Cloudy Urine pH 8.0 Urine Specific [place] 1.010 Urine Protein >=300 mg/dL (NEG-TRACE) Urine Glucose (UA) Negative mg/dL (NEG) Urine Ketones (Stick) Negative mg/dL (NEG) Urine Blood Large (NEG) Urine Nitrite Negative (NEG) Urine Bilirubin Negative (NEG) Urine Urobilinogen Dipstick 0.2 mg/dL (0.2 mg/dL) Urine Leukocyte Esterase Small (NEG) Urine RBC Occ /HPF (0-2) Urine WBC 11-20 /HPF (0-4) Urine Squamous Epithelial Cells Many /LPF Urine Bacteria Many /HPF (0-FEW) Urine Mucus Mod /LPF Sodium Level 138 mmol/L (136-145) Potassium Level 3.9 mmol/L (3.5-5.1) Chloride Level 102 mmol/L (98-107) Carbon Dioxide Level 26 mmol/L (21-32) Anion Gap 10 (6-14) Blood Urea Nitrogen 18 mg/dL (7-20) Creatinine 2.1 mg/dL (0.6-1.0) Estimated GFR (Cockcroft-Gault) 23.4 BUN/Creatinine Ratio 9 (6-20) Glucose Level 180 mg/dL (70-99) Lactic Acid Level 1.3 mmol/L (0.4-2.0) Calcium Level 9.2 mg/dL (8.5-10.1) Magnesium Level 1.8 mg/dL (1.8-2.4) Total Bilirubin 5.2 mg/dL (0.2-1.0) Aspartate Amino Transf (AST/SGOT) 336 U/L (15-37) Alanine Aminotransferase (ALT/SGPT) 98 U/L (14-59) Alkaline Phosphatase 383 U/L (46-116) Creatine Kinase 53 U/L (26-192) Creatine Kinase MB (Mass) 0.9 ng/mL (0.0-3.6) Creatine Kinase MB Relative Index % (0-4) Troponin I Quantitative 0.064 ng/mL (0.000-0.055) 0.088 ng/mL (0.000-0.055) Total Protein 6.1 g/dL (6.4-8.2) Albumin 3.1 g/dL (3.4-5.0) Albumin/Globulin Ratio 1.0 (1.0-1.7) Lipase 3436 U/L (73-393) Test 10/13/18 03:30 10/13/18 07:14 10/13/18 11:23 Troponin I Quantitative 0.083 ng/mL (0.000-0.055) Glucose (Fingerstick) 102 mg/dL (70-99) 109 mg/dL (70-99) Laboratory Tests Test 10/12/18 20:20 10/12/18 20:35 10/12/18 21:00 10/13/18 01:05 White Blood Count 9.7 x10^3/uL (4.0-11.0) Red Blood Count 4.61 x10^6/uL (3.50-5.40) Hemoglobin 14.8 g/dL (12.0-15.5) Hematocrit 43.7 % (36.0-47.0) Mean Corpuscular Volume 95 fL (79-100) Mean Corpuscular Hemoglobin 32 pg (25-35) Mean Corpuscular Hemoglobin Concent 34 g/dL (31-37) Red Cell Distribution Width 17.3 % (11.5-14.5) Platelet Count 145 x10^3/uL (140-400) Neutrophils (%) (Auto) 81 % (31-73) Lymphocytes (%) (Auto) 9 % (24-48) Monocytes (%) (Auto) 8 % (0-9) Eosinophils (%) (Auto) 2 % (0-3) Basophils (%) (Auto) 1 % (0-3) Neutrophils # (Auto) 7.8 x10^3uL (1.8-7.7) Lymphocytes # (Auto) 0.9 x10^3/uL (1.0-4.8) Monocytes # (Auto) 0.7 x10^3/uL (0.0-1.1) Eosinophils # (Auto) 0.2 x10^3/uL (0.0-0.7) Basophils # (Auto) 0.1 x10^3/uL (0.0-0.2) Urine Collection Type Unknown Urine Color Red Urine Clarity Cloudy Urine pH 8.0 Urine Specific [place] 1.010 Urine Protein >=300 mg/dL (NEG-TRACE) Urine Glucose (UA) Negative mg/dL (NEG) Urine Ketones (Stick) Negative mg/dL (NEG) Urine Blood Large (NEG) Urine Nitrite Negative (NEG) Urine Bilirubin Negative (NEG) Urine Urobilinogen Dipstick 0.2 mg/dL (0.2 mg/dL) Urine Leukocyte Esterase Small (NEG) Urine RBC Occ /HPF (0-2) Urine WBC 11-20 /HPF (0-4) Urine Squamous Epithelial Cells Many /LPF Urine Bacteria Many /HPF (0-FEW) Urine Mucus Mod /LPF Sodium Level 138 mmol/L (136-145) Potassium Level 3.9 mmol/L (3.5-5.1) Chloride Level 102 mmol/L (98-107) Carbon Dioxide Level 26 mmol/L (21-32) Anion Gap 10 (6-14) Blood Urea Nitrogen 18 mg/dL (7-20) Creatinine 2.1 mg/dL (0.6-1.0) Estimated GFR (Cockcroft-Gault) 23.4 BUN/Creatinine Ratio 9 (6-20) Glucose Level 180 mg/dL (70-99) Lactic Acid Level 1.3 mmol/L (0.4-2.0) Calcium Level 9.2 mg/dL (8.5-10.1) Magnesium Level 1.8 mg/dL (1.8-2.4) Total Bilirubin 5.2 mg/dL (0.2-1.0) Aspartate Amino Transf (AST/SGOT) 336 U/L (15-37) Alanine Aminotransferase (ALT/SGPT) 98 U/L (14-59) Alkaline Phosphatase 383 U/L (46-116) Creatine Kinase 53 U/L (26-192) Creatine Kinase MB (Mass) 0.9 ng/mL (0.0-3.6) Creatine Kinase MB Relative Index % (0-4) Troponin I Quantitative 0.064 ng/mL (0.000-0.055) 0.088 ng/mL (0.000-0.055) Total Protein 6.1 g/dL (6.4-8.2) Albumin 3.1 g/dL (3.4-5.0) Albumin/Globulin Ratio 1.0 (1.0-1.7) Lipase 3436 U/L (73-393) Test 10/13/18 03:30 10/13/18 07:14 10/13/18 11:23 Troponin I Quantitative 0.083 ng/mL (0.000-0.055) Glucose (Fingerstick) 102 mg/dL (70-99) 109 mg/dL (70-99) VTE Prophylaxis Ordered VTE Prophylaxis Devices: Yes VTE Pharmacological Prophylaxi: No Assessment/Plan Assessment/Plan Acute pancreatitis End Stage renal disease on hemodialysis History fo chronic systolic dysfunction with EF of 40% currently compensated Elevated troponin most likely demand ischemia. Type 2 NSTEMI Plan; Continue dialysis as per consultant teacher Nothing by mouth Recheck labs in the a.m. Pain management Resume home medications We'll transition to IV form for medications that may be needed at this time Further recommendations based on the clinical course KENIA BOOTH MD October 13, 2018 13:30
[2018-10-13 15:00] VITALS: BP 119/57
[2018-10-13 19:52] VITALS: BP 130/56
[2018-10-13 23:34] VITALS: BP 125/63
[2018-10-14 03:26] VITALS: BP 115/64
--- NOTE | 2018-10-14 03:55 | CONS ---
DATE OF CONSULTATION: REASON FOR CONSULTATION: Renal failure. REASON FOR ADMISSION: Abdominal pain, possible pancreatitis. HISTORY OF PRESENT ILLNESS: This is a 68-year-old female with history of diabetes mellitus and hypertension. She has end-stage renal disease, which is currently hemodialysis dependent at [facility] on Sunday, and Sunday schedule. She currently presents to the hospital with abdominal discomfort. Evaluation is in process. She will need ongoing dialysis management of comorbidities of end-stage renal disease. PAST MEDICAL HISTORY: Diabetes mellitus; hypertension; end-stage renal disease, hemodialysis dependent on Sunday, and Sunday; congestive cardiomyopathy; CVA; TIA; right hemiparesis; slurred speech from CVA; vascular access placement; pacemaker placement; cholecystectomy; hysterectomy; appendectomy; exploratory laparotomy and diverticulitis surgery. ALLERGIES: MORPHINE, PROMETHAZINE and CODEINE. MEDICATIONS: Reviewed per medications list. FAMILY HISTORY: Noncontributory. SOCIAL HISTORY: The patient has currently been rising at a skilled facility. REVIEW OF SYSTEMS: No headache, sinus problem, nasal drainage, epistaxis, change in vision or hearing. No difficulty swallowing. No fever, chills, cough, sputum production or hemoptysis. No chest pain, shortness of breath, PND, orthopnea, dyspnea on exertion. No abdominal pain. No diarrhea and some nausea. No seizures or malignancies. PHYSICAL EXAMINATION: GENERAL APPEARANCE: The patient awake, conversant and appropriate. HEENT: Clear. NECK: No increased JVD. No thyromegaly, mass, or adenopathy. LUNGS: Clear. CARDIAC: Without S3 or rub. ABDOMEN: Slightly distended and tender. EXTREMITIES: Without edema. NEUROLOGICAL: Slurred speech and right hemiparesis. PSYCHIATRIC: Fair attention to detail, appropriate affect. LABORATORY DATA: Sodium 138, potassium 3.9, chloride 102, CO2 is 26, BUN is 18, creatinine 2.1 and GFR 23 mL per minute. Magnesium 1.8, calcium 9.2, total bilirubin 5.2, AST 336, ALT 98, alkaline phosphatase 383, lipase 3436, total protein 6.1 and albumin 3.1. IMPRESSION: 1. 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 2. Pancreatitis. 3. Anemia of chronic kidney disease. RECOMMENDATIONS: 1. Ongoing dialysis Sunday, and Sunday. 2. GI consultation. Maintain fluid balance. We will follow. BINDU IRELAND MD DR: PURA/ishmael JOB#: [id number] / [id number]
[2018-10-14 07:00] VITALS: BP 91/42
--- NOTE | 2018-10-14 07:24 | NUR ---
Read Dr. Patterson's note says to continue home meds..called [facility] and asked to fax med list here, still waiting, day nurse aware of this.
[2018-10-14] MEDS: INSULIN LISPRO 300 UNITS/3 ML INSULN.PEN. SQ SCH ×3 (08:00→17:00)
[2018-10-14] MEDS ORDERED: ALBUTEROL SULFATE 2.5 MG/3 ML NEBU. NEB PRN (08:15)
[2018-10-14] MEDS ORDERED: IV NORMAL SALINE 1000ML BAG 1,000 ML IV SCH (08:15)
[2018-10-14] MEDS ORDERED: LORazepam 0.5 MG TABLET PO PRN (08:15)
[2018-10-14] MEDS ORDERED: traMADol 50 MG TABLET PO PRN (08:15)
[2018-10-14] MEDS: VITAMIN B COMPLEX TABLET. PO SCH (09:00)
[2018-10-14] MEDS: amLODIPine BESYLATE 10 MG TABLET PO SCH (09:00)
[2018-10-14] MEDS: FERROUS SULFATE 325 MG TABLET. PO SCH ×3 (09:00→20:22)
[2018-10-14] MEDS: SERTRALINE 50 MG TABLET. PO SCH (09:00)
[2018-10-14] MEDS: ISOSORBIDE MONONITRATE ER 30 MG TAB.ER.24H PO SCH (09:00)
[2018-10-14] MEDS: CLOPIDOGREL BISULFATE 75 MG TABLET PO SCH (09:00)
[2018-10-14] MEDS: IPRATRPIUM/ALBUTEROL 0.5/2.5MG 3 ML NEBU. NEB SCH ×4 (09:00→20:06)
[2018-10-14] MEDS: NYSTATIN TOPICAL POWDER 15GM BOTTLE. TP SCH ×2 (09:00→20:32)
[2018-10-14] MEDS: LACTOBACILLUS RHAMNOSUS GG 1 CAPSULE. PO SCH ×2 (09:00→20:21)
[2018-10-14] MEDS: FLUTICASONE 50MCG/NASAL SPRAY 16GM BOTTLE. NS SCH (09:00)
[2018-10-14] MEDS: CARVEDILOL 6.25 MG TABLET. PO SCH ×2 (09:00→16:58)
--- NOTE | 2018-10-14 10:52 | PDOC ---
PROGRESS NOTES Chief Complaint Chief Complaint Acute pancreatitis with lipase 3500 SNU resident ESRD on dialysis TTH S Anemia of ESRD History fo chronic systolic dysfunction with EF of 40% currently compensated Elevated troponin most likely demand ischemia. Type 2 NSTEMI History of Present Illness History of Present Illness EPIGastric pain tender to palpation mild to moderate level Relative hypoglycemia, blood sugars 80s to 100s Nothing by mouth because of acute pancreatitis Plan Start dextrose IVF Nothing by mouth Repeat lipase tomorrow Check CT abdomen pelvis with oral contrast only Hold NovoLog 10 3 times a day and 26 daily at bedtime because nothing by mouth and relative hypoglycemia Back to SNU on discharge Troponin is 0.06 with 0.0.8. Reassuring EKG Vitals Vitals Vital Signs Date Time Temp Pulse Resp B/P (MAP) Pulse Ox O2 Delivery O2 Flow Rate FiO2 10/14/18 09:00 67 91/42 10/14/18 08:46 97 Room Air 10/14/18 07:00 98.5 20 98.5 Physical Exam General: Alert, Oriented X3, No acute distress Heart: Regular rate, No murmurs Lungs: Clear Abdomen: Normal bowel sounds, Soft, Other (mild tenderness epig area) Extremities: No clubbing, No cyanosis, No edema Skin: No rashes, No breakdown, No significant lesion Labs LABS Laboratory Tests Test 10/13/18 11:23 10/13/18 16:41 10/13/18 19:25 10/14/18 07:29 Glucose (Fingerstick) 109 mg/dL (70-99) 90 mg/dL (70-99) 81 mg/dL (70-99) 72 mg/dL (70-99) Review of Systems Review of Systems Abdominal pain, no nausea, no emesis Assessment and Plan Assessmemt and Plan Problems Medical Problems: (1) Acute pancreatitis Status: Acute (2) Elevated troponin Status: Acute (3) ESRD (end stage renal disease) on dialysis Status: Acute Comment Review of Relevant I have reviewed the following items octavio (where applicable) has been applied. Labs Laboratory Tests Test 10/12/18 20:20 10/12/18 20:35 10/12/18 21:00 10/13/18 01:05 White Blood Count 9.7 x10^3/uL (4.0-11.0) Red Blood Count 4.61 x10^6/uL (3.50-5.40) Hemoglobin 14.8 g/dL (12.0-15.5) Hematocrit 43.7 % (36.0-47.0) Mean Corpuscular Volume 95 fL (79-100) Mean Corpuscular Hemoglobin 32 pg (25-35) Mean Corpuscular Hemoglobin Concent 34 g/dL (31-37) Red Cell Distribution Width 17.3 % (11.5-14.5) Platelet Count 145 x10^3/uL (140-400) Neutrophils (%) (Auto) 81 % (31-73) Lymphocytes (%) (Auto) 9 % (24-48) Monocytes (%) (Auto) 8 % (0-9) Eosinophils (%) (Auto) 2 % (0-3) Basophils (%) (Auto) 1 % (0-3) Neutrophils # (Auto) 7.8 x10^3uL (1.8-7.7) Lymphocytes # (Auto) 0.9 x10^3/uL (1.0-4.8) Monocytes # (Auto) 0.7 x10^3/uL (0.0-1.1) Eosinophils # (Auto) 0.2 x10^3/uL (0.0-0.7) Basophils # (Auto) 0.1 x10^3/uL (0.0-0.2) Urine Collection Type Unknown Urine Color Red Urine Clarity Cloudy Urine pH 8.0 Urine Specific [place] 1.010 Urine Protein >=300 mg/dL (NEG-TRACE) Urine Glucose (UA) Negative mg/dL (NEG) Urine Ketones (Stick) Negative mg/dL (NEG) Urine Blood Large (NEG) Urine Nitrite Negative (NEG) Urine Bilirubin Negative (NEG) Urine Urobilinogen Dipstick 0.2 mg/dL (0.2 mg/dL) Urine Leukocyte Esterase Small (NEG) Urine RBC Occ /HPF (0-2) Urine WBC 11-20 /HPF (0-4) Urine Squamous Epithelial Cells Many /LPF Urine Bacteria Many /HPF (0-FEW) Urine Mucus Mod /LPF Sodium Level 138 mmol/L (136-145) Potassium Level 3.9 mmol/L (3.5-5.1) Chloride Level 102 mmol/L (98-107) Carbon Dioxide Level 26 mmol/L (21-32) Anion Gap 10 (6-14) Blood Urea Nitrogen 18 mg/dL (7-20) Creatinine 2.1 mg/dL (0.6-1.0) Estimated GFR (Cockcroft-Gault) 23.4 BUN/Creatinine Ratio 9 (6-20) Glucose Level 180 mg/dL (70-99) Lactic Acid Level 1.3 mmol/L (0.4-2.0) Calcium Level 9.2 mg/dL (8.5-10.1) Magnesium Level 1.8 mg/dL (1.8-2.4) Total Bilirubin 5.2 mg/dL (0.2-1.0) Aspartate Amino Transf (AST/SGOT) 336 U/L (15-37) Alanine Aminotransferase (ALT/SGPT) 98 U/L (14-59) Alkaline Phosphatase 383 U/L (46-116) Creatine Kinase 53 U/L (26-192) Creatine Kinase MB (Mass) 0.9 ng/mL (0.0-3.6) Creatine Kinase MB Relative Index % (0-4) Troponin I Quantitative 0.064 ng/mL (0.000-0.055) 0.088 ng/mL (0.000-0.055) Total Protein 6.1 g/dL (6.4-8.2) Albumin 3.1 g/dL (3.4-5.0) Albumin/Globulin Ratio 1.0 (1.0-1.7) Lipase 3436 U/L (73-393) Test 10/13/18 03:30 10/13/18 07:14 10/13/18 11:23 10/13/18 16:41 Troponin I Quantitative 0.083 ng/mL (0.000-0.055) Glucose (Fingerstick) 102 mg/dL (70-99) 109 mg/dL (70-99) 90 mg/dL (70-99) Test 10/13/18 19:25 10/14/18 07:29 Glucose (Fingerstick) 81 mg/dL (70-99) 72 mg/dL (70-99) Laboratory Tests Test 10/13/18 11:23 10/13/18 16:41 10/13/18 19:25 10/14/18 07:29 Glucose (Fingerstick) 109 mg/dL (70-99) 90 mg/dL (70-99) 81 mg/dL (70-99) 72 mg/dL (70-99) Medications Current Medications Aspirin (Rose Aspirin) 325 mg 1X ONCE PO Last administered on 10/12/18at 23:19; Start 10/12/18 at 22:30; Stop 10/12/18 at 22:31; Status DC Ondansetron HCl (Zofran) 4 mg PRN Q8HRS PRN IV NAUSEA/VOMITING Last administered on 10/12/18at 23:19; Start 10/12/18 at 22:45; Stop 10/13/18 at 22:44; Status DC Fentanyl Citrate (Fentanyl 2ml Vial) 50 mcg PRN Q2HR PRN IV PAIN; Start 10/12/18 at 22:45 Insulin Human Lispro (HumaLOG) 0-5 UNITS TIDWMEALS SQ ; Start 10/13/18 at 08:00 Dextrose (Dextrose 50%-Water Syringe) 12.5 gm PRN Q15MIN PRN IV SEE COMMENTS; Start 10/12/18 at 22:45 Tramadol HCl (Ultram) 50 mg PRN Q6HRS PRN PO PAIN; Start 10/14/18 at 08:15 Albuterol Sulfate (Ventolin Neb Soln) 2.5 mg PRN Q4HRS PRN NEB soa; Start 10/14/18 at 08:15 Amlodipine Besylate (Norvasc) 10 mg DAILY PO ; Start 10/14/18 at 09:00 Atorvastatin Calcium (Lipitor) 10 mg HS PO ; Start 10/14/18 at 21:00 Carvedilol (Coreg) 6.25 mg BIDWMEALS PO ; Start 10/14/18 at 09:00 Clopidogrel Bisulfate (Plavix) 75 mg DAILY PO ; Start 10/14/18 at 09:00 Ferrous Sulfate (Feosol) 325 mg TID PO ; Start 10/14/18 at 09:00 Guaifenesin (Mucinex) 600 mg BID PO ; Start 10/14/18 at 09:00 Albuterol/ Ipratropium (Duoneb) 3 ml RTQID NEB ; Start 10/14/18 at 09:00 Isosorbide Mononitrate (Imdur) 30 mg DAILY PO ; Start 10/14/18 at 09:00 Lactobacillus Rhamnosus (Culturelle) 1 cap BID PO ; Start 10/14/18 at 09:00 Lorazepam (Ativan) 0.5 mg TID PRN PRN PO ANXIETY / AGITATION; Start 10/14/18 at 08:15 Nystatin (Nystop) 1 betzy BID TP ; Start 10/14/18 at 09:00 Sertraline HCl (Zoloft) 50 mg DAILY PO ; Start 10/14/18 at 09:00 Vitamin B Complex (Oren B) 1 tab DAILY PO ; Start 10/14/18 at 09:00 Fluticasone Propionate (Flonase) 2 spray DAILY NS ; Start 10/14/18 at 09:00 Hydralazine HCl (Apresoline) 100 mg TID PO ; Start 10/14/18 at 09:00 Sodium Chloride 1,000 ml @ 80 mls/hr [id number] IV Last administered on 10/14/18at 08:15; Start 10/14/18 at 08:15 Active Scripts Active Reported Flonase Allergy Relief (Fluticasone Propionate) 9.9 Ml [place].susp 2 Sprays NS DAILY Ferrous Sulfate 325 Mg Tablet 1 Tab PO TID B-Complex with C (B Complex with Vitamin C) 1 Each Tablet 1 Each PO DAILY Hydralazine Hcl 100 Mg Tablet 1 Tab PO TID Mucinex (Guaifenesin) 600 Mg Tablet.er 1 Tab PO BID Amlodipine Besylate 10 Mg Tablet 10 Mg PO DAILY Zoloft (Sertraline Hcl) 50 Mg Tablet 1 Tab PO DAILY Nystatin 15 Gm Powder 1 Betzy TP BID Lorazepam 0.5 Mg Tablet 1 Tab PO TID PRN PRN Culturelle (Lactobacillus Rhamnosus Gg) 1 Each Cap.sprink 1 Each PO BID Isosorbide Mononitrate Er (Isosorbide Mononitrate) 30 Mg Tab.er.24h 1 Tab PO DAILY Duoneb 0.5-3(2.5) Mg/3 Ml (Albuterol/Ipratropium) 3 Ml Ampul.neb 3 Ml NEB QID Coreg (Carvedilol) 3.125 Mg Tablet 6.25 Mg PO BIDWMEALS Atorvastatin Calcium 10 Mg Tablet 10 Mg PO HS Albuterol Sulfate Neb Soln (Albuterol Sulfate) 2.5 Mg/3 Ml Vial.neb 1 Vial NEB PRN Q4HRS Levemir (Insulin Detemir) 100 Unit/1 Ml Vial 26 Unit SQ HS Novolog (Insulin Aspart) 100 Unit/1 Ml Cartridge 10 Unit SQ TIDAC Plavix (Clopidogrel Bisulfate) 75 Mg Tablet 75 Mg PO DAILY Vitals/I & O Vital Sign - Last 24 Hours 10/13/18 10/13/18 10/13/18 10/13/18 11:08 15:00 19:52 20:00 Temp 98.9 97.3 98.0 98.9 97.3 98.0 Pulse 72 72 72 Resp 18 18 B/P (MAP) 145/89 (107) 119/57 (77) 130/56 (80) Pulse Ox 96 97 96 O2 Delivery Room Air Room Air Room Air Room Air 10/13/18 10/14/18 10/14/18 10/14/18 23:34 03:26 07:00 08:46 Temp 98.2 98.2 98.5 98.2 98.2 98.5 Pulse 74 75 67 Resp 18 20 B/P (MAP) 125/63 (83) 115/64 (81) 91/42 (58) Pulse Ox 96 98 94 97 O2 Delivery Room Air Room Air Room Air Room Air 10/14/18 10/14/18 10/14/18 10/14/18 09:00 09:00 09:00 09:00 Pulse 67 67 67 67 B/P (MAP) 91/42 91/42 91/42 91/42 Intake and Output 10/13/18 10/13/18 10/14/18 15:00 23:00 07:00 Intake Total 0 ml 0 ml 0 ml Balance 0 ml 0 ml 0 ml AB DOARN MD October 14, 2018 10:52
[2018-10-14 11:00] VITALS: BP 133/58
[2018-10-14] MEDS: IV DEXTROSE 5 %-0.45 % NACL 1,000 ML IV SCH (11:01)
[2018-10-14] MEDS ORDERED: IOHEXOL 240 MG/ML 50ML VIAL. PO ONE (11:30)
--- NOTE | 2018-10-14 12:15 | NUR ---
Patient given dye beverage pre-radiology, at this time.
--- NOTE | 2018-10-14 13:34 | PDOC ---
SUBJECTIVE ROS States feeling better OBJECTIVE Vital Signs Vital Signs Date Time Temp Pulse Resp B/P (MAP) Pulse Ox O2 Delivery O2 Flow Rate FiO2 10/14/18 11:00 98.1 79 20 133/58 (83) 99 Room Air 98.1 I & 0 Intake and Output 10/14/18 07:00 Intake Total 0 ml Balance 0 ml Intake Oral 0 ml # Voids 1 PHYSICAL EXAM Physical Exam GEN: NAD, sitting up in chair HEN: oM MOIST NECK: Supple CVS: RRR RESP: No Acc. Muscle Use GI: BS + ve, NO Bruit, Non Distended : No Guerrero DIAGNOSIS/ASSESSMENT Assessment & Plan End-stage renal disease- secondary to diabetic nephropathy HD TTS at LE Currently No indication for HD today Pancreatitis - Lipase elevated, CT scan Abd pending GI consulted Chronic systolic dysfunction with EF of 40% currently compensated DM- Primary managing Anemia -Normal Hgb, stable COMMENT/RELEVANT DATA Meds Current Medications Medications (Trade) Dose Ordered Sig/Aleksandra Start Time Stop Time Status Last Admin Dose Admin Albuterol Sulfate (Ventolin Neb Soln) 2.5 mg PRN Q4HRS PRN 10/14/18 08:15 Albuterol/ Ipratropium (Duoneb) 3 ml RTQID 10/14/18 09:00 Amlodipine Besylate (Norvasc) 10 mg DAILY 10/14/18 09:00 Aspirin (Rose Aspirin) 325 mg 1X ONCE 10/12/18 22:30 10/12/18 22:31 DC 10/12/18 23:19 325 MG Atorvastatin Calcium (Lipitor) 10 mg HS 10/14/18 21:00 Carvedilol (Coreg) 6.25 mg BIDWMEALS 10/14/18 09:00 Clopidogrel Bisulfate (Plavix) 75 mg DAILY 10/14/18 09:00 Dextrose (Dextrose 50%-Water Syringe) 12.5 gm PRN Q15MIN PRN 10/12/18 22:45 Dextrose/Sodium Chloride 1,000 ml @ 80 mls/hr [id number] 10/14/18 12:00 10/14/18 11:01 80 MLS/HR Fentanyl Citrate (Fentanyl 2ml Vial) 50 mcg PRN Q2HR PRN 10/12/18 22:45 Ferrous Sulfate (Feosol) 325 mg TID 10/14/18 09:00 Fluticasone Propionate (Flonase) 2 spray DAILY 10/14/18 09:00 Guaifenesin (Mucinex) 600 mg BID 10/14/18 09:00 Hydralazine HCl (Apresoline) 100 mg TID 10/14/18 09:00 Insulin Human Lispro (HumaLOG) 0-5 UNITS TIDWMEALS 10/13/18 08:00 Iohexol (Omnipaque 240 Mg/ml) 30 ml 1X ONCE 10/14/18 11:30 10/14/18 11:31 DC Isosorbide Mononitrate (Imdur) 30 mg DAILY 10/14/18 09:00 Lactobacillus Rhamnosus (Culturelle) 1 cap BID 10/14/18 09:00 Lorazepam (Ativan) 0.5 mg TID PRN PRN 10/14/18 08:15 Nystatin (Nystop) 1 tejas BID 10/14/18 09:00 Ondansetron HCl (Zofran) 4 mg PRN Q8HRS PRN 10/12/18 22:45 10/13/18 22:44 DC 10/12/18 23:19 4 MG Sertraline HCl (Zoloft) 50 mg DAILY 10/14/18 09:00 Sodium Chloride 1,000 ml @ 80 mls/hr [id number] 10/14/18 08:15 10/14/18 10:49 DC 10/14/18 08:15 80 MLS/HR Tramadol HCl (Ultram) 50 mg PRN Q6HRS PRN 10/14/18 08:15 Vitamin B Complex (Oren B) 1 tab DAILY 10/14/18 09:00 Lab Laboratory Tests Test 10/13/18 16:41 10/13/18 19:25 10/14/18 07:29 10/14/18 09:43 Glucose (Fingerstick) 90 mg/dL (70-99) 81 mg/dL (70-99) 72 mg/dL (70-99) Lipase 291 U/L (73-393) Results All relevant outside records, renal labs, imaging studies, telemetry/EKG's were reviewed. MARIA ALEJANDRA PETTIT MD October 14, 2018 13:34
[2018-10-14 15:00] VITALS: BP 140/77
--- NOTE | 2018-10-14 17:00 | NUR ---
Returned call from medical staff of [facility] RE: patient status of their resident.
[2018-10-14 19:20] VITALS: BP 166/57
[2018-10-14] MEDS ORDERED: ATORVASTATIN CALCIUM 10 MG TABLET. PO SCH (21:00)
[2018-10-14 23:10] VITALS: BP 130/64
[2018-10-15] MEDS: IV DEXTROSE 5 %-0.45 % NACL 1,000 ML IV SCH ×2 (00:11→13:00)
[2018-10-15 03:10] VITALS: BP 135/62
[2018-10-15 04:31] LABS: CALCIUM 9.6 mg/dL (8.5-10.1); CREATININE 4.1 mg/dL (0.6-1.0); GFR 10.8; POTASSIUM 4.1 mmol/L (3.5-5.1)
[2018-10-15 07:00] VITALS: BP 154/63
[2018-10-15] MEDS ORDERED: IV NORMAL SALINE 1000ML BAG 1,000 ML IV PRN ×2 (07:30)
--- NOTE | 2018-10-15 07:30 | NUR ---
Pt taken to dialysis per bed.
[2018-10-15] MEDS: FERROUS SULFATE 325 MG TABLET. PO SCH ×2 (07:40→13:17)
[2018-10-15] MEDS: INSULIN LISPRO 300 UNITS/3 ML INSULN.PEN. SQ SCH ×2 (07:40→12:00)
[2018-10-15] MEDS: IPRATRPIUM/ALBUTEROL 0.5/2.5MG 3 ML NEBU. NEB SCH ×2 (08:00→11:46)
[2018-10-15] MEDS ORDERED: 0.9 % SODIUM CHLORIDE 10 ML DISP.SYRIN. IV PRN ×2 (08:45)
[2018-10-15] MEDS ORDERED: DIALYSIS PATIENT. MC PRN ×2 (08:45)
--- NOTE | 2018-10-15 09:48 | RAD ---
CT of the abdomen and pelvis without contrast, 10/14/2018: HISTORY: Epigastric abdominal pain, elevated lipase level Multidetector CT imaging was performed without IV contrast as requested. Oral contrast material was administered for GI tract opacification. Transvenous pacing leads extend into the heart. There is a trace amount of pericardial fluid. Pleural-based calcifications are noted in the lower chest. There is a calcified granuloma in the left base. There are calcified granulomata in the liver and spleen. The unopacified liver is otherwise unremarkable. The gallbladder is surgically absent. No pancreatic abnormality is seen. There is a small cyst arising from the lateral aspect of left kidney. There is bilateral renal cortical scarring. The kidneys show no evidence of obstruction. There is moderate aortoiliac calcific plaquing without evidence of aneurysm. No abdominal or pelvic adenopathy is seen. The uterus is surgically absent. The bowel loops are not dilated. No free air or free fluid is evident in the abdomen or pelvis. Moderate multilevel degenerative changes are present in the spine. There is fusion of the T12 and L1 vertebral bodies. Several subcutaneous nodules are noted in the anterior abdominal wall inferiorly on both sides. These probably represent areas of scarring at subcutaneous injection sites. IMPRESSION: 1. Chronic findings as described above. 2. No acute abdominal or pelvic abnormality is detected. PQRS Compliance Statement: One or more of the following individualized dose reduction techniques were utilized for this examination: 1. Automated exposure control 2. Adjustment of the mA and/or kV according to patient size 3. Use of iterative reconstruction technique Electronically signed by: Jose Collins MD (10/14/2018 3:17 PM) [facility]
--- NOTE | 2018-10-15 11:29 | SNU/HH DC ---
DISCHARGE ORDERS DISCHARGE INFORMATION: DISCHARGE DATE: October 15, 2018 FINAL DIAGNOSIS Problems Medical Problems: (1) Acute pancreatitis Status: Acute (2) Elevated troponin Status: Acute (3) ESRD (end stage renal disease) on dialysis Status: Acute CONDITION ON DISCHARGE: Stable CODE STATUS: Code Status: Full CUSTODIAL: SNF STAY <30 DAYS: Yes HOSPICE: HOSPICE: No HOSPICE EVAL & TREAT: No LTAC: ADMIT TO LTAC: No POST DISCHARGE ORDERS: ACTIVITY ORDERS: Activity as tolerated, Other, see below WEIGHT BEARING STATUS: Other, see below BATHING ORDERS: Shower-keep dressing dry, No Tub Bath until see DIET AFTER DISCHARGE: Renal WOUND/INCISION CARE: Keep wound/cast CDI CHECKS AFTER DISCHARGE: CHECKS AFTER DISCHARGE: Check blood press - daily, Check blood sugar, ac/hs FOLLOW-UP: PHYSICIAN FOLLOW-UP: pcp, prn - no change in meds, CT abd neg for acute pathology TREATMENT/EQUIPMENT ORDERS: RESPIRATORY EQUIPMENT NEEDED: Oxygen Physical Therapy For: Evalulation/Treatment Occupational Therapy For: Evaluation/Treatment DISCHARGE MEDICATIONS: Home Meds Reported Medications Fluticasone Propionate (Flonase Allergy Relief) 9.9 Ml [place].susp, 2 SPRAYS NS DAILY for nasal allergy, BOTTLE 10/13/18 Ferrous Sulfate (FERROUS SULFATE) 325 Mg Tablet, 1 TAB PO TID for Iron supplement, #30 TAB 3 Refills 10/13/18 B Complex with Vitamin C (B-Complex with C) 1 Each Tablet, 1 EACH PO DAILY for supplement, TAB 10/13/18 Hydralazine Hcl (HYDRALAZINE HCL) 100 Mg Tablet, 1 TAB PO TID for htn, #90 TAB 5 Refills 08/25/18 Guaifenesin (MUCINEX) 600 Mg Tablet.er, 1 TAB PO BID for m, #14 TAB 08/25/18 Amlodipine Besylate (AMLODIPINE BESYLATE) 10 Mg Tablet, 10 MG PO DAILY for htn, TAB 08/25/18 Sertraline Hcl (ZOLOFT) 50 Mg Tablet, 1 TAB PO DAILY for depression, #30 TAB 2 Refills 08/25/18 Nystatin (NYSTATIN) 15 Gm Powder, 1 MICHA TP BID for redness, #1 BOTTLE 08/25/18 Lorazepam (LORAZEPAM) 0.5 Mg Tablet, 1 TAB PO TID PRN PRN for ANXIETY / AGITATION, #90 TAB 08/25/18 Lactobacillus Rhamnosus Gg (CULTURELLE) 1 Each Cap.sprink, 1 EACH PO BID for ppx, CAP 08/25/18 Isosorbide Mononitrate (ISOSORBIDE MONONITRATE ER) 30 Mg Tab.er.24h, 1 TAB PO DAILY for htn, #30 TAB 5 Refills 08/25/18 Ipratropium/Albuterol Sulfate (DUONEB 0.5-3(2.5) MG/3 ML) 3 Ml Ampul.neb, 3 ML NEB QID for soa, EACH 08/25/18 Carvedilol (COREG ) 3.125 Mg Tablet, 6.25 MG PO BIDWMEALS for CARDIAC, TAB 08/25/18 Atorvastatin Calcium (ATORVASTATIN CALCIUM) 10 Mg Tablet, 10 MG PO HS for FOR CHOLESTEROL, #30 TAB 0 Refills 08/25/18 Albuterol Sulfate (ALBUTEROL SULFATE NEB SOLN) 2.5 Mg/3 Ml Vial.neb, 1 VIAL NEB PRN Q4HRS for SOA, #50 VIAL 08/25/18 Insulin Detemir (LEVEMIR) 100 Unit/1 Ml Vial, 26 UNIT SQ HS, VIAL 07/20/16 Insulin Aspart (NOVOLOG) 100 Unit/1 Ml Cartridge, 10 UNIT SQ TIDAC, EACH 07/20/16 Clopidogrel Bisulfate (PLAVIX) 75 Mg Tablet, 75 MG PO DAILY for TO PREVENT BLOOD CLOTS, #30 TAB 0 Refills 09/15/15 AB DORAN MD October 15, 2018 11:29
--- NOTE | 2018-10-15 11:31 | PDOC3 ---
Discharge Summary Visit Information Date of Admission: October 13, 2018 Date of Discharge: October 15, 2018 Admitting Diagnosis Comment: Acute pancreatitis with lipase 3500, idiopathic- first episode SNU resident ESRD on dialysis TTH S Anemia of ESRD History fo chronic systolic dysfunction with EF of 40% currently compensated Elevated troponin most likely demand ischemia. Type 2 NSTEMI Final Diagnosis Problems Medical Problems: (1) Acute pancreatitis Status: Acute (2) Elevated troponin Status: Acute (3) ESRD (end stage renal disease) on dialysis Status: Acute Brief Hospital Course Allergies Allergies Coded Allergies Type Severity Reaction Last Updated Verified morphine Allergy Intermediate SWELLING 12/24/17 Yes codeine Adverse Reaction Intermediate 12/24/17 Yes promethazine Adverse Reaction Intermediate CONFUSION 12/24/17 Yes Vital Signs Vital Signs Date Time Temp Pulse Resp B/P (MAP) Pulse Ox O2 Delivery O2 Flow Rate FiO2 10/15/18 07:15 Room Air 10/15/18 07:00 97.6 65 18 154/63 (93) 98 97.6 Lab Results Laboratory Tests Test 10/13/18 16:41 10/13/18 19:25 10/14/18 07:29 10/14/18 09:43 Glucose (Fingerstick) 90 mg/dL (70-99) 81 mg/dL (70-99) 72 mg/dL (70-99) Lipase 291 U/L (73-393) Test 10/14/18 11:28 10/14/18 16:57 10/14/18 19:41 10/15/18 03:10 Glucose (Fingerstick) 72 mg/dL (70-99) 77 mg/dL (70-99) 88 mg/dL (70-99) Sodium Level 141 mmol/L (136-145) Potassium Level 4.1 mmol/L (3.5-5.1) Chloride Level 104 mmol/L (98-107) Carbon Dioxide Level 23 mmol/L (21-32) Anion Gap 14 (6-14) Blood Urea Nitrogen 39 mg/dL (7-20) Creatinine 4.1 mg/dL (0.6-1.0) Estimated GFR (Cockcroft-Gault) 10.8 Glucose Level 93 mg/dL (70-99) Calcium Level 9.6 mg/dL (8.5-10.1) Test 10/15/18 07:08 Glucose (Fingerstick) 90 mg/dL (70-99) Laboratory Tests Test 10/14/18 16:57 10/14/18 19:41 10/15/18 03:10 10/15/18 07:08 Glucose (Fingerstick) 77 mg/dL (70-99) 88 mg/dL (70-99) 90 mg/dL (70-99) Sodium Level 141 mmol/L (136-145) Potassium Level 4.1 mmol/L (3.5-5.1) Chloride Level 104 mmol/L (98-107) Carbon Dioxide Level 23 mmol/L (21-32) Anion Gap 14 (6-14) Blood Urea Nitrogen 39 mg/dL (7-20) Creatinine 4.1 mg/dL (0.6-1.0) Estimated GFR (Cockcroft-Gault) 10.8 Glucose Level 93 mg/dL (70-99) Calcium Level 9.6 mg/dL (8.5-10.1) Brief Hospital Course Ms. Dunn is a 68 old female, SNU resident, [facility], came in for epigastric pain and found to have a lipase over 3000. CT abdomen negative for signs of acute pancreatitis. With overnight fasting but lipase came down to normal values. Also ESRD on dialysis TTH S. Seen at dialysis today, feeling better. Once able to tolerate a diet later today then can go home. No change in meds Nonalcoholic drinker, no bad diabetes, known nonobese-so far idiopathic acute pancreatitis first episode is my dx Discharge Information Condition at Discharge: Improved, Stable Disposition/Orders: Other (snu) Scheduled Albuterol Sulfate (Albuterol Sulfate Neb Soln) 2.5 Mg/3 Ml Vial.neb, 1 VIAL NEB PRN Q4HRS for SOA, #50 (Reported) Entered as Reported by: AMBER RAY on 08/25/18911 Last Action: Continued on 10/14/18813 by AB DORAN Amlodipine Besylate (Amlodipine Besylate) 10 Mg Tablet, 10 MG PO DAILY for htn, (Reported) Entered as Reported by: AMBER RAY on 08/25/18921 Last Action: Continued on 10/14/18813 by AB DORAN Atorvastatin Calcium (Atorvastatin Calcium) 10 Mg Tablet, 10 MG PO HS for FOR CHOLESTEROL, #30 Ref 0 (Reported) Entered as Reported by: AMBER RAY on 08/25/18911 Last Action: Continued on 10/14/18813 by AB DORAN B Complex with Vitamin C (B-Complex with C) 1 Each Tablet, 1 EACH PO DAILY for supplement, (Reported) Entered as Reported by: Aleksandr Jeter RN on 10/13/18200 Last Action: Converted on 10/14/18813 by AB DORAN Carvedilol (Coreg ) 3.125 Mg Tablet, 6.25 MG PO BIDWMEALS for CARDIAC, (Reported) Entered as Reported by: AMBER RAY on 08/25/18913 Last Action: Continued on 10/14/18813 by AB DORAN Clopidogrel Bisulfate (Plavix) 75 Mg Tablet, 75 MG PO DAILY for TO PREVENT BLOOD CLOTS, #30 Ref 0 (Reported) Entered as Reported by: Norma Quinones on 09/15/152052 Last Action: Continued on 10/14/18813 by AB DORAN Ferrous Sulfate (Ferrous Sulfate) 325 Mg Tablet, 1 TAB PO TID for Iron supplement, #30 Ref 3 (Reported) Entered as Reported by: Aleksandr Jeter RN on 10/13/18203 Last Action: Continued on 10/14/18813 by AB DORAN Fluticasone Propionate (Flonase Allergy Relief) 9.9 Ml [place].susp, 2 SPRAYS NS DAILY for nasal allergy, (Reported) Entered as Reported by: Aleksandr Jeter RN on 10/13/18203 Last Action: Converted on 10/14/18813 by AB DORAN Guaifenesin (Mucinex) 600 Mg Tablet.er, 1 TAB PO BID for m, #14 (Reported) Entered as Reported by: AMBER RAY on 08/25/18921 Last Action: Continued on 10/14/18813 by AB DORAN Hydralazine Hcl (Hydralazine Hcl) 100 Mg Tablet, 1 TAB PO TID for htn, #90 Ref 5 (Reported) Entered as Reported by: AMBER RAY on 08/25/18921 Last Action: Converted on 10/14/18813 by AB DORAN Insulin Aspart (Novolog) 100 Unit/1 Ml Cartridge, 10 UNIT SQ TIDAC, (Reported) Entered as Reported by: MAXIM COLLAZO on 07/20/16 1605 Last Action: HELD on 10/14/18813 by AB DORAN Insulin Detemir (Levemir) 100 Unit/1 Ml Vial, 26 UNIT SQ HS, (Reported) Entered as Reported by: MAXIM COLLAZO on 07/20/16 1605 Last Action: HELD on 10/14/18813 by AB DORAN Ipratropium/Albuterol Sulfate (Duoneb 0.5-3(2.5) Mg/3 Ml) 3 Ml Ampul.neb, 3 ML NEB QID for soa, (Reported) Entered as Reported by: AMBER RAY on 08/25/18915 Last Action: Continued on 10/14/18813 by AB DORAN Isosorbide Mononitrate (Isosorbide Mononitrate Er) 30 Mg Tab.er.24h, 1 TAB PO DAILY for htn, #30 Ref 5 (Reported) Entered as Reported by: AMBER RAY on 08/25/18921 Last Action: Continued on 10/14/18813 by AB DORAN Lactobacillus Rhamnosus Gg (Culturelle) 1 Each Cap.sprink, 1 EACH PO BID for ppx, (Reported) Entered as Reported by: AMBER RAY on 08/25/18921 Last Action: Continued on 10/14/18813 by AB DORAN Nystatin (Nystatin) 15 Gm Powder, 1 MICHA TP BID for redness, #1 (Reported) Entered as Reported by: AMBER RAY on 08/25/18921 Last Action: Continued on 10/14/18813 by AB DORAN Sertraline Hcl (Zoloft) 50 Mg Tablet, 1 TAB PO DAILY for depression, #30 Ref 2 (Reported) Entered as Reported by: AMBER RAY on 08/25/18921 Last Action: Continued on 10/14/18813 by AB DORAN Scheduled PRN Lorazepam (Lorazepam) 0.5 Mg Tablet, 1 TAB PO TID PRN PRN for ANXIETY / AGITATION, #90 (Reported) Entered as Reported by: AMBER RAY on 08/25/18921 Last Action: Continued on 10/14/18813 by AB BAIRD MD October 15, 2018 11:31
[2018-10-15 11:42] VITALS: BP 143/74
--- NOTE | 2018-10-15 13:06 | NUR ---
SW following pt for dc needs. Pt is LTC resident at [facility]. Orders faxed and Pt will transport via facility arranged w/c van at 1400. Pt and pt's aware of plans and agreeable.
[2018-10-15] MEDS: VITAMIN B COMPLEX TABLET. PO SCH (13:14)
[2018-10-15] MEDS: CLOPIDOGREL BISULFATE 75 MG TABLET PO SCH (13:15)
[2018-10-15] MEDS: LACTOBACILLUS RHAMNOSUS GG 1 CAPSULE. PO SCH (13:15)
[2018-10-15] MEDS: CARVEDILOL 6.25 MG TABLET. PO SCH (13:15)
[2018-10-15] MEDS: amLODIPine BESYLATE 10 MG TABLET PO SCH (13:16)
[2018-10-15] MEDS: ISOSORBIDE MONONITRATE ER 30 MG TAB.ER.24H PO SCH (13:16)
[2018-10-15 13:17] VITALS: BP 143/74
[2018-10-15] MEDS: FLUTICASONE 50MCG/NASAL SPRAY 16GM BOTTLE. NS SCH (13:17)
[2018-10-15] MEDS: NYSTATIN TOPICAL POWDER 15GM BOTTLE. TP SCH (13:17)
[2018-10-15] MEDS: SERTRALINE 50 MG TABLET. PO SCH (13:17)
--- NOTE | 2018-10-15 14:10 | NUR ---
Report called to [facility].
--- NOTE | 2018-10-15 14:29 | NUR ---
Pt discharged to [facility] [place].
== END 2018-10-15 14:29 | disposition home or self-care (01) | DRG 438 ==
LOC: ER 18:55 → 6 SOUTH 22:28
PROVIDERS: ADMIT Family Medicine; ATTEND Family Medicine
PROC: 5A1D70Z Performance of Urinary Filtration, Intermittent, Less than 6 Hours Per Day (ICD-10-PCS; principal; 2018-10-15)
DX: K85.90 Acute pancreatitis without necrosis or infection, unspecified (principal); N18.6 End stage renal disease; I21.A1 Myocardial infarction type 2; I13.2 Hypertensive heart and chronic kidney disease with heart failure and with stage 5 chronic kidney disease, or end stage renal disease; G81.91 Hemiplegia, unspecified affecting right dominant side; I42.0 Dilated cardiomyopathy; I50.22 Chronic systolic (congestive) heart failure; Z99.2 Dependence on renal dialysis; Z88.8 Allergy status to other drugs, medicaments and biological substances; D63.1 Anemia in chronic kidney disease; E11.21 Type 2 diabetes mellitus with diabetic nephropathy; M19.90 Unspecified osteoarthritis, unspecified site; E11.22 Type 2 diabetes mellitus with diabetic chronic kidney disease; E11.649 Type 2 diabetes mellitus with hypoglycemia without coma; E78.00 Pure hypercholesterolemia, unspecified; E78.5 Hyperlipidemia, unspecified; F32.9 Major depressive disorder, single episode, unspecified; F41.9 Anxiety disorder, unspecified; Z79.02 Long term (current) use of antithrombotics/antiplatelets; Z79.4 Long term (current) use of insulin; Z79.899 Other long term (current) drug therapy; Z83.3 Family history of diabetes mellitus; Z90.49 Acquired absence of other specified parts of digestive tract; Z95.0 Presence of cardiac pacemaker; Z95.810 Presence of automatic (implantable) cardiac defibrillator; Z90.710 Acquired absence of both cervix and uterus
CPT/HCPCS: 36415; 70450; 71045; 72125; 74176; 80048; 80053; 81001; 82553; 82962; 83605; 83690; 83735; 84484; 85025; 87086; 87641; 93005; 94760; 96374; J1815; J2405; J7030; Q9966; 99291-25

== ENCOUNTER 2019-06-24 19:42 | Emergency (ER) | payer MEDICARE ==
[~2019-06-24] VITALS: Ht 162.6 cm; Wt 67.0 kg
[~2019-06-24 19:42] MED LIST changes: +ASPI81TA50 PO; +B CO1TAB30 PO; +ERGO500027 PO; +FERR325T14 PO; +FLUT9.9S NS; +FOLI1TAB30 PO; +FURO20TA3 PO; -POTA10TA12 PO; +POTASSIUM CHLO10 ME1 PO; +SEVE800T9 PO
[2019-06-24 20:53] LABS: BASO # 0.1 x10^3/uL (0.0-0.2); BASO % 1 % (0-3); EOS # 0.2 x10^3/uL (0.0-0.7); EOS % 2 % (0-3); HEMATOCRIT 32.9 % (36.0-47.0); HEMOGLOBIN 11.4 g/dL (12.0-15.5); LYMPH # 0.8 x10^3/uL (1.0-4.8); LYMPH % 12 % (24-48); MEAN CORPUSCULAR HEMOGLOBIN 35 pg (25-35); MEAN CORPUSCULAR HGB CONC 35 g/dL (31-37); MEAN CORPUSCULAR VOLUME 101 fL (79-100); MONO # 0.6 x10^3/uL (0.0-1.1); MONO % 9 % (0-9); NEUT # 5.2 x10^3/uL (1.8-7.7); NEUT % 76 % (31-73); PLATELET COUNT 229 x10^3/uL (140-400); RED BLOOD COUNT 3.26 x10^6/uL (3.50-5.40); RED CELL DISTRIBUTION WIDTH 13.5 % (11.5-14.5); WHITE BLOOD COUNT 6.9 x10^3/uL (4.0-11.0)
[2019-06-24 21:01] LABS: CREATININE 4.4 mg/dL (0.6-1.0); POTASSIUM 4.8 mmol/L (3.5-5.1)
[2019-06-24 21:06] LABS: ALBUMIN 3.5 g/dL (3.4-5.0); ALBUMIN/GLOBULIN RATIO 0.9 (1.0-1.7); TOTAL BILIRUBIN 0.6 mg/dL (0.2-1.0); TOTAL PROTEIN 7.3 g/dL (6.4-8.2)
--- NOTE | 2019-06-24 21:14 | PHYS DOC ---
Past Medical History Past Medical History: CHF, CVA, Diabetes-Type II, Diverticulitis, High Cholesterol, Hypertension, Renal Failure, TIA, Other Additional Past Medical Histor: Rt hemiparesis, slurred speech from CVA Past Surgical History: Appendectomy, Cholecystectomy, Hysterectomy, Pacemaker, Other Additional Past Surgical Histo: exp lap, diverticulits surgery Alcohol Use: None Drug Use: None Adult General Chief Complaint Chief Complaint: WEAKNESS/GENERALIZED HPI HPI 68-year-old female with underlying history of hypertension, diabetes, end-stage renal disease hemodialysis dependent (Sunday) resistance to the emergency Department complaints of generalized weakness. She denies any fever, cough, nausea, vomiting. Patient denies any chest pain, shortness of breath, headache or visual change. Nothing makes her symptoms worse, nothing makes her symptoms better. She states she dialyzes today and felt increasingly weak after dialysis. Patient has a history of CVA with speech deficit. Review of Systems Review of Systems Constitutional: Denies fever or chills [] Respiratory: Denies cough or shortness of breath [] Cardiovascular: No additional information not addressed in HPI [] GI: Denies abdominal pain, nausea, vomiting, bloody stools or diarrhea [] : Denies dysuria or hematuria [] Musculoskeletal: Denies back pain or joint pain [] Integument: Denies rash or skin lesions [] Neurologic: Denies headache, focal weakness or sensory changes [] All other systems were reviewed and found to be within normal limits, except as documented in this note. Current Medications Current Medications Current Medications Medications (Trade) Dose Ordered Sig/Aleksandra Start Time Stop Time Status Last Admin Dose Admin Ondansetron HCl (Zofran) 4 mg STK-MED ONCE 06/24/19 21:34 06/24/19 21:34 DC Allergies Allergies Allergies Coded Allergies Type Severity Reaction Last Updated Verified morphine Allergy Intermediate SWELLING 12/24/17 Yes codeine Adverse Reaction Intermediate 12/24/17 Yes promethazine Adverse Reaction Intermediate CONFUSION 12/24/17 Yes Physical Exam Physical Exam Constitutional: Well developed, well nourished, no acute distress, non-toxic appearance. Slurred speech 2/2 history of CVA [] HENT: Normocephalic, atraumatic, bilateral external ears normal, oropharynx moist, no oral exudates, nose normal. [] Eyes: PERRLA, EOMI, conjunctiva normal, no discharge. [] Cardiovascular:Heart rate regular rhythm, no murmur [] Lungs & Thorax: Bilateral breath sounds clear to auscultation [] Abdomen: Bowel sounds normal, soft, no tenderness, no masses, no pulsatile masses. [] Skin: Warm, dry, no erythema, no rash. [] Back: No tenderness, no CVA tenderness. [] Extremities: No tenderness, no edema. [] Neurologic: Alert and oriented X 3, no focal deficits noted. [] Psychologic: Affect normal, judgement normal, mood normal. [] Current Patient Data Vital Signs Vital Signs Date Time Temp Pulse Resp B/P (MAP) Pulse Ox O2 Delivery O2 Flow Rate FiO2 06/24/19 22:39 82 06/24/19 19:58 98.6 17 147/70 (95) 97 Room Air 98.6 Lab Values Laboratory Tests Test 06/24/19 20:30 White Blood Count 6.9 x10^3/uL (4.0-11.0) Red Blood Count 3.26 x10^6/uL (3.50-5.40) L Hemoglobin 11.4 g/dL (12.0-15.5) L Hematocrit 32.9 % (36.0-47.0) L Mean Corpuscular Volume 101 fL (79-100) H Mean Corpuscular Hemoglobin 35 pg (25-35) Mean Corpuscular Hemoglobin Concent 35 g/dL (31-37) Red Cell Distribution Width 13.5 % (11.5-14.5) Platelet Count 229 x10^3/uL (140-400) Neutrophils (%) (Auto) 76 % (31-73) H Lymphocytes (%) (Auto) 12 % (24-48) L Monocytes (%) (Auto) 9 % (0-9) Eosinophils (%) (Auto) 2 % (0-3) Basophils (%) (Auto) 1 % (0-3) Neutrophils # (Auto) 5.2 x10^3/uL (1.8-7.7) Lymphocytes # (Auto) 0.8 x10^3/uL (1.0-4.8) L Monocytes # (Auto) 0.6 x10^3/uL (0.0-1.1) Eosinophils # (Auto) 0.2 x10^3/uL (0.0-0.7) Basophils # (Auto) 0.1 x10^3/uL (0.0-0.2) Sodium Level 142 mmol/L (136-145) Potassium Level 4.8 mmol/L (3.5-5.1) Chloride Level 102 mmol/L (98-107) Carbon Dioxide Level 32 mmol/L (21-32) Anion Gap 8 (6-14) Blood Urea Nitrogen 28 mg/dL (7-20) H Creatinine 4.4 mg/dL (0.6-1.0) H Estimated GFR (Cockcroft-Gault) 10.0 BUN/Creatinine Ratio 6 (6-20) Glucose Level 153 mg/dL (70-99) H Lactic Acid Level 2.4 mmol/L (0.4-2.0) H Calcium Level 10.0 mg/dL (8.5-10.1) Total Bilirubin 0.6 mg/dL (0.2-1.0) Aspartate Amino Transferase (AST) 52 U/L (15-37) H Alanine Aminotransferase (ALT) 35 U/L (14-59) Alkaline Phosphatase 300 U/L (46-116) H Total Protein 7.3 g/dL (6.4-8.2) Albumin 3.5 g/dL (3.4-5.0) Albumin/Globulin Ratio 0.9 (1.0-1.7) L Laboratory Tests 06/24/19 20:30 Laboratory Tests 06/24/19 20:30 EKG EKG [] Radiology/Procedures Radiology/Procedures [facility] [address] [place], [place] [id number] IMAGING REPORT Signed PATIENT: VIRGIL BLACKMON ACCOUNT: [id number] : 1950 LOCATION: ER AGE: 68 SEX: F EXAM STATUS: REG ER ORD. PHYSICIAN: SAADIA NUNEZ MD REASON: Weakness, cough PROCEDURE: PORTABLE CHEST 1V EXAM: CHEST 1 VIEW History: Weakness COMPARISON: 04/08/2019 TECHNIQUE: Single portable radiograph of the chest FINDINGS: Mild cardiomegaly. Left-sided cardiac pacer AICD is unchanged. The costophrenic sulci are clear and well demarcated. IMPRESSION: No radiographic evidence of an acute cardiopulmonary process. Electronically signed by: Tawanda Carroll MD (06/24/2019 10:17 PM) [facility] DICTATED and SIGNED BY: TAWANDA CARROLL MD DATE: 06/24/192216 [] [facility] [address] [place] [address] IMAGING REPORT Signed PATIENT: VIRGIL BLACKMON ACCOUNT: [id number] : 1950 LOCATION: ER AGE: 68 SEX: F EXAM STATUS: REG ER ORD. PHYSICIAN: SAADIA NUNEZ MD REASON: WEAKNESS PROCEDURE: CT HEAD WO CONTRAST CT HEAD INDICATION: Weakness COMPARISON: 04/16/2019 Exposure: One or more of the following individualized dose reduction techniques were utilized for this examination: 1. Automated exposure control 2. Adjustment of the mA and/or kV according to patient size 3. Use of iterative reconstruction technique TECHNIQUE: 5 mm contiguous axial images were obtained from the skull base to the vertex in both bone and soft tissue algorithm. FINDINGS: Mild bilateral periventricular white matter hypodensities likely chronic small vessel ischemic disease. Hypodensity identified in the right cerebellum similar to prior exam likely old infarct. No evidence of acute intracranial hemorrhage. No extra-axial fluid collections. No mass effect or midline shift. Ventricular size is appropriate. Basal cisterns are patent. No fractures identified.Ordonez-white differentiation is preserved.Globes and orbits are within normal limits. Paranasal sinuses and mastoid air cells are clear. IMPRESSION: No acute intracranial findings. Electronically signed by: Tawanda Carroll MD (06/24/2019 9:35 PM) [facility] DICTATED and SIGNED BY: TAWANDA CARROLL MD DATE: 06/24/192134 Course & Med Decision Making Course & Med Decision Making Pertinent Labs and Imaging studies reviewed. (See chart for details) []68-year-old female with underlying history of hypertension, diabetes, end- stage renal disease hemodialysis dependent (Sunday) resistance to the emergency Department complaints of generalized weakness. She denies any fever, cough, nausea, vomiting. Patient denies any chest pain, shortness of breath, headache or visual change. Nothing makes her symptoms worse, nothing makes her symptoms better. She states she dialyzes today and felt increasingly weak after dialysis. Patient has a history of CVA with speech defi cit. Labs/imaging reviewed No acute process identified to account for generalized weakness Lactic acid 2.4 however isolated Recommend dc home and follow up with HD as scheduled CT head/Chest xray negative for acute process Dragon Disclaimer Dragon Disclaimer This electronic medical record was generated, in whole or in part, using a voice recognition dictation system. Departure Departure Impression: Primary Impression: Generalized weakness Additional Impression: Lactic acidosis Disposition: 01 HOME, SELF-CARE Condition: STABLE Referrals: LUI LUNDBERG (PCP) Patient Instructions: Weakness, [id number] Additional Instructions: Recommend follow up with PCP 3 - 5 days Return to the ER with worsening symptoms, intractable pain, fever, altered ment al status Tylenol/Motrin as needed for pain CT head/chest xray negative No acute findings to account for weakness Problem Qualifiers SAADIA NUNEZ MD Jun 24, 2019 21:14
[2019-06-24] MEDS ORDERED: ONDANSETRON PF 4 MG/2 ML VIAL. ONE (21:34)
--- NOTE | 2019-06-24 21:38 | RAD ---
CT HEAD INDICATION: Weakness COMPARISON: 04/16/2019 Exposure: One or more of the following individualized dose reduction techniques were utilized for this examination: 1. Automated exposure control 2. Adjustment of the mA and/or kV according to patient size 3. Use of iterative reconstruction technique TECHNIQUE: 5 mm contiguous axial images were obtained from the skull base to the vertex in both bone and soft tissue algorithm. FINDINGS: Mild bilateral periventricular white matter hypodensities likely chronic small vessel ischemic disease. Hypodensity identified in the right cerebellum similar to prior exam likely old infarct. No evidence of acute intracranial hemorrhage. No extra-axial fluid collections. No mass effect or midline shift. Ventricular size is appropriate. Basal cisterns are patent. No fractures identified.Ordonez-white differentiation is preserved.Globes and orbits are within normal limits. Paranasal sinuses and mastoid air cells are clear. IMPRESSION: No acute intracranial findings. Electronically signed by: Tawanda Carroll MD (06/24/2019 9:35 PM) [facility]
--- NOTE | 2019-06-24 22:20 | RAD ---
EXAM: CHEST 1 VIEW History: Weakness COMPARISON: 04/08/2019 TECHNIQUE: Single portable radiograph of the chest FINDINGS: Mild cardiomegaly. Left-sided cardiac pacer AICD is unchanged. The costophrenic sulci are clear and well demarcated. IMPRESSION: No radiographic evidence of an acute cardiopulmonary process. Electronically signed by: Tawanda Carroll MD (06/24/2019 10:17 PM) [facility]
[2019-06-24 22:39] VITALS: BP 118/66
--- NOTE | 2019-06-25 06:45 | EKG ---
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
== END 2019-06-24 23:30 | disposition home or self-care (01) ==
LOC: ER 19:42
DX: E87.2 Acidosis (principal); R53.1 Weakness; I50.9 Heart failure, unspecified; I97.821 Postprocedural cerebrovascular infarction following other surgery; E11.9 Type 2 diabetes mellitus without complications; E78.00 Pure hypercholesterolemia, unspecified; I10 Essential (primary) hypertension; N19 Unspecified kidney failure; Z86.73 Personal history of transient ischemic attack (TIA), and cerebral infarction without residual deficits; Z90.49 Acquired absence of other specified parts of digestive tract; Z90.89 Acquired absence of other organs; Z90.710 Acquired absence of both cervix and uterus; Z95.0 Presence of cardiac pacemaker; Z98.890 Other specified postprocedural states; Z88.5 Allergy status to narcotic agent; Z88.8 Allergy status to other drugs, medicaments and biological substances
CPT/HCPCS: 36415; 51701; 70450; 71045; 80053; 83605; 85025; 93005; 99285

== ENCOUNTER 2019-06-26 11:38 | Emergency (ER) | payer MEDICARE ==
[~2019-06-26] VITALS: Ht 157.5 cm; Wt 64.5 kg
[2019-06-26 12:54] LABS: CALCIUM 10.1 mg/dL (8.5-10.1); CREATININE 7.2 mg/dL (0.6-1.0); GFR 5.7; POTASSIUM 4.9 mmol/L (3.5-5.1)
[2019-06-26 12:55] LABS: BASO % 1 % (0-3); EOS # 0.1 x10^3/uL (0.0-0.7); EOS % 2 % (0-3); HEMATOCRIT 34.1 % (36.0-47.0); HEMOGLOBIN 11.3 g/dL (12.0-15.5); LYMPH # 0.8 x10^3/uL (1.0-4.8); LYMPH % 11 % (24-48); MEAN CORPUSCULAR HEMOGLOBIN 34 pg (25-35); MEAN CORPUSCULAR HGB CONC 33 g/dL (31-37); MEAN CORPUSCULAR VOLUME 103 fL (79-100); MONO # 0.5 x10^3/uL (0.0-1.1); MONO % 7 % (0-9); NEUT # 6.1 x10^3/uL (1.8-7.7); NEUT % 80 % (31-73); PLATELET COUNT 191 x10^3/uL (140-400); RED BLOOD COUNT 3.31 x10^6/uL (3.50-5.40); RED CELL DISTRIBUTION WIDTH 13.7 % (11.5-14.5); WHITE BLOOD COUNT 7.6 x10^3/uL (4.0-11.0)
[2019-06-26 13:01] LABS: ALBUMIN 3.4 g/dL (3.4-5.0); MAGNESIUM 2.3 mg/dL (1.8-2.4); TOTAL BILIRUBIN 0.5 mg/dL (0.2-1.0); TOTAL PROTEIN 6.8 g/dL (6.4-8.2)
[2019-06-26 13:51] LABS: PROTHROMBIN TIME PATIENT 12.5 SEC (11.7-14.0)
--- NOTE | 2019-06-26 14:04 | RAD ---
EXAM: Chest, single view. HISTORY: Shortness of breath. COMPARISON: 06/24/2019 FINDINGS: A frontal view of the chest is obtained. There is stable central interstitial prominence. There is no consolidation, pleural effusion or pneumothorax. The heart is normal in size. There is a cardiac pacemaker defibrillator unchanged in position. IMPRESSION: Stable central interstitial prominence. No consolidated infiltrate is seen. Electronically signed by: Mckayla Malloy MD (06/26/2019 2:01 PM) [facility] [place]
[2019-06-26 14:14] LABS: INFLUENZA A PATIENT NEGATIVE (NEGATIVE); INFLUENZA B PATIENT NEGATIVE (NEGATIVE)
--- NOTE | 2019-06-26 14:42 | PHYS DOC ---
Past Medical History Past Medical History: CHF, CVA, Diabetes-Type II, Diverticulitis, High Cholesterol, Hypertension, Renal Failure, TIA, Other Additional Past Medical Histor: Rt hemiparesis, slurred speech from CVA Past Surgical History: Appendectomy, Cholecystectomy, Hysterectomy, Pacemaker, Other Additional Past Surgical Histo: exp lap, diverticulits surgery Alcohol Use: None Drug Use: None Adult General Chief Complaint Chief Complaint: OTHER COMPLAINTS [facility] HPI Patient is a 68 year old female with a history of end-stage renal failure on hemodialysis every Sunday and Sunday. Patient was brought to ER for evaluation due to general weakness, not feeling well from the dialysis center. She had dialysis on Sunday. Patient was in the dialysis center today to have dialysis, when she was asked how she was doing, patient says she did not feel well. They sent her here for evaluation. Patient denies any chest pain, no abdominal pain, no trouble breathing. He denies any fever. She denies any trouble breathing. Patient has history of CVA in the past, has residual slurred speech and right side weakness. aLL OTHER ros IS NEGATIVE UNLESS OTHERWISE NOTED IN hpi Review of Systems Review of Systems sEE ABOVE Allergies Allergies Allergies Coded Allergies Type Severity Reaction Last Updated Verified morphine Allergy Intermediate SWELLING 12/24/17 Yes codeine Adverse Reaction Intermediate 12/24/17 Yes promethazine Adverse Reaction Intermediate CONFUSION 12/24/17 Yes Physical Exam Physical Exam See above Constitutional: Well developed, well nourished, no acute distress, non-toxic appearance. [] HENT: Normocephalic, atraumatic, bilateral external ears normal, oropharynx moist, no oral exudates, nose normal. [] Eyes: PERRLA, EOMI, conjunctiva normal, no discharge. [] Neck: Normal range of motion, no tenderness, supple, no stridor. [] Cardiovascular:Heart rate regular rhythm, no murmur [] Lungs & Thorax: Bilateral breath sounds clear to auscultation [] Abdomen: Bowel sounds normal, soft, no tenderness, no masses, no pulsatile masses. [] Skin: Warm, dry, no erythema, no rash. [] Back: No tenderness, no CVA tenderness. [] Extremities: No tenderness, no cyanosis, no clubbing, Neurologic: Alert and oriented X 3, SPEECH WITH CHRONIC SLURRED PATTERN. Psychologic: Affect normal, judgement normal, mood normal. [] Current Patient Data Vital Signs Vital Signs Date Time Temp Pulse Resp B/P (MAP) Pulse Ox O2 Delivery O2 Flow Rate FiO2 06/26/19 14:45 77 140/88 (105) 100 Room Air 06/26/19 13:48 13 06/26/19 11:38 98.5 98.5 Lab Values Laboratory Tests Test 06/26/19 12:35 06/26/19 13:34 06/26/19 13:46 White Blood Count 7.6 x10^3/uL (4.0-11.0) Red Blood Count 3.31 x10^6/uL (3.50-5.40) L Hemoglobin 11.3 g/dL (12.0-15.5) L Hematocrit 34.1 % (36.0-47.0) L Mean Corpuscular Volume 103 fL (79-100) H Mean Corpuscular Hemoglobin 34 pg (25-35) Mean Corpuscular Hemoglobin Concent 33 g/dL (31-37) Red Cell Distribution Width 13.7 % (11.5-14.5) Platelet Count 191 x10^3/uL (140-400) Neutrophils (%) (Auto) 80 % (31-73) H Lymphocytes (%) (Auto) 11 % (24-48) L Monocytes (%) (Auto) 7 % (0-9) Eosinophils (%) (Auto) 2 % (0-3) Basophils (%) (Auto) 1 % (0-3) Neutrophils # (Auto) 6.1 x10^3/uL (1.8-7.7) Lymphocytes # (Auto) 0.8 x10^3/uL (1.0-4.8) L Monocytes # (Auto) 0.5 x10^3/uL (0.0-1.1) Eosinophils # (Auto) 0.1 x10^3/uL (0.0-0.7) Basophils # (Auto) 0.0 x10^3/uL (0.0-0.2) Sodium Level 139 mmol/L (136-145) Potassium Level 4.9 mmol/L (3.5-5.1) Chloride Level 100 mmol/L (98-107) Carbon Dioxide Level 27 mmol/L (21-32) Anion Gap 12 (6-14) Blood Urea Nitrogen 49 mg/dL (7-20) H Creatinine 7.2 mg/dL (0.6-1.0) H Estimated GFR (Cockcroft-Gault) 5.7 BUN/Creatinine Ratio 7 (6-20) Glucose Level 122 mg/dL (70-99) H Calcium Level 10.1 mg/dL (8.5-10.1) Magnesium Level 2.3 mg/dL (1.8-2.4) Total Bilirubin 0.5 mg/dL (0.2-1.0) Aspartate Amino Transferase (AST) 23 U/L (15-37) Alanine Aminotransferase (ALT) 18 U/L (14-59) Alkaline Phosphatase 282 U/L (46-116) H Total Protein 6.8 g/dL (6.4-8.2) Albumin 3.4 g/dL (3.4-5.0) Albumin/Globulin Ratio 1.0 (1.0-1.7) Prothrombin Time 12.5 SEC (11.7-14.0) Prothrombin Time INR 1.0 (0.8-1.1) Activated Partial Thromboplast Time 28 SEC (24-38) Influenza Type A Antigen Negative (NEGATIVE) Influenza Type B Antigen Negative (NEGATIVE) Laboratory Tests 06/26/19 12:35 Laboratory Tests 06/26/19 12:35 EKG EKG [] Radiology/Procedures Radiology/Procedures [][facility] [address] [place] [address] IMAGING REPORT Signed PATIENT: VIRGIL BLACKMON ACCOUNT: [id number] : 1950 LOCATION: ER AGE: 68 SEX: F EXAM STATUS: REG ER ORD. PHYSICIAN: AMRIK JO DO REASON: SOA PROCEDURE: CHEST AP ONLY EXAM: Chest, single view. HISTORY: Shortness of breath. COMPARISON: 06/24/2019 FINDINGS: A frontal view of the chest is obtained. There is stable central interstitial prominence. There is no consolidation, pleural effusion or pneumothorax. The heart is normal in size. There is a cardiac pacemaker defibrillator unchanged in position. IMPRESSION: Stable central interstitial prominence. No consolidated infiltrate is seen. Electronically signed by: Mckayla Jaimes MD (06/26/2019 2:01 PM) [facility] [place] DICTATED and SIGNED BY: MCKAYLA JAIMES MD DATE: 06/26/19 140 Course & Med Decision Making Course & Med Decision Making Pertinent Labs and Imaging studies reviewed. (See chart for details) She is a 68-year-old female who has end-stage failure on hemodialysis, who was brought to the ER today due to not feeling well. Workup in the ER did not show any acute problem. Patient will need to have her hemodialysis tomorrow as scheduled at 4:30 pm. Patient will be discharged from the ER. Dragon Disclaimer Dragon Disclaimer This electronic medical record was generated, in whole or in part, using a voice recognition dictation system. Departure Departure Impression: Primary Impression: Generalized weakness Additional Impression: Chronic renal failure Disposition: HOME, SELF-CARE Condition: STABLE Referrals: LUI LUNDBERG (PCP) FOLLOW UP WITH YOUR DOCTOR IN 2 DAYS. YOU HAVE AN APPOINTMENT WITH DIALYSIS AT 4:30 PM TOMORROW. Patient Instructions: Weakness Additional Instructions: Thank you for visiting our Emergency Department. We appreciate you trusting us with your care. If any additional problems come up don't hesitate to return to visit us. Please follow up with your primary care provider so they can plan additional care if needed and know about the problem that you had. If symptoms worsen come back to the Emergency Department. Any concerning symptoms that start such as chest pain, shortness of air, weakness or numbness on one side of the body, running high fevers or any other concerning symptoms return to the ER. Problem Qualifiers AMRIK JO DO Jun 26, 2019 14:42
[2019-06-26 14:45] VITALS: BP 140/88
== END 2019-06-26 14:55 | disposition home or self-care (01) ==
LOC: ER 11:38
DX: R53.1 Weakness (principal); R47.81 Slurred speech; I13.0 Hypertensive heart and chronic kidney disease with heart failure and stage 1 through stage 4 chronic kidney disease, or unspecified chronic kidney disease; E11.22 Type 2 diabetes mellitus with diabetic chronic kidney disease; I50.9 Heart failure, unspecified; E78.00 Pure hypercholesterolemia, unspecified; I97.821 Postprocedural cerebrovascular infarction following other surgery; Z86.73 Personal history of transient ischemic attack (TIA), and cerebral infarction without residual deficits; Z90.49 Acquired absence of other specified parts of digestive tract; Z90.89 Acquired absence of other organs; Z90.710 Acquired absence of both cervix and uterus; Z95.0 Presence of cardiac pacemaker; Z98.890 Other specified postprocedural states; Z88.5 Allergy status to narcotic agent; Z88.6 Allergy status to analgesic agent; Z88.8 Allergy status to other drugs, medicaments and biological substances
CPT/HCPCS: 36415; 71045; 80053; 83735; 85025; 85610; 85730; 87804; 99285